=== PATIENT | male | born 1955 | race Caucasian/White ===

== ENCOUNTER 2017-06-20 15:14 | Emergency (ER) | payer MEDICAID ==
[~2017-06-20] VITALS: Ht 170.2 cm; Wt 75.0 kg
[~2017-06-20 15:14] MED LIST: CYAN100015 IM; CYCL-36 PO; ENAL20TA81 PO; HYDR12.56 PO; ISOS30TA17 PO; METO100T PO; NITR0.4S SL; OMEP20TA39 PO; PRED5TAB PO; SIMV20 PO; SULF500 PO
[2017-06-20 15:25] VITALS: BP 212/104; PULSE 77; RESP 16; TEMP 98; O2SAT 100
[2017-06-20 15:28] VITALS: BP 208/104; PULSE 75; RESP 16; O2SAT 99
--- NOTE | 2017-06-20 15:44 | PD ---
HPI . Right-sided flank pain Chief Complaint: Flank/Kidney Pain Time Seen by Provider: 15:44 Travel History International Travel<30 days: No Contact w/Intl Traveler<30days: No Traveled to known affect area: No History of Present Illness HPI 61-year-old male presents to the emergency department via EMS for evaluation of sudden onset right-sided flank pain that started around 9 AM this morning. Patient states pain like this has never happened before. Patient does not have any history of nephrolithiasis. Patient denies any traumas or injuries occurring before the pain started. Patient states he was sitting in a chair relaxing when the pain came out of nowhere. Patient states he does not feel nauseous now however he has vomited a couple times today due to the pain being so severe. Patient denies any dysuria or hematuria. Patient denies any chest pain, shortness breath, fevers, chills, malaise, abdominal pain, diarrhea, lightheadedness or weakness. PFSH Past Medical History Hx Anticoagulant Therapy: Yes (650 MG ASPIRIN DAILY) Anemia: Yes Cancer: Yes Cardiac Catheterization: Yes Cardiovascular Problems: Yes (STENTS) High Cholesterol: Yes Chemotherapy: No Chest Pain: Yes Congestive Heart Failure: No Cerebrovascular Accident: No Coronary Artery Disease: Yes Diabetes: No Diminished Hearing: No Endocrine: No Gastrointestinal Disorders: Yes (CROHN'S DISEASE) GERD: Yes Genitourinary: No Hypertension: Yes Immune Disorder: No Musculoskeletal: No Neurologic: No Psychiatric: No Reproductive: No Respiratory: No Immunizations Current: No Myocardial Infarction: Yes (IN X5) Triglycerides - High: Yes Tetanus Vaccination: < 5 Years Influenza Vaccination: No Past Surgical History Body Medical Devices: cardiac stents Cardiac Surgery: Yes (3 CARDIAC STENTS, CARDIAC CATH) Coronary Stent: Yes Neurologic Surgery: No Oral Surgery: Yes (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) Other Surgery: Yes (NOSE, FACE, NECK, JAW CANCER REMOVAL) Social History Alcohol Use: No Tobacco Use: No Substance Use: No Allergies-Medications (Allergen,Severity, Reaction): Coded Allergies: adhesive (Verified Allergy, Severe, TAPE = RASH & WELTS, 06/20/17) penicillin G (Verified Allergy, Severe, Rash, 06/20/17) Reported Meds & Prescriptions Reported Meds & Active Scripts Active Ketorolac (Ketorolac Tromethamine) 10 Mg Tab 10 Mg PO TID Percocet (Oxycodone-Acetaminophen) 10-325 mg Tab 1 Tab PO Q4H PRN Zofran Odt (Ondansetron Odt) 4 Mg Tab 4 Mg SL Q6HR PRN Review of Systems Except as stated in HPI: all other systems reviewed are Neg Physical Exam Narrative GENERAL: Well-nourished, well-developed 61-year-old male patient that is writhing in pain on the stretcher SKIN: Focused skin assessment flushed/warm/dry. HEAD: Normocephalic. Atraumatic EYES: No scleral icterus. No injection or drainage. NECK: Supple, trachea midline. No JVD or lymphadenopathy. CARDIOVASCULAR: Regular rate and rhythm without murmurs, gallops, or rubs. RESPIRATORY: Breath sounds equal bilaterally. No accessory muscle use. GASTROINTESTINAL: Abdomen soft, non-tender, nondistended. MUSCULOSKELETAL: No cyanosis, or edema. BACK: Nontender without obvious deformity. Right sided CVA tenderness. Data Data Last Documented VS Vital Signs Date Time Temp Pulse Resp B/P (MAP) Pulse Ox O2 Delivery O2 Flow Rate FiO2 06/20/17 16:09 75 16 180/96 (124) 99 Room Air 06/20/17 15:25 98.0 Orders Orders Hydromorphone Pf Inj (Dilaudid Pf Inj) (06/20/17 15:45) Basic Metabolic Panel (Bmp) (06/20/17 15:38) Complete Blood Count With Diff (06/20/17 15:38) Urinalysis - C+S If Indicated (06/20/17 15:38) Iv Access Insert/Monitor (06/20/17 15:38) Ondansetron Inj (Zofran Inj) (06/20/17 15:45) Sodium Chlor 0.9% 1000 Ml Inj (Ns 1000 M (06/20/17 15:45) Lipase (06/20/17 15:38) Ct Abd/Pel W/O Iv Contrast (06/20/17 ) Ketorolac Inj (Toradol Inj) (06/20/17 17:00) Labs Laboratory Tests Test 06/20/17 15:45 White Blood Count 19.6 TH/MM3 Red Blood Count 4.20 MIL/MM3 Hemoglobin 13.4 GM/DL Hematocrit 37.2 % Mean Corpuscular Volume 88.4 FL Mean Corpuscular Hemoglobin 31.8 PG Mean Corpuscular Hemoglobin Concent 35.9 % Red Cell Distribution Width 13.5 % Platelet Count 308 TH/MM3 Mean Platelet Volume 7.8 FL Neutrophils (%) (Auto) 89.7 % Lymphocytes (%) (Auto) 3.3 % Monocytes (%) (Auto) 7.0 % Eosinophils (%) (Auto) 0.0 % Basophils (%) (Auto) 0.0 % Neutrophils # (Auto) 17.6 TH/MM3 Lymphocytes # (Auto) 0.6 TH/MM3 Monocytes # (Auto) 1.4 TH/MM3 Eosinophils # (Auto) 0.0 TH/MM3 Basophils # (Auto) 0.0 TH/MM3 CBC Comment DIFF FINAL Differential Comment Urine Color YELLOW Urine Turbidity CLEAR Urine pH 5.5 Urine Specific [place] 1.025 Urine Protein NEG mg/dL Urine Glucose (UA) NEG mg/dL Urine Ketones 40 mg/dL Urine Occult Blood TRACE Urine Nitrite NEG Urine Bilirubin NEG Urine Urobilinogen LESS THAN 2.0 MG/DL Urine Leukocyte Esterase NEG Urine RBC 1 /hpf Urine WBC 1 /hpf Urine Mucus FEW /lpf Microscopic Urinalysis Comment CULT NOT INDICATED Blood Urea Nitrogen 14 MG/DL Creatinine 1.30 MG/DL Random Glucose 151 MG/DL Calcium Level 8.2 MG/DL Sodium Level 140 MEQ/L Potassium Level 2.8 MEQ/L Chloride Level 105 MEQ/L Carbon Dioxide Level 22.7 MEQ/L Anion Gap 12 MEQ/L Estimat Glomerular Filtration Rate 56 ML/MIN Lipase 147 U/L MDM Medical Decision Making Medical Screen Exam Complete: Yes Emergency Medical Condition: Yes Medical Record Reviewed: Yes Interpretation(s) Hypertensive, afebrile Differential Diagnosis Differential diagnoses include but not limited to nephrolithiasis, UTI, pyelonephritis, AAA, aortic dissection, Narrative Course Patient was placed on monitor, IV obtained and blood work sent to the lab. UA obtained and sent to the lab. Patient given 1 mg IV Dilaudid and 4 mg IV Zofran to treat his pain and nausea at this time. Patient given 1 L normal saline bolus. CT of abdomen without contrast ordered and pending. CBC, CMP and UA ordered and pending. Abdomen CT reveals Partial obstruction of the right kidney secondary to 3 mm right UVJ calcification. Moderate hydronephrosis and marked stranding around the right kidney. Areas of distortion within the mesentery related to previous surgery. The mesentery looks like it would be symptomatic but the patient clearly affected by the right UVJ calculus. Patient will be given 30 mg IV Toradol. Based on patient's symptoms, clinical presentation, lab results, radiological results, vital sign review and physical exam it is not necessary to admit the patient to the hospital or keep the patient in the emergency department for further evaluation. Patient will be discharged home with prescription for Percocet, Toradol, Flomax and Zofran. Patient will be given a urinary strainer to collect the stone and given instructions to follow-up with the urologist. Laboratory Tests Test 06/20/17 15:45 White Blood Count 19.6 TH/MM3 Red Blood Count 4.20 MIL/MM3 Hemoglobin 13.4 GM/DL Hematocrit 37.2 % Mean Corpuscular Volume 88.4 FL Mean Corpuscular Hemoglobin 31.8 PG Mean Corpuscular Hemoglobin Concent 35.9 % Red Cell Distribution Width 13.5 % Platelet Count 308 TH/MM3 Mean Platelet Volume 7.8 FL Neutrophils (%) (Auto) 89.7 % Lymphocytes (%) (Auto) 3.3 % Monocytes (%) (Auto) 7.0 % Eosinophils (%) (Auto) 0.0 % Basophils (%) (Auto) 0.0 % Neutrophils # (Auto) 17.6 TH/MM3 Lymphocytes # (Auto) 0.6 TH/MM3 Monocytes # (Auto) 1.4 TH/MM3 Eosinophils # (Auto) 0.0 TH/MM3 Basophils # (Auto) 0.0 TH/MM3 CBC Comment DIFF FINAL Differential Comment Urine Color YELLOW Urine Turbidity CLEAR Urine pH 5.5 Urine Specific [place] 1.025 Urine Protein NEG mg/dL Urine Glucose (UA) NEG mg/dL Urine Ketones 40 mg/dL Urine Occult Blood TRACE Urine Nitrite NEG Urine Bilirubin NEG Urine Urobilinogen LESS THAN 2.0 MG/DL Urine Leukocyte Esterase NEG Urine RBC 1 /hpf Urine WBC 1 /hpf Urine Mucus FEW /lpf Microscopic Urinalysis Comment CULT NOT INDICATED Blood Urea Nitrogen 14 MG/DL Creatinine 1.30 MG/DL Random Glucose 151 MG/DL Calcium Level 8.2 MG/DL Sodium Level 140 MEQ/L Potassium Level 2.8 MEQ/L Chloride Level 105 MEQ/L Carbon Dioxide Level 22.7 MEQ/L Anion Gap 12 MEQ/L Estimat Glomerular Filtration Rate 56 ML/MIN Lipase 147 U/L Diagnosis Primary Impression: Right nephrolithiasis Referrals: Primary Care Physician Urologist Patient Instructions: General Instructions, Kidney Stones (GEN) Additional Instructions: Please return to emergency department if your symptoms return or worsen. Follow up with your primary care provider. Take medications as prescribed. Takes Zofran as directed as needed for nausea. Take Percocet as distracted as needed for pain. Use caution as this medication might make you drowsy. Take Toradol as directed as needed for pain. Med/Other Pt SpecificInfo: Prescription(s) given Scripts Tamsulosin (Flomax) 0.4 Mg Cap 0.4 MG PO HS for Manage Prostate Problems, #5 CAP 0 Refills Prov: Lottie Fierro 06/20/17 Ketorolac (Ketorolac) 10 Mg Tab 10 MG PO TID for Pain Management, #20 TAB 0 Refills Prov: Gilbert Morales MD 06/20/17 Oxycodone-Acetaminophen (Percocet) 10-325 mg Tab 1 TAB PO Q4H Y for PAIN, #12 TAB 0 Refills Prov: Gilbert Morales MD 06/20/17 Ondansetron Odt (Zofran Odt) 4 Mg Tab 4 MG SL Q6HR Y for Nausea/Vomiting, #10 TAB 0 Refills Prov: Lottie Fierro 06/20/17 Disposition: 01 DISCHARGE HOME Condition: Stable Lottie Fierro Jun 20, 2017 15:44
[2017-06-20] MEDS ORDERED: HYDROmorphone HCL PF 1 MG/ML VIAL IV PUSH ONE (15:45)
[2017-06-20] MEDS ORDERED: SODIUM CHLOR 0.9% 1000 ML INJ 1,000 ML IV ONE (15:45)
[2017-06-20] MEDS ORDERED: ONDANSETRON HCL 4 MG/2 ML VIAL IVP ONE (15:45)
[2017-06-20 16:09] VITALS: BP 180/96; PULSE 75; RESP 16; O2SAT 99
[2017-06-20 16:29] LABS: AUTOMATED NEUTROPHIL # 17.6 TH/MM3 (1.8-7.7); HEMATOCRIT 37.2 % (39.0-51.0); HEMO FLAGS DIFF FINAL; LYMPH % 3.3 % (9.0-44.0); LYMPHOCYTE # 0.6 TH/MM3 (1.0-4.8); MEAN CELL VOLUME 88.4 FL (80.0-100.0); MEAN CORPUSCULAR HEMOGLOBIN 31.8 PG (27.0-34.0); MEAN CORPUSCULAR HGB CONC 35.9 % (32.0-36.0); NEUT % 89.7 % (16.0-70.0); PLATELET COUNT 308 TH/MM3 (150-450); RED CELL DISTRIBUTION WIDTH 13.5 % (11.6-17.2); WHITE BLOOD COUNT 19.6 TH/MM3 (4.0-11.0)
[2017-06-20 16:41] LABS: BLOOD, URINE TRACE (NEG); GLUCOSE,URINE NEG (NEG); KETONE, URINE 40 mg/dL (NEG); MUCUS URINE FEW /lpf (OCC); NITRITE,URINE NEG (NEG); PH, URINE 5.5 (5.0-8.5); URINE COLOR YELLOW (YELLW/STRAW)
[2017-06-20 16:44] LABS: COMMENT (UR) CULT NOT INDICATED; CULTURE IF INDICATED CULT NOT INDICATED
[2017-06-20 16:51] LABS: BICARBONATE 22.7 MEQ/L (21.0-32.0)
[2017-06-20 16:53] LABS: POTASSIUM 2.8 MEQ/L (3.5-5.1)
[2017-06-20] MEDS ORDERED: ZOFR4TAB3 SL (16:57)
[2017-06-20] MEDS ORDERED: PERC10TA27 PO (16:58)
[2017-06-20] MEDS ORDERED: KETO10 PO (16:58)
[2017-06-20] MEDS ORDERED: KETOROLAC TROMETHAMINE 30 MG/ML (IVP) VIAL IV PUSH ONE (17:00)
--- NOTE | 2017-06-20 17:01 | RADRPT ---
EXAM DATE/TIME: 06/20/2017 16:22 [facility] COMPARISON: CT ABDOMEN & PELVIS W/O CONTRAST, September 15, 2015, 7:47. INDICATIONS : Right flank pain today. ORAL CONTRAST: No oral contrast ingested. RADIATION DOSE: 13.55 CTDIvol (mGy) MEDICAL HISTORY : Hypertension. Cardiovascular disease SURGICAL HISTORY : None. ENCOUNTER: Initial ACUITY: 1 day PAIN SCALE: 7/10 LOCATION: Right flank TECHNIQUE: Volumetric scanning of the abdomen and pelvis was performed. Using automated exposure control and ad justment of the mA and/or kV according to patient size, radiation dose was kept as low as reasonably achievable to obtain optimal diagnostic quality images. DICOM format image data is available electro nically for review and comparison. FINDINGS: LOWER LUNGS: The visualized lower lungs are clear. LIVER: Homogeneous density without lesion. There is no dilation of the biliary tree. No calcified gallston es. SPLEEN: Normal size without lesion. PANCREAS: Within normal limits. KIDNEYS: There is hydronephrosis on the right side. The right kidney is enlarged with marked perinephric stran ding. The ureter is dilated all the way to the right UVJ where there is a 3 mm calcification. 2 small stones remain in an otherwise unremarkable left kidney ADRENAL GLANDS: Within normal limits. VASCULAR: There is no aortic aneurysm. 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 The large calcification seen at 2014 is no longer identified. ABDOMINAL WALL: Within normal limits. RETROPERITONEUM: There is no lymphadenopathy. BLADDER: No wall thickening or mass. REPRODUCTIVE: Within normal limits. INGUINAL: Fat-containing left inguinal hernia. MUSCULOSKELETAL: Within normal limits for patient age. CONCLUSION: Partial obstruction of the right kidney secondary to 3 mm right UVJ calcification. Moderate hydronep hrosis and marked stranding around the right kidney. Areas of distortion within the mesentery relate d to previous surgery. The mesentery looks like it would be symptomatic but the patient clearly affec kt by the right UVJ calculus. Richie Charles MD on June 20, 2017 at 16:54 Board Certified Radiologist. This report was verified electronically.
[2017-06-20] MEDS ORDERED: TAMS5CAP PO (17:10)
[2017-06-20 17:37] VITALS: BP 152/92
== END 2017-06-20 17:44 | disposition home or self-care (01) ==
LOC: NEPE 15:14
DX: N20.0 Calculus of kidney (principal); D64.9 Anemia, unspecified; I10 Essential (primary) hypertension; Z79.01 Long term (current) use of anticoagulants
CPT/HCPCS: 74176; 80048; 81001; 83690; 85025; 96374; 96375; 99285; J1170; J1885; J2405; J7030

== ENCOUNTER 2018-08-28 16:55 | Inpatient (IN) ==
[2018-08-28] MEDS ORDERED: niCARdipine Inj 25 MG in Sodium Chlor 0.9% Inj 240 ML IV.CONT PRN (17:07)
--- NOTE | 2018-08-28 17:21 | CT ---
EXAM DATE: 08/28/2018 5:18 PM EST AGE/SEX: 62 years / Male INDICATIONS: Stroke alert, left sided weakness. CLINICAL DATA: This is the patient's initial encounter. Patient reports that signs and symptoms have been present for 1 day and indicates a pain score of Nonresponsive. MEDICAL/SURGICAL HISTORY: Non-responsive. Non-responsive. RADIATION DOSE: 66.34 CTDI (mGy) COMPARISON: No prior exams available for comparison. TECHNIQUE: CT of the head without contrast. Using automated exposure control and adjustment of the mA and/or kV according to patient size, radiation dose was kept as low as reasonably achievable to ob tain optimal diagnostic quality images. DICOM format image data is available electronically for revi ew and comparison. FINDINGS: Cerebrum: The ventricles are normal for age. No evidence of midline shift, mass lesion, hemorrhage or acute infarction. No extraaxial fluid collections are seen. Posterior Fossa: The cerebellum and brainstem are intact. The 4th ventricle is midline. The cerebe llopontine angle is unremarkable. Extracranial: The visualized portion of the orbits is intact. Skull: The calvaria is intact. No evidence of skull fracture. CONCLUSION: Negative noncontrast CT examination the head. Report was called by Dr. Llanos to Dr. Watts at 5:19 PM Electronically signed by: Peter Llanos MD 08/28/2018 5:20 PM EST
[2018-08-28 17:29] LABS: Baso # (Auto) 0.1 th/mm3 (0.0-0.2); Baso % (Auto) 0.6 % (0.0-2.0); Eos % (Auto) 0.1 % (0.0-4.0); Hematocrit 35.1 % (39.0-51.0); Hemoglobin 11.8 gm/dL (13.0-17.0); Lymph # (Auto) 2.9 th/mm3 (1.0-4.8); Lymph % (Auto) 21.5 % (9.0-44.0); Mean Corpuscular HGB Conc 33.5 % (32.0-36.0); Mean Corpuscular Hemoglobin 27.5 pg (27.0-34.0); Mean Corpuscular Volume 82.1 fL (80.0-100.0); Mean Platelet Volume 7.7 fL (7.0-11.0); Mono # (Auto) 1.3 th/mm3 (0.0-0.9); Mono % (Auto) 9.6 % (0.0-8.0); Neut # (Auto) 9.2 th/mm3 (1.8-7.7); Neut % (Auto) 68.2 % (16.0-70.0); Platelet Count 439 th/mm3 (150-450); Red Blood Count 4.27 mil/mm3 (4.50-5.90); Red Cell Distribution Width 16.7 % (11.6-17.2); White Blood Count 13.5 th/mm3 (4.0-11.0)
--- NOTE | 2018-08-28 17:32 | CT ---
EXAM DATE: 08/28/2018 5:23 PM EST AGE/SEX: 62 years / Male INDICATIONS: Stroke alert, left sided weakness. CLINICAL DATA: This is the patient's initial encounter. Patient reports that signs and symptoms have been present for 1 day and indicates a pain score of Nonresponsive. MEDICAL/SURGICAL HISTORY: Non-responsive. Non-responsive. RADIATION DOSE: 9.85 CTDI (mGy) ; Combined studies COMPARISON: C, CT HEAD W/O CONTRAST, 08/28/2018. [facility] [place], CTA NECK W CONTRAST W 3D, 08/28/2018. . TECHNIQUE: Volumetric scanning was performed using a multi-row detector CT scanner during bolus infu jaime of 75 ml Visipaque 320 (iodixanol) nonionic water-soluble contrast as a cumulative dose for mul tiple exams. The data was post processed with a variety of visualization algorithms including full volume maximum intensity projection, multi-planar sliding thin slab reformation, curved planar reform ation, and surface rendering techniques. Using automated exposure control and adjustment of the mA a nd/or kV according to patient size, radiation dose was kept as low as reasonably achievable to obtain optimal diagnostic quality images. DICOM format image data is available electronically for review a nd comparison. FINDINGS: Anterior circulation: There is a calcified atherosclerotic plaque in the intracranial aspect of the i nternal carotid arteries bilaterally causing mild luminal irregularity and only mild luminal narrowin g. No high-grade stenosis is present. A1 segments are patent and symmetric. More peripheral anterior cerebral arteries demonstrate flow without significant abnormality. The middle cerebral arteries bila terally demonstrate symmetric blood flow without vessel truncation or high-grade stenosis. No aneurys m is identified. Posterior circulation: Portions of the left vertebral artery demonstrate no blood flow but it is jerad nstituted at the C1 level. Basilar artery and posterior cerebral arteries demonstrate no significant stenosis. There is persistent circulation on the right. CONCLUSION: 1. No large vessel occlusion is identified. There is mild to moderate calcified atherosclerotic plaq ue in the intracranial aspect of the internal carotid arteries bilaterally without high-grade stenosi s. 2. 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 These findings were telephoned to Dr. Shaikh on 08/28/2018 5:30 PM. Electronically signed by: Peter Dobbs MD 08/28/2018 5:31 PM EST
[2018-08-28] MEDS ORDERED: Labetalol HCl Inj 100 MG/20 ML Vial IV.PUSH PRN (17:38)
--- NOTE | 2018-08-28 17:44 | ED ---
HPI General Chief Complaint: Stroke Alert Stated Complaint: Stroke Alert Time Seen by Provider: 08/28/18 17:05 Source: patient and EMS Mode of arrival: EMS Limitations: no limitations History of Present Illness HPI Narrative: 62 yo M one prior to onset developed LUE and LUE weakness evidently coupled with dysarthria. Onset sudden. Timing constant. Time of onset approx 400pm. No headache prior to onset. Onset occurred at rest. + Hx Crohn's disease. No GI bleed reported within last 12 months. No similar prior episode. Onset (ago): hour(s) (1) History of same: No Severity: moderate Quality: Reports weak Relieving factors: none Exacerbating factors: none Context: Reports sudden onset On Anticoagulants: No Treatments Prior to Arrival: Reports none Related Data Allergies Allergy/AdvReac Type Severity Reaction Status Date / Time adhesive Allergy Severe TAPE = Verified 06/20/17 15:33 RASH & WELTS penicillin G Allergy Severe Rash Verified 06/20/17 15:33 Review of Systems ROS: all other systems reviewed are negative [facility] Medical History Medical History Acute Crohn's disease (Acute) CAD (coronary artery disease) (Acute) CHF (congestive heart failure) (Acute) Skin cancer (melanoma) (Acute) Social History Social History Substance History: No History of Abuse Second Hand Smoke Exposure: No Smoking Status: Never smoker How Often Do You Have a Drink Containing Alcohol: Never Recent Travel in [facility] within the Last 8 Weeks: No Recent Out of Country Travel within the Last 8 Weeks: No Exam Narrative Exam Narrative: GENERAL: 62 yo M, WNWD, mild distress 2/2 anxiety and/or pain SKIN: Focused skin assessment warm/dry. HEAD: Atraumatic. Normocephalic. EYES: Pupils equal and round. No scleral icterus. No injection or drainage. ENT: No nasal bleeding or discharge. Mucous membranes pink and moist. NECK: Trachea midline. No JVD. CARDIOVASCULAR: Regular rate and rhythm. No murmur appreciated. RESPIRATORY: No accessory muscle use. Clear to auscultation. Breath sounds equal bilaterally. GASTROINTESTINAL: Abdomen soft, non-tender, nondistended. Hepatic and splenic margins not palpable. MUSCULOSKELETAL: No obvious deformities. No clubbing. No cyanosis. No edema. NEUROLOGICAL: LUE weakness present. LUE weakness present. Sensation is preserved throughout. RUE strength normal. RLE strength normal. CN are equal bilaterally. Speech is fluent. PSYCHIATRIC: Cooperative. No HI/SI. Procedures Hemaprompt Stool Procedural Steps Taken: specimen placed in appropriate test area, developer placed on specimen and control areas and controls appropriately positive and negative Hemaprompt Stool Result: positive Course Initial Documented Vital Signs Temperature 98.5 F 08/28/18 17:38 Pulse Rate 104 H 08/28/18 17:38 Respiratory Rate 18 08/28/18 17:38 Blood Pressure 176/99 H 08/28/18 17:38 Pulse Oximetry 91 L 08/28/18 17:38 Last Documented Vital Signs Temperature 98.3 F 08/28/18 17:45 Pulse Rate 96 H 08/28/18 17:45 Respiratory Rate 18 08/28/18 17:45 Blood Pressure 174/99 H 08/28/18 17:45 Pulse Oximetry 94 L 08/28/18 17:45 Critical Care Time Critical Care Time: Yes Total Critical Care Time: 31 Attestation: Aggregate critical care time was 31 minutes. Time to perform other separately billable procedures was not included in the critical care time. My time did not include minutes spent treating any other patients simultaneously or on activities that did not directly contribute to the patient's treatment. The services I provided to this patient were to treat and/or prevent clinically significant deterioration that could result in: permanent disability, inappropriate TPA administration I provided critical care services requiring my management, as noted below: Chart data review, documentation time, medication orders and management, vital sign assessments/reviewing monitor data, ordering and reviewing lab tests, ordering and interpreting/reviewing x-rays and diagnostic studies, care of the patient and discussion of the patient with the admitting physicians. NIH Stroke Scale NIH Stroke Scale Level of Consciousness: 0-Alert Orientation Questions: 0-Answers both correct Responds to Commands: 0-Both tasks correct Gaze Eye Movement: 0-Horizontal movement WNL Visual Arechiga: 0-No visual field defect Facial Movement: 0-Normal Motor Functions Arm LEFT: 3-No effort against gravity Motor Functions Arm RIGHT: 0-No drift Motor Functions Leg LEFT: 4-No movement Motor Functions Leg RIGHT: 0-No drift Limb Ataxia: 0-No ataxia Sensory Loss: 0-No sensory loss Best Language: 0-Normal Articulation: 0-Normal Extinction or Inattention Sensory: 0-Absent Total: 7 Quality Measure Queries Stroke Thrombolytic Contraindications: Active Internal Bleeding (Grossly positive stool guaiac study) Medical Decision Making MDM Narrative Medical decision making narrative: Pt arrives as a stroke alert 2/2 L sided weakness. Normal head CT. Stool guaiac grossly positive. TPA withheld due to concern for GI bleed. BP has trended between 180s-210s in ED. d/w Dr Shaikh for neurology, no TPA in setting of positive stool guaiac, ok for permissive HTN up to 210. call to admitted service at 535pm Purposeful intermittent LUE motor activity observed in the ED. d/w Dr Mason for [facility] Medical Screen Exam Complete: Yes Emergency Medical Condition: Yes Lab Data Lab results reviewed: Yes I reviewed the patient's lab results. Result diagrams: 08/28/18 17:00 08/28/18 17:00 Lab Results 08/28/18 08/28/18 08/28/18 Range/Units 17:00 17:00 17:00 WBC 13.5 H (4.0-11.0) th/mm3 RBC 4.27 L (4.50-5.90) mil/mm3 Hgb 11.8 L (13.0-17.0) gm/dL POC Hgb (Calc) 11.9 L (13.0-17.0) g/dL Hct 35.1 L (39.0-51.0) % POC Hct 35.0 L (39-51.0) % MCV 82.1 (80.0-100.0) fL MCH 27.5 (27.0-34.0) pg MCHC 33.5 (32.0-36.0) % RDW 16.7 (11.6-17.2) % Plt Count 439 (150-450) th/mm3 MPV 7.7 (7.0-11.0) fL Neut % (Auto) 68.2 (16.0-70.0) % Lymph % (Auto) 21.5 (9.0-44.0) % [place] % (Auto) 9.6 H (0.0-8.0) % Eos % (Auto) 0.1 (0.0-4.0) % Baso % (Auto) 0.6 (0.0-2.0) % Neut # (Auto) 9.2 H (1.8-7.7) th/mm3 Lymph # (Auto) 2.9 (1.0-4.8) th/mm3 [place] # (Auto) 1.3 H (0.0-0.9) th/mm3 Eos # (Auto) 0.0 (0.0-0.4) th/mm3 Baso # (Auto) 0.1 (0.0-0.2) th/mm3 WBC Differential . Differential Comment Auto diff final PT 10.0 (9.8-11.6) sec INR 1.0 Ratio APTT 17.8 L (23.4-31.7) sec POC Sodium 139 (137-144) mmol/L Sodium 141 (136-145) meq/L POC Potassium 3.1 L (3.6-5.0) mmol/L Potassium 3.2 L (3.5-5.1) meq/L POC Chloride 101 L (102-111) mmol/L Chloride 104 (98-107) meq/L Carbon Dioxide 22.5 (21.0-32.0) meq/L Anion Gap 15 (5-15) meq/L POC BUN 14 (5-21) mg/dL BUN 15 (7-18) mg/dL Creatinine 1.12 (0.60-1.30) mg/dL POC Creatinine 1.0 (0.6-1.3) mg/dL Estimated GFR 66 L (>89) mL/min POC Glucose 161 H (68-110) mg/dL Random Glucose 155 H (74-106) mg/dL Calcium 8.5 (8.5-10.1) mg/dL Imaging Data Radiologist's impression: Head CT 08/28/18 17:00 CONCLUSION: Negative noncontrast CT examination the head. Report was called by Dr. Llanos to Dr. Watts at 5:19 PM Head CTA 08/28/18 17:00 CONCLUSION: 1. No large vessel occlusion is identified. There is mild to moderate calcified atherosclerotic plaque in the intracranial aspect of the internal carotid arteries bilaterally without high-grade stenosis. 2. 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 These findings were telephoned to Dr. Shaikh on 08/28/2018 5:30 PM. Discharge Plan Discharge Disposition Patient Disposition: ED Admit(ED Internal Use Only) Discharge Order Discharge Orders: ED Use Only Admit Order (Routine); Ordered 08/28/18 Ordered By: Son Watts Physicians Team ED Provider: Son Watts Primary Care Provider: Geoff Byrd Status ED Status: With Doctor
[2018-08-28 17:48] LABS: Activated Partial Thrombo Time 17.8 sec (23.4-31.7)
[2018-08-28 17:50] LABS: Anion Gap 15 meq/L (5-15); Blood Urea Nitrogen 15 mg/dL (7-18); Calcium 8.5 mg/dL (8.5-10.1); Carbon Dioxide 22.5 meq/L (21.0-32.0); Chloride 104 meq/L (98-107); Glomerular Filtration Rate 66 mL/min (>89); Glucose,Random 155 mg/dL (74-106); Potassium 3.2 meq/L (3.5-5.1); Sodium 141 meq/L (136-145)
[2018-08-28 17:53] LABS: Creatine Kinase 40 U/L (39-308)
--- NOTE | 2018-08-28 17:55 | CT ---
XAM DATE: 08/28/2018 5:38 PM EST AGE/SEX: 62 years / Male INDICATIONS: Stroke alert, left sided weakness. CLINICAL DATA: This is the patient's initial encounter. Patient reports that signs and symptoms have been present for 1 day and indicates a pain score of Nonresponsive. MEDICAL/SURGICAL HISTORY: Non-responsive. Non-responsive. RADIATION DOSE: 9.85 CTDI (mGy) ; Combined studies COMPARISON: . TECHNIQUE: Volumetric scanning was performed using a multirow detector CT scanner during bolus infus ion of 75 ml Visipaque 320 (iodixanol) nonionic water-soluble contrast as a cumulative dose for mult iple exams. The data was postprocessed with a variety of visualization algorithms including full-vo lume maximum intensity projection, multiplanar sliding thin-slab reformation, curved-planar reformati on, and surface-rendering techniques. Using automated exposure control and adjustment of the mA and/ or kV according to patient size, radiation dose was kept as low as reasonably achievable to obtain op timal diagnostic quality images. DICOM format image data is available electronically for review and comparison. FINDINGS: There does appear to be some motion blurring at the level the carotid bulb regions. This m ay be secondary to swallowing during the examination. Aortic Arch: There is a three-vessel origin of the great vessels from the aorta. There is mild soft plaque at the origin of the left subclavian artery without significant stenosis. Right Carotid: The common carotid artery is intact. There is dense calcified plaque at the carotid bulb region. This limits evaluation of the lumen in this region. On the curved reformatted images, th ere appears to be decreased contrast concerning for significant stenosis. The motion blurring this re gion also limits the interpretation of the carotid bulb region. The internal carotid artery lumen i s smooth without stenosis. The external carotid artery is intact. Left Carotid: The common carotid artery is intact. There is mild calcified plaque at the carotid bu lb region but a significant stenosis is not seen. The internal carotid artery lumen is smooth withou t stenosis. The external carotid artery is intact. Vertebrals: The vertebral arteries are asymmetric with the right due to large being larger. It is pa tent throughout the neck. Contrast is not seen within the upper left vertebral artery. It appears to reconstitute with contrast at the C1 level. Percent stenosis is calculated using the diameter of the stenotic region over the diameter of the nor mal distal internal carotid artery. CONCLUSION: 1. Dense calcified plaque at the right carotid bulb region with a possible significant stenosis with decreased contrast in this region. The evaluation this area is limited secondary to the dense calcif ication and suspected motion blurring in this region likely from swallowing. One could consider furth er evaluating this region with a repeat CTA at some point versus an MRA. 2. Possible occlusion versus very diminished flow in the mid to upper aspect of the left vertebral a rtery. There is contrast seen within the proximal left vertebral artery and in the left vertebral art marlena at the C1 level. Electronically signed by: Peter Llanos MD 08/28/2018 5:53 PM EST
--- NOTE | 2018-08-28 17:57 | XR ---
EXAM DATE: 08/28/2018 5:53 PM EST AGE/SEX: 62 years / Male INDICATIONS: Stroke Alert, cough. CLINICAL DATA: This is the patient's initial encounter. Patient reports that signs and symptoms have been present for 1 day and indicates a pain score of 0/10. MEDICAL/SURGICAL HISTORY: Non-responsive. Non-responsive. COMPARISON: [facility], CHEST SINGLE AP, 07/09/2012. . FINDINGS: The heart size is within normal limits. The lungs are free of focal consolidation. There are possible small calcified granulomas seen. The costophrenic angles are clear. CONCLUSION: No acute abnormality is seen. Electronically signed by: Peter Llanos MD 08/28/2018 5:55 PM EST
--- NOTE | 2018-08-28 17:57 | P.HPFP ---
History of Present Illness Primary Care Physician: Geoff Byrd DO <Rodrick Cain - 08/29/18 15:36> Geoff Byrd DO <Aaron Mason - 08/28/18 17:57> History of Present Illness: Patient is a 62-year-old male past history of hypertension, diabetes, Crohn's disease who presents today for left-sided weakness. He reports approximate 5 hours prior to admission he was driving his car home, felt sudden face neck and left shoulder pain as well as could not see out of his right eye. He pulled over his car to the side of the road and waited for it to resolve, which it did not. He was close to his house so he continued to drive home, reached his home and had someone call an ambulance for him. He took 3 nitroglycerin tablets at home to help relieve shoulder pain. They did not. Patient reports he is been having some left side pain and swelling with accompanying dizziness. He denies chest pain, shortness of breath , left jaw pain, changes in hearing, nausea, vomiting, fever, chills, abdominal pain, change in bowel movement, black or bloody stools, urinary incontinence, dysuria, urinary frequency, numbness or tingling in hands or feet. He states he has never had these symptoms before. Patient continues to endorse left- sided weakness and right-sided vision loss at this time. Denies scotoma, blurry vision, double vision. Medical history: HTN DM Crohns disease Surgical history: 3 previous cardiac stents Jaw cancer removal Family history: Mother: [place] at 56 Father: [place], passed at 62 Social history: no tobacco, none, no drugs <Aaron Mason - 08/28/18 21:53> - Diagnosis (1) CVA (cerebral vascular accident) (2) GI bleed (3) Diabetes (4) HTN (hypertension) (5) Hypokalemia <Aaron Mason - 08/28/18 22:08> (1) Right hemisphere, cerebral infarction (2) Symptomatic stenosis of right carotid artery (3) GI bleed (4) Crohns disease (5) Diabetes (6) HTN (hypertension) (7) Hypokalemia <Rodrick Cain - 08/29/18 15:36> Inpatient Certification: I certify that the inpatient services were ordered in accordance with Medicare regulations governing the order. This includes certification that hospital inpatient services are reasonable and necessary and in the case of services not specified as inpatient-only under 42 CFR 419.22(n), that they are appropriately provided as inpatient services in accordance to with the 2-midnight benchmark under 43 CFR 412.3(e) <AntRodrick - 08/29/18 15:36> Review of Systems All other systems reviewed negative except as stated in HPI <Aaron Mason - 08/28/18 17:57> PMFSH - History History Provided By: Patient <BrendonAaron randle - 08/28/18 17:57> - Medical History Medical History: Medical History (Last Updated 08/28/18 @ 17:42 by Peter Camacho) Acute Crohn's disease CAD (coronary artery disease) CHF (congestive heart failure) Skin cancer (melanoma) <CainRodrick - 08/29/18 15:36> Medical History (Last Updated 08/28/18 @ 17:42 by Peter Camacho) Acute Crohn's disease CAD (coronary artery disease) CHF (congestive heart failure) Skin cancer (melanoma) <Aaron Mason - 08/28/18 17:57> - Tobacco History Second Hand Smoke Exposure: No <Aaron Mason - 08/28/18 17:57> Tobacco Use In Past 30 Days: No <Aaron Mason - 08/28/18 17:57> Smoking Status: Never smoker <Aaron Mason - 08/28/18 17:57> - Alcohol History How Often Do You Have a Drink Containing Alcohol: Never <Aaron Mason - 17:57> - Substance Use History Substance History: No History of Abuse <Aaron Mason - 08/28/18 17:57> - Travel History Recent Travel in the [place] Within the Last 8 Weeks: No <Aaron Mason - 08/28 17:57> Recent Travel Out of the Country Within the Last 8 Weeks: No <Aaron Mason - 08/28/18 17:57> - Immunization History Tetanus Immunization: Unsure <Aaron Mason - 08/28/18 17:57> Medications and Allergies Allergies Allergy/AdvReac Type Severity Reaction Status Date / Time adhesive Allergy Severe TAPE = Verified 06/20/17 15:33 RASH & WELTS penicillin G Allergy Severe Rash Verified 06/20/17 15:33 <Rodrick Cain - 08/29/18 15:36> Home Medications Medication Instructions Recorded Confirmed Type aspirin 325 mg PO DAILY 08/28/18 08/28/18 History enalapril maleate 20 mg PO DAILY 08/28/18 08/28/18 History hydrochlorothiazide 25 mg PO DAILY 08/28/18 08/28/18 History isosorbide mononitrate 30 mg PO DAILY 08/28/18 08/28/18 History metoprolol tartrate 100 mg PO BID 08/28/18 08/28/18 History nitroglycerin 0.4 mg SUBLINGUAL Q5-15M PRN 08/28/18 08/28/18 History prednisone 10 mg PO DAILY 08/28/18 08/28/18 History prednisone 10 mg PO DAILY 08/28/18 08/28/18 History ranitidine HCl 300 mg PO DAILY 08/28/18 08/28/18 History simvastatin 20 mg PO QPM 08/28/18 08/28/18 History sulfasalazine 0.5 g PO Q6H 08/28/18 08/28/18 History <Rodrick Cain - 08/29/18 15:36> Active Medications: Active Medications Albuterol (Duoneb Neb (Prn)) 1 ampul NEB Q2HR NEB PRN PRN Reason: DYSPNEA Albuterol (Duoneb Neb (Galo)) 1 ampul NEB Q6HR NEB [facility] Last Admin: 08/29/18 15:31 Dose: 1 ampul Aspirin (Ecotrin) 325 mg PO DAILY G[facility]O Last Admin: 08/29/18 09:22 Dose: Not Given Dextrose (D50w Vial) 50 ml IV.PUSH UNSCH PRN PRN Reason: PER HYPOGLYCEMIA PROTOCOL Dextrose (D50w Vial) 50 ml IV.PUSH UNSCH PRN PRN Reason: PER HYPOGLYCEMIA PROTOCOL Glucagon (Glucagon Inj) 1 mg OTHER UNSCH PRN PRN Reason: for Hypoglycemia Protocol Glucagon (Glucagon Inj) 1 mg OTHER PRN PRN PRN Reason: for Hypoglycemia Protocol Nicardipine HCl 25 mg/ Sodium (Chloride) 250 mls @ 50 mls/hr IV.CONT TITRATE PRN; Protocol PRN Reason: Per Protocol Nitroglycerin/Dextrose (Nitroglycerin Drip Premix) 50 mg in 250 mls @ 12 mls/ hr IV.CONT TITRATE PRN; Protocol PRN Reason: Per Protocol Magnesium Sulfate 4 gm/ Sodium (Chloride) 100 mls @ 50 mls/hr IV.SIG UNSCH PRN PRN Reason: For Magnesium 0.9 - 1.1 mg/dL Potassium Chloride (Kcl 40 Meq Premix Inj) 40 meq in 100 mls @ 50 mls/hr IV.SIG Q2H PRN PRN Reason: For Potassium 2.8 - 3.2 mEq/L Potassium Chloride (Kcl 20 Meq Premix Inj) 20 meq in 100 mls @ 50 mls/hr IV.SIG Q2H PRN PRN Reason: For Potassium 3.3 - 3.5 mEq/L Potassium Chloride (Kcl 40 Meq Premix Inj) 40 meq in 100 mls @ 25 mls/hr IV.SIG UNSCH PRN PRN Reason: For Potassium 3.3 - 3.5 mEq/L Potassium Chloride (Kcl 20 Meq Premix Inj) 20 meq in 100 mls @ 50 mls/hr IV.SIG Q2H PRN PRN Reason: For Potassium 2.8 - 3.2 mEq/L Sodium Phosphate 30 mmol/ (Sodium Chloride) 260 mls @ 42 mls/hr IV.SIG UNSCH PRN PRN Reason: For Phosphorus < 2.5 mg/dL Magnesium Sulfate 2 gm/ Sodium (Chloride) 100 mls @ 50 mls/hr IV.SIG UNSCH PRN PRN Reason: For Magnesium 1.2 - 1.6 mg/dL Potassium Phosphate 30 mmol/ (Sodium Chloride) 260 mls @ 42 mls/hr IV.SIG UNSCH PRN PRN Reason: SEE LABEL COMMENTS Insulin Aspart (Novolog Insulin Correctional Sugar Inj) 0 unit SQ Q6HR GALO; Protocol Labetalol HCl (Trandate Inj) 5 mg IV.PUSH Q4H PRN PRN Reason: BP 210/110 Magnesium Oxide (Mag-Ox) 800 mg PO UNSCH PRN PRN Reason: For Magnesium 1.2 - 1.6 mg/dL Morphine Sulfate (Morphine Inj) 1 mg IV.PUSH Q4H PRN PRN Reason: DYSPNEA Potassium Bicarb/Potassium Chloride (K-Lyte Cl Eff) 50 meq PO UNSCH PRN PRN Reason: For Potassium 3.3 - 3.5 mEq/L Potassium Phosphate (K-Phos Original) 2,000 mg PO Q4H PRN PRN Reason: Phosphorus Less Than 2.5 mg/dL Potassium Phosphate (K-Phos Original) 2,000 mg PO UNSCH PRN PRN Reason: SEE LABEL COMMENTS Pravastatin Sodium (Pravachol) 40 mg PO DAILY [facility] Last Admin: 08/29/18 09:23 Dose: 40 mg Sulfasalazine (Azulfidine) 500 mg PO Q6HR [facility] Last Admin: 08/29/18 06:11 Dose: 500 mg <Rodrick Cain - 08/29/18 15:36> Active Medications Aspirin (Ecotrin) 325 mg PO DAILY [facility] Nicardipine HCl 25 mg/ Sodium (Chloride) 250 mls @ 50 mls/hr IV.CONT TITRATE PRN; Protocol PRN Reason: Per Protocol Labetalol HCl (Trandate Inj) 5 mg IV.PUSH Q4H PRN PRN Reason: BP 210/110 <Aaron Mason - 08/28/18 17:57> Exam Vital signs: Vital Signs 08/28/18 17:38 08/28/18 17:45 08/28/18 17:53 Temperature 98.5 F 98.3 F Pulse Rate 104 H 96 H Respiratory Rate 18 18 Blood Pressure 176/99 H 174/99 H Pulse Oximetry 91 L 94 L 93 L 08/28/18 18:46 08/28/18 19:45 08/28/18 21:00 Temperature 97.9 F Pulse Rate 73 87 78 Respiratory Rate 18 18 22 Blood Pressure 186/98 H 188/100 H 188/99 H Pulse Oximetry 94 L 97 08/29/18 00:00 08/29/18 04:00 08/29/18 08:00 Temperature 98.3 F 98.4 F 97.9 F Pulse Rate 72 72 72 Respiratory Rate 20 22 16 Blood Pressure 171/92 H 163/91 H 172/94 H Pulse Oximetry 98 100 100 08/29/18 09:38 08/29/18 13:25 08/29/18 13:56 Temperature 98.1 F Pulse Rate 87 87 Respiratory Rate 12 Blood Pressure 177/93 H Pulse Oximetry 98 99 08/29/18 15:32 Temperature Pulse Rate 50 L Respiratory Rate 18 Blood Pressure Pulse Oximetry 99 Intake & Output 08/28/18 08/29/18 08/29/18 18:59 06:59 18:59 Intake Total 100 / 100 1801 / 1801 Output Total 550 / 550 150 / 150 Balance -450 / -450 1651 / 1651 Weight 74.5 kg 74 kg Intake: IV 501 / 501 Heparin/NS PF Inj 500 ML @ 0 500 / 500 mls/hr .ROUTE .[facility]Err[facility]-ROBL[facility] ONE Rx#: [id number] Nitroglycerin Drip Premix 50 mg 1 / 1 In 250 ml @ 0 mls/hr .ROUTE . STK-MED ONE Rx#:[id number] Oral 100 / 100 Anesthesia Amount 1300 / 1300 Output: Urine 550 / 550 Estimated Blood Loss 50 / 50 Urine Amount (Catheter) 100 / 100 Indwelling Urethral Catheter 100 / 100 Other: Date of Last Bowel Movement 08/28/18 08/28/18 Weight On Admission 74 kg <Rodrick Cain - 08/29/18 15:36> Vital Signs 08/28/18 17:38 08/28/18 17:45 Temperature 98.5 F 98.3 F Pulse Rate 104 H 96 H Respiratory Rate 18 18 Blood Pressure 176/99 H 174/99 H Pulse Oximetry 91 L 94 L Intake & Output 08/27/18 08/28/18 08/28/18 18:59 06:59 18:59 Weight 74.5 kg <Aaron Mason - 08/28/18 17:57> Narrative: GENERAL: Laying in bed, no acute distress SKIN: Warm and dry. Circular scar on chest. HEAD: Atraumatic. Normocephalic. EYES: Pupils equal and round. No scleral icterus. No injection or drainage. ENT: No nasal bleeding or discharge. Mucous membranes pink and moist. NECK: Trachea midline. No JVD. CARDIOVASCULAR: Regular rate and rhythm. RESPIRATORY: No accessory muscle use. Clear to auscultation. Breath sounds equal bilaterally. GASTROINTESTINAL: Abdomen soft, non-tender, nondistended. Hepatic and splenic margins not palpable. MUSCULOSKELETAL: Extremities without clubbing, cyanosis, or edema. No obvious deformities. NEUROLOGICAL: Awake and alert. Decreased left-sided facial sensation, decreased left shoulder shrug, decreased leftward head rotation, otherwise CN II through XII intact. 2/5 in left arm and leg. 5/5 in right arm and leg. PSYCHIATRIC: Appropriate mood and affect; insight and judgment normal. <Aaron Mason - 08/28/18 21:53> Results - Labs Result diagrams: 08/29/18 14:24 08/29/18 14:24 <Rodrick Cain - 08/29/18 15:36> Abnormal lab results 08/28/18 08/28/18 08/28/18 Range/Units 17:00 17:00 17:00 WBC 13.5 H (4.0-11.0) th/mm3 RBC 4.27 L (4.50-5.90) mil/mm3 Hgb 11.8 L (13.0-17.0) gm/dL POC Hgb (Calc) 11.9 L (13.0-17.0) g/dL Hct 35.1 L (39.0-51.0) % POC Hct 35.0 L (39-51.0) % MPV (7.0-11.0) fL Neut % (Auto) (16.0-70.0) % Lymph % (Auto) (9.0-44.0) % [place] % (Auto) 9.6 H (0.0-8.0) % Neut # (Auto) 9.2 H (1.8-7.7) th/mm3 Lymph # (Auto) (1.0-4.8) th/mm3 [place] # (Auto) 1.3 H (0.0-0.9) th/mm3 APTT 17.8 L (23.4-31.7) sec POC Potassium 3.1 L (3.6-5.0) mmol/L Potassium 3.2 L (3.5-5.1) meq/L POC Chloride 101 L (102-111) mmol/L Estimated GFR 66 L (>89) mL/min POC Glucose 161 H (68-110) mg/dL Random Glucose 155 H (74-106) mg/dL Calcium (8.5-10.1) mg/dL AST (15-37) U/L Troponin I Less than 0.02 L (0.02-0.05) ng/mL Total Protein (6.4-8.2) g/dL Albumin (3.4-5.0) g/dL Triglycerides (42-150) mg/dL Cholesterol (120-200) mg/dL LDL Cholesterol, Calc (0-99) mg/dL HDL Cholesterol (40.0-60.0) mg/dL Ur Specific [place] (1.002-1.035) Urine Mucus (Occasional) /lpf 08/28/18 08/28/18 08/28/18 Range/Units 17:00 17:59 20:25 WBC (4.0-11.0) th/mm3 RBC (4.50-5.90) mil/mm3 Hgb (13.0-17.0) gm/dL POC Hgb (Calc) (13.0-17.0) g/dL Hct (39.0-51.0) % POC Hct (39-51.0) % MPV (7.0-11.0) fL Neut % (Auto) (16.0-70.0) % Lymph % (Auto) (9.0-44.0) % [place] % (Auto) (0.0-8.0) % Neut # (Auto) (1.8-7.7) th/mm3 Lymph # (Auto) (1.0-4.8) th/mm3 [place] # (Auto) (0.0-0.9) th/mm3 APTT (23.4-31.7) sec POC Potassium (3.6-5.0) mmol/L Potassium (3.5-5.1) meq/L POC Chloride (102-111) mmol/L Estimated GFR (>89) mL/min POC Glucose 142 H (68-110) mg/dL Random Glucose (74-106) mg/dL Calcium (8.5-10.1) mg/dL AST (15-37) U/L Troponin I (0.02-0.05) ng/mL Total Protein (6.4-8.2) g/dL Albumin (3.4-5.0) g/dL Triglycerides 172 H (42-150) mg/dL Cholesterol 205 H (120-200) mg/dL LDL Cholesterol, Calc 109 H (0-99) mg/dL HDL Cholesterol 61.5 H (40.0-60.0) mg/dL Ur Specific [place] Greater than 1.060 H (1.002-1.035) Urine Mucus Few H (Occasional) /lpf 08/28/18 08/29/18 08/29/18 Range/Units 22:38 03:46 03:46 WBC (4.0-11.0) th/mm3 RBC 3.65 L (4.50-5.90) mil/mm3 Hgb 10.4 L 10.0 L (13.0-17.0) gm/dL POC Hgb (Calc) (13.0-17.0) g/dL Hct 31.6 L 30.6 L (39.0-51.0) % POC Hct (39-51.0) % MPV 6.9 L (7.0-11.0) fL Neut % (Auto) 71.7 H (16.0-70.0) % Lymph % (Auto) (9.0-44.0) % [place] % (Auto) 12.5 H (0.0-8.0) % Neut # (Auto) (1.8-7.7) th/mm3 Lymph # (Auto) (1.0-4.8) th/mm3 [place] # (Auto) (0.0-0.9) th/mm3 APTT (23.4-31.7) sec POC Potassium (3.6-5.0) mmol/L Potassium 2.7 L* (3.5-5.1) meq/L POC Chloride (102-111) mmol/L Estimated GFR 81 L (>89) mL/min POC Glucose (68-110) mg/dL Random Glucose 112 H (74-106) mg/dL Calcium 7.9 L (8.5-10.1) mg/dL AST 9 L (15-37) U/L Troponin I (0.02-0.05) ng/mL Total Protein 5.2 L (6.4-8.2) g/dL Albumin 2.7 L (3.4-5.0) g/dL Triglycerides (42-150) mg/dL Cholesterol (120-200) mg/dL LDL Cholesterol, Calc (0-99) mg/dL HDL Cholesterol (40.0-60.0) mg/dL Ur Specific [place] (1.002-1.035) Urine Mucus (Occasional) /lpf 08/29/18 08/29/18 08/29/18 Range/Units 08:17 14:24 14:24 WBC 12.1 H D (4.0-11.0) th/mm3 RBC 3.49 L (4.50-5.90) mil/mm3 Hgb 9.5 L (13.0-17.0) gm/dL POC Hgb (Calc) (13.0-17.0) g/dL Hct 29.7 L (39.0-51.0) % POC Hct (39-51.0) % MPV 6.6 L (7.0-11.0) fL Neut % (Auto) 96.4 H (16.0-70.0) % Lymph % (Auto) 2.2 L (9.0-44.0) % [place] % (Auto) (0.0-8.0) % Neut # (Auto) 11.6 H (1.8-7.7) th/mm3 Lymph # (Auto) 0.3 L (1.0-4.8) th/mm3 [place] # (Auto) (0.0-0.9) th/mm3 APTT (23.4-31.7) sec POC Potassium (3.6-5.0) mmol/L Potassium (3.5-5.1) meq/L POC Chloride (102-111) mmol/L Estimated GFR (>89) mL/min POC Glucose 141 H (68-110) mg/dL Random Glucose 196 H (74-106) mg/dL Calcium 7.3 L* (8.5-10.1) mg/dL AST (15-37) U/L Troponin I (0.02-0.05) ng/mL Total Protein (6.4-8.2) g/dL Albumin (3.4-5.0) g/dL Triglycerides (42-150) mg/dL Cholesterol (120-200) mg/dL LDL Cholesterol, Calc (0-99) mg/dL HDL Cholesterol (40.0-60.0) mg/dL Ur Specific [place] (1.002-1.035) Urine Mucus (Occasional) /lpf Short CBC 08/28/18 08/28/18 08/29/18 Range/Units 17:00 22:38 03:46 WBC 13.5 H 7.4 (4.0-11.0) th/mm3 Hgb 11.8 L 10.4 L 10.0 L (13.0-17.0) gm/dL Hct 35.1 L 31.6 L 30.6 L (39.0-51.0) % Plt Count 439 374 (150-450) th/mm3 08/29/18 Range/Units 14:24 WBC 12.1 H D (4.0-11.0) th/mm3 Hgb 9.5 L (13.0-17.0) gm/dL Hct 29.7 L (39.0-51.0) % Plt Count 351 (150-450) th/mm3 BMP 08/28/18 08/29/18 08/29/18 17:00 03:46 14:24 Sodium 141 141 141 Potassium 3.2 L 2.7 L* 4.1 D Chloride 104 105 107 Carbon Dioxide 22.5 28.1 25.6 BUN 15 14 13 Creatinine 1.12 0.94 0.68 Calcium 8.5 7.9 L 7.3 L* Cardiac Enzymes 08/28/18 Range/Units 17:00 Total Creatine Kinase 40 (39-308) U/L Troponin I Less than 0.02 L (0.02-0.05) ng/mL Liver Function 08/29/18 Range/Units 03:46 Total Bilirubin 0.3 (0.2-1.0) mg/dL AST 9 L (15-37) U/L ALT 17 (12-78) U/L Alkaline Phosphatase 64 (45-117) U/L Albumin 2.7 L (3.4-5.0) g/dL Urine 08/28/18 Range/Units 17:59 Urine Color Yellow (Yellw/Straw) Urine Clarity Clear (Clear) Urine pH 6.0 (5.0-8.5) Ur Specific [place] Greater than 1.060 H (1.002-1.035) Urine Protein Negative (Neg-Trace) mg/dL Urine Glucose (UA) Negative (Negative) mg/dL <Rodrick Cain - 08/29/18 15:36> Abnormal lab results 08/28/18 08/28/18 08/28/18 Range/Units 17:00 17:00 17:00 WBC 13.5 H (4.0-11.0) th/mm3 RBC 4.27 L (4.50-5.90) mil/mm3 Hgb 11.8 L (13.0-17.0) gm/dL POC Hgb (Calc) 11.9 L (13.0-17.0) g/dL Hct 35.1 L (39.0-51.0) % POC Hct 35.0 L (39-51.0) % [place] % (Auto) 9.6 H (0.0-8.0) % Neut # (Auto) 9.2 H (1.8-7.7) th/mm3 [place] # (Auto) 1.3 H (0.0-0.9) th/mm3 APTT 17.8 L (23.4-31.7) sec POC Potassium 3.1 L (3.6-5.0) mmol/L Potassium 3.2 L (3.5-5.1) meq/L POC Chloride 101 L (102-111) mmol/L Estimated GFR 66 L (>89) mL/min POC Glucose 161 H (68-110) mg/dL Random Glucose 155 H (74-106) mg/dL Troponin I Less than 0.02 L (0.02-0.05) ng/mL Short CBC 08/28/18 Range/Units 17:00 WBC 13.5 H (4.0-11.0) th/mm3 Hgb 11.8 L (13.0-17.0) gm/dL Hct 35.1 L (39.0-51.0) % Plt Count 439 (150-450) th/mm3 BMP 08/28/18 17:00 Sodium 141 Potassium 3.2 L Chloride 104 Carbon Dioxide 22.5 BUN 15 Creatinine 1.12 Calcium 8.5 Cardiac Enzymes 08/28/18 Range/Units 17:00 Total Creatine Kinase 40 (39-308) U/L Troponin I Less than 0.02 L (0.02-0.05) ng/mL <Aaorn Mason - 08/28/18 17:57> - Imaging Impressions Head MRI 08/28/18 00:00 CONCLUSION: 1. No acute intracranial abnormality is identified. There are no findings to indicate recent ischemia. 2. Chronic changes include mild generalized atrophy and mild periventricular and subcortical white matter signal change characteristic of chronic microvascular ischemia. Chest X-Ray 08/28/18 17:00 CONCLUSION: No acute abnormality is seen. Head CT 08/28/18 17:00 CONCLUSION: Negative noncontrast CT examination the head. Report was called by Dr. Llanos to Dr. Watts at 5:19 PM Head CTA 08/28/18 17:00 CONCLUSION: 1. No large vessel occlusion is identified. There is mild to moderate calcified atherosclerotic plaque in the intracranial aspect of the internal carotid arteries bilaterally without high-grade stenosis. 2. 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 These findings were telephoned to Dr. Shaikh on 08/28/2018 5:30 PM. Neck CTA 08/28/18 17:00 CONCLUSION: 1. Dense calcified plaque at the right carotid bulb region with a possible significant stenosis with decreased contrast in this region. The evaluation this area is limited secondary to the dense calcification and suspected motion blurring in this region likely from swallowing. One could consider further evaluating this region with a repeat CTA at some point versus an MRA. 2. Possible occlusion versus very diminished flow in the mid to upper aspect of the left vertebral artery. There is contrast seen within the proximal left vertebral artery and in the left vertebral artery at the C1 level. <Rodrick Cain - 08/29/18 15:36> Impressions Head CT 08/28/18 17:00 CONCLUSION: Negative noncontrast CT examination the head. Report was called by Dr. Llanos to Dr. Watts at 5:19 PM Head CTA 08/28/18 17:00 CONCLUSION: 1. No large vessel occlusion is identified. There is mild to moderate calcified atherosclerotic plaque in the intracranial aspect of the internal carotid arteries bilaterally without high-grade stenosis. 2. 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 These findings were telephoned to Dr. Shaikh on 08/28/2018 5:30 PM. <Aaron Mason - 08/28/18 17:57> Caprini VTE Risk Assessment Caprini VTE Risk Assessment: Moderate/High Risk (score >= 2) <Aaron Mason - 08/28/18 21:53> Caprini Risk Assessment Model: Point Value = 1 Point Value = 2 Point Value = 3 Point Value = 5 Age 41-60 Minor surgery BMI > 25 kg/m2 Swollen legs Varicose veins or History of unexplained or recurrent spontaneous Oral contraceptives or hormone replacement Sepsis (< 1 month) Serious lung disease, including pneumonia (< 1 month) Abnormal pulmonary function Acute myocardial infarction Congestive heart failure (< 1 month) History of inflammatory bowel disease Medical patient at bed rest Age 61-74 Arthroscopic surgery Major open surgery (> 45 min) Laparoscopic surgery (> 45 min) Malignancy Confined to bed (> 72 hours) Immobilizing plaster cast Central venous access Age >= 75 History of VTE Family history of VTE Factor V Leiden Prothrombin [id number] Lupus anticoagulant Anticardiolipin antibodies Elevated serum homocysteine Heparin-induced thrombocytopenia Other congenital or acquired thrombophilia Stroke (< 1 month) Elective arthroplasty Hip, pelvis, or leg fracture Acute spinal cord injury (< 1 month) <Rodrick Cain - 08/29/18 15:36> Point Value = 1 Point Value = 2 Point Value = 3 Point Value = 5 Age 41-60 Minor surgery BMI > 25 kg/m2 Swollen legs Varicose veins or History of unexplained or recurrent spontaneous Oral contraceptives or hormone replacement Sepsis (< 1 month) Serious lung disease, including pneumonia (< 1 month) Abnormal pulmonary function Acute myocardial infarction Congestive heart failure (< 1 month) History of inflammatory bowel disease Medical patient at bed rest Age 61-74 Arthroscopic surgery Major open surgery (> 45 min) Laparoscopic surgery (> 45 min) Malignancy Confined to bed (> 72 hours) Immobilizing plaster cast Central venous access Age >= 75 History of VTE Family history of VTE Factor V Leiden Prothrombin [id number] Lupus anticoagulant Anticardiolipin antibodies Elevated serum homocysteine Heparin-induced thrombocytopenia Other congenital or acquired thrombophilia Stroke (< 1 month) Elective arthroplasty Hip, pelvis, or leg fracture Acute spinal cord injury (< 1 month) <Aaron Mason - 08/28/18 21:53> Prophylaxis Regimen: Total Risk Factor Score Risk Level Prophylaxis Regimen 0-1 Low Early ambulation 2 Moderate Order ONE of the following: *Sequential Compression Device (SCD) *Heparin 5000 units SQ BID 3-4 Higher Order ONE of the following medications: *Heparin 5000 units SQ TID *Enoxaparin/Lovenox 40 mg SQ daily (WT < 150 kg, CrCl > 30 mL/min) *Enoxaparin/Lovenox 30 mg SQ daily (WT < 150 kg, CrCl > 10-29 mL/min) *Enoxaparin/Lovenox 30 mg SQ BID (WT < 150 kg, CrCl > 30 mL/min) AND/OR *Sequential Compression Device (SCD) 5 or more Highest Order ONE of the following medications: *Heparin 5000 units SQ TID (Preferred with Epidurals) *Enoxaparin/Lovenox 40 mg SQ daily (WT < 150 kg, CrCl > 30 mL/min) *Enoxaparin/Lovenox 30 mg SQ daily (WT < 150 kg, CrCl > 10-29 mL/min) *Enoxaparin/Lovenox 30 mg SQ BID (WT < 150 kg, CrCl > 30 mL/min) AND *Sequential Compression Device (SCD) <Rodrick Cain - 08/29/18 15:36> Total Risk Factor Score Risk Level Prophylaxis Regimen 0-1 Low Early ambulation 2 Moderate Order ONE of the following: *Sequential Compression Device (SCD) *Heparin 5000 units SQ BID 3-4 Higher Order ONE of the following medications: *Heparin 5000 units SQ TID *Enoxaparin/Lovenox 40 mg SQ daily (WT < 150 kg, CrCl > 30 mL/min) *Enoxaparin/Lovenox 30 mg SQ daily (WT < 150 kg, CrCl > 10-29 mL/min) *Enoxaparin/Lovenox 30 mg SQ BID (WT < 150 kg, CrCl > 30 mL/min) AND/OR *Sequential Compression Device (SCD) 5 or more Highest Order ONE of the following medications: *Heparin 5000 units SQ TID (Preferred with Epidurals) *Enoxaparin/Lovenox 40 mg SQ daily (WT < 150 kg, CrCl > 30 mL/min) *Enoxaparin/Lovenox 30 mg SQ daily (WT < 150 kg, CrCl > 10-29 mL/min) *Enoxaparin/Lovenox 30 mg SQ BID (WT < 150 kg, CrCl > 30 mL/min) AND *Sequential Compression Device (SCD) <Aaron Mason - 08/28/18 17:57> Assessment and Plan - Assessment (1) CVA (cerebral vascular accident) Code(s): I63.9 - Cerebral infarction, unspecified Status: Acute Plan: Patient with a likely right hemisphere stroke. No TPA at this time due to GI bleed. History of Crohn's. Dense calcified plaque at right carotid bulb region with significant stenosis. -Aspirin 325 mg daily -Permissive hypertension up to 210/110 -Follow-up echocardiogram, lipid panel, A1c -Follow-up vascular surgery recommendations -Speech eval for speech and swallow -Pt eval and treat (2) GI bleed Code(s): K92.2 - Gastrointestinal hemorrhage, unspecified Status: Acute Plan: History of Crohn's disease. On sulfasalazine. Hemoccult positive. -Hemoglobin 11.8 on admission -Follow-up H&H -Consult GI, appreciate recommendations (3) Diabetes Code(s): E11.9 - Type 2 diabetes mellitus without complications Status: Acute Plan: History of diabetes. Recently started metformin. -Low-dose sliding scale (4) HTN (hypertension) Code(s): I10 - Essential (primary) hypertension Status: Acute Plan: History of hypertension. -Hold home medications, permissive HTN for now (5) Hypokalemia Code(s): E87.6 - Hypokalemia Status: Acute Plan: potassium 3.2 on admission -Monitor and replete as needed <Aaron Mason - 08/28/18 22:08> (1) Right hemisphere, cerebral infarction Code(s): I63.9 - Cerebral infarction, unspecified Status: Acute (2) Symptomatic stenosis of right carotid artery Code(s): I65.21 - Occlusion and stenosis of right carotid artery Status: Acute (3) GI bleed Code(s): K92.2 - Gastrointestinal hemorrhage, unspecified Status: Acute (4) Crohns disease Code(s): K50.90 - Crohn's disease, unspecified, without complications Status: Acute (5) Diabetes Code(s): E11.9 - Type 2 diabetes mellitus without complications Status: Acute (6) HTN (hypertension) Code(s): I10 - Essential (primary) hypertension Status: Acute (7) Hypokalemia Code(s): E87.6 - Hypokalemia Status: Acute <Rodrick Cain - 08/29/18 15:36> - Attending Attestation See the residents documentation for details. I saw and evaluated the patient regarding the lilly portions of this evaluation and agree with the residents findings and plans as written. Parts of this note were created using [employer] voice recognition software program. While efforts were made to correct any mistakes made by this software, some mistakes, errors, and omissions may remain in the final note that were not caught when the note was originally created. Plan of care was discussed and agreed upon with the patient as specifically documented in the above note. An opportunity to ask questions with explanation was provided. Patient voiced understanding on all information reviewed and discussed. <Rodrick Cain - 08/29/18 15:36>
[2018-08-28] MEDS ORDERED: Dextrose 50% in Water 50 ML Vial IV.PUSH PRN (18:39)
[2018-08-28 18:41] LABS: Bilirubin,Urine Negative (Negative); Clarity,Urine Clear (Clear); Color,Urine Yellow (Yellw/Straw); Glucose,Urine (UA) Negative (Negative); Leukocyte Esterase,Urine Negative (Negative); Mucus,Urine Few /lpf (Occasional); Nitrite,Urine Negative (Negative)
[2018-08-28 18:43] LABS: Amphetamine Screen,Urine Neg (Neg); Barbiturate Screen,Urine Neg (Neg); Cannabinoid Screen,Urine Neg (Neg); Cocaine Screen,Urine Neg (Neg)
--- NOTE | 2018-08-28 18:45 | MB ---
cc: Mamadou Shaikh MD, PhD DATE: 08/28/2018 REASON FOR CONSULTATION: Stroke alert. HISTORY OF PRESENT ILLNESS: Mr. Winston is a 62-year-old man who reports sudden onset of weakness involving the left arm and left leg about 4 p.m. today. He presented to the hospital as a stroke alert, has persistent weakness. Denies any speech difficulties or headaches. PAST MEDICAL HISTORY: 1. Remarkable for Crohn's disease. 2. He had a history of GI bleed 6 months ago. 3. He has history of anemia, receives iron infusions periodically. 4. Hypertension. 5. Hyperlipidemia. NEUROLOGIC EXAMINATION: VITAL SIGNS: Blood pressure was hypertensive when he came in. He is now on Cardene with blood pressure of 180/85. HIGHER CORTICAL FUNCTIONS: Are normal. Cranial nerves intact. MOTOR EXAM: He is weak in the left arm, rated at about 3/5. Left leg is 3/5 as well. He has normal strength on the right. Reflexes are symmetric. IMAGING STUDIES: CT of the brain is normal. CTA brain, no evidence of any large vessel occlusion. CT of the neck reveals a significant stenosis in the right carotid artery. LABORATORY DATA: Stool guaiac is grossly positive. White count 13,500, hemoglobin 9.8, hematocrit 35%, platelets 439,000. Sodium is 139, potassium 3.1, chloride 101, BUN is 14, creatinine is 1, glucose 161. IMPRESSION: Right hemisphere stroke. The patient is not a candidate for IV tPA because of the grossly guaiac positive stools, history of Crohn's disease and gastrointestinal hemorrhage 6 months ago. The concern would be increased risk of hemorrhage complication from tPA. He does not have a large vessel occlusion for intervention. RECOMMENDATION: Would continue aspirin 325 mg daily. We will allow permissive hypertension, up to 210/110. We will check echocardiogram, lipid panel. Also vascular surgery consult regarding the right carotid stenosis. Mamadou Shaikh MD, PhD DEILCIA/ilda , 05:37 PM , 05:43 PM
[2018-08-28 18:46] LABS: Opiate Screen,Urine Neg (Neg)
[2018-08-28] MEDS ORDERED: Gadobutrol PF 7.5 MMOL/7.5 ML Vial (for RAD) IV.SIG ONE (19:05)
[2018-08-28 19:13] LABS: Chol/HDL Ratio 3.33 Ratio; HDL Cholesterol 61.5 mg/dL (40.0-60.0)
--- NOTE | 2018-08-28 19:15 | MR ---
EXAM DATE: 08/28/2018 7:09 PM EST AGE/SEX: 62 years / Male INDICATIONS: Left sided weakness. CLINICAL DATA: This is the patient's initial encounter. Patient reports that signs and symptoms have been present for 1 day and indicates a pain score of 0/10. MEDICAL/SURGICAL HISTORY: Diabetes mellitus type II. Hypertension. Skin CA. Coronary artery s tent. Skin CA removal. COMPARISON: No prior exams available for comparison. TECHNIQUE: Multiplanar, multisequence examination of the brain was performed without and with 7 ml Ga davist (gadobutrol) contrast as a single exam dose. FINDINGS: Cerebrum: There is mild generalized atrophy with ventricular size within normal limits given the degr ee of atrophy. No midline shift, mass lesion, hemorrhage or acute infarction. No extraaxial fluid c ollections are seen. The pituitary gland and suprasellar cistern are normal in configuration. White Matter: There is mild periventricular and subcortical white matter signal change. Posterior Fossa: The cerebellum and brainstem demonstrate no acute abnormality. The 4th ventricle is midline. The cerebellopontine angle is within normal limits. The cerebellar tonsils are normal in p osition. Diffusion Imaging: No areas of restricted diffusion are seen. Extracranial: There is mucoperiosteal thickening within the right sphenoid sinus. Post contrast: No abnormal areas of contrast enhancement are identified. CONCLUSION: 1. No acute intracranial abnormality is identified. There are no findings to indicate recent ischemi a. 2. Chronic changes include mild generalized atrophy and mild periventricular and subcortical white m atter signal change characteristic of chronic microvascular ischemia. Electronically signed by: Peter Dobbs MD 08/28/2018 7:14 PM EST
[2018-08-28] MEDS: Insulin NovoLOG Aspart Correctional Sugar Inj SQ SCH (20:27)
[2018-08-28 23:08] LABS: Hematocrit 31.6 % (39.0-51.0); Hemoglobin 10.4 gm/dL (13.0-17.0)
[2018-08-28] MEDS: sulfaSALAzine 500 MG Tablet PO SCH (23:56)
[2018-08-29 04:52] LABS: Baso % (Auto) 0.6 % (0.0-2.0); Eos # (Auto) 0.1 th/mm3 (0.0-0.4); Eos % (Auto) 0.8 % (0.0-4.0); Hematocrit 30.6 % (39.0-51.0); Lymph # (Auto) 1.1 th/mm3 (1.0-4.8); Lymph % (Auto) 14.4 % (9.0-44.0); Mean Corpuscular HGB Conc 32.5 % (32.0-36.0); Mean Corpuscular Hemoglobin 27.3 pg (27.0-34.0); Mean Corpuscular Volume 83.9 fL (80.0-100.0); Mean Platelet Volume 6.9 fL (7.0-11.0); Mono # (Auto) 0.9 th/mm3 (0.0-0.9); Mono % (Auto) 12.5 % (0.0-8.0); Neut # (Auto) 5.3 th/mm3 (1.8-7.7); Neut % (Auto) 71.7 % (16.0-70.0); Platelet Count 374 th/mm3 (150-450); Red Blood Count 3.65 mil/mm3 (4.50-5.90); Red Cell Distribution Width 16.7 % (11.6-17.2); White Blood Count 7.4 th/mm3 (4.0-11.0)
[2018-08-29 05:14] LABS: Alanine Aminotransferase 17 U/L (12-78); Albumin 2.7 g/dL (3.4-5.0); Alkaline Phosphatase 64 U/L (45-117); Anion Gap 8 meq/L (5-15); Aspartate Aminotransferase 9 U/L (15-37); Blood Urea Nitrogen 14 mg/dL (7-18); Calcium 7.9 mg/dL (8.5-10.1); Carbon Dioxide 28.1 meq/L (21.0-32.0); Chloride 105 meq/L (98-107); Glomerular Filtration Rate 81 mL/min (>89); Glucose,Random 112 mg/dL (74-106); Magnesium 1.7 mg/dL (1.5-2.5); Sodium 141 meq/L (136-145); Total Protein 5.2 g/dL (6.4-8.2)
[2018-08-29 05:17] LABS: Potassium 2.7 meq/L (3.5-5.1)
[2018-08-29] MEDS ORDERED: Acetaminophen 325 MG Tablet PO ONE (05:41)
[2018-08-29] MEDS: sulfaSALAzine 500 MG Tablet PO SCH ×4 (06:11→23:35)
--- NOTE | 2018-08-29 07:41 | P.CONVS ---
History of Present Illness Service: Vascular surgery Consult date: 08/29/18 Primary Care Provider: Geoff Byrd DO History of Present Illness: 62-year-old male with a past medical history of coronary artery disease status post stent x3 placed approximately 2 years ago. Patient presents with a right hemispheric stroke manifested as left side weakness. He denies any chest pain or shortness of breath. He saw a title investigator approximately 2 years ago and his echo and stress test were negative. Review of Systems All other systems reviewed negative except as stated in HPI [facility] - History History Provided By: Patient - Medical History Medical History: Medical History (Last Updated 08/28/18 @ 17:42 by Peter Camacho) Acute Crohn's disease CAD (coronary artery disease) CHF (congestive heart failure) Skin cancer (melanoma) - Tobacco History Second Hand Smoke Exposure: No Tobacco Use In Past 30 Days: No Smoking Status: Never smoker - Alcohol History How Often Do You Have a Drink Containing Alcohol: Never - Substance Use History Substance History: No History of Abuse - Travel History Recent Travel in the [place] Within the Last 8 Weeks: No Recent Travel Out of the Country Within the Last 8 Weeks: No - Immunization History Tetanus Immunization: <5 Years Hx Influenza Vaccine This Season: No Medications and Allergies Active Medications: Active Medications Aspirin (Ecotrin) 325 mg PO DAILY [facility] Last Admin: 08/28/18 18:34 Dose: 325 mg Dextrose (D50w Vial) 50 ml IV.PUSH UNSCH PRN PRN Reason: PER HYPOGLYCEMIA PROTOCOL Glucagon (Glucagon Inj) 1 mg OTHER UNSCH PRN PRN Reason: for Hypoglycemia Protocol Nicardipine HCl 25 mg/ Sodium (Chloride) 250 mls @ 50 mls/hr IV.CONT TITRATE PRN; Protocol PRN Reason: Per Protocol Insulin Aspart (Novolog Insulin Correctional Sugar Inj) 0 unit SQ ACHS JULIANNA; Protocol Last Admin: 08/28/18 20:27 Dose: Not Given Labetalol HCl (Trandate Inj) 5 mg IV.PUSH Q4H PRN PRN Reason: BP 210/110 Pravastatin Sodium (Pravachol) 40 mg PO DAILY [facility] Sulfasalazine (Azulfidine) 500 mg PO Q6HR [facility] Last Admin: 08/29/18 06:11 Dose: 500 mg Allergies Allergy/AdvReac Type Severity Reaction Status Date / Time adhesive Allergy Severe TAPE = Verified 06/20/17 15:33 RASH & WELTS penicillin G Allergy Severe Rash Verified 06/20/17 15:33 Home Medications Medication Instructions Recorded Confirmed Type aspirin 325 mg PO DAILY 08/28/18 08/28/18 History enalapril maleate 20 mg PO DAILY 08/28/18 08/28/18 History hydrochlorothiazide 25 mg PO DAILY 08/28/18 08/28/18 History isosorbide mononitrate 30 mg PO DAILY 08/28/18 08/28/18 History metoprolol tartrate 100 mg PO BID 08/28/18 08/28/18 History nitroglycerin 0.4 mg SUBLINGUAL Q5-15M PRN 08/28/18 08/28/18 History prednisone 10 mg PO DAILY 08/28/18 08/28/18 History prednisone 10 mg PO DAILY 08/28/18 08/28/18 History ranitidine HCl 300 mg PO DAILY 08/28/18 08/28/18 History simvastatin 20 mg PO QPM 08/28/18 08/28/18 History sulfasalazine 0.5 g PO Q6H 08/28/18 08/28/18 History Physical Exam Vital Signs / I&O: Vital Signs 08/28/18 17:38 08/28/18 17:45 08/28/18 17:53 Temperature 98.5 F 98.3 F Pulse Rate 104 H 96 H Respiratory Rate 18 18 Blood Pressure 176/99 H 174/99 H Pulse Oximetry 91 L 94 L 93 L 08/28/18 18:46 08/28/18 19:45 08/28/18 21:00 Temperature 97.9 F Pulse Rate 73 87 78 Respiratory Rate 18 18 22 Blood Pressure 186/98 H 188/100 H 188/99 H Pulse Oximetry 94 L 97 08/29/18 00:00 08/29/18 04:00 Temperature 98.3 F 98.4 F Pulse Rate 72 72 Respiratory Rate 20 22 Blood Pressure 171/92 H 163/91 H Pulse Oximetry 98 100 Intake & Output 08/28/18 08/29/18 08/29/18 18:59 06:59 18:59 Intake Total 100 / 100 Output Total 550 / 550 Balance -450 / -450 Weight 74.5 kg 74 kg Intake: Oral 100 / 100 Output: Urine 550 / 550 Other: Date of Last Bowel Movement 08/28/18 Weight On Admission 74 kg Neuro: Left upper extremity, left lower extremity weakness with 3 out of 5 motor function HEENT: Normocephalic Neck: Supple Heart: S1-S2 Lungs: Clear to auscultation Abdomen: Soft nontender Vascular: Palpable femoral pulses Laboratory Results - last 24 hr 08/28/18 08/28/18 08/28/18 17:00 17:00 17:00 WBC 13.5 H RBC 4.27 L Hgb 11.8 L POC Hgb (Calc) 11.9 L Hct 35.1 L POC Hct 35.0 L MCV 82.1 MCH 27.5 MCHC 33.5 RDW 16.7 Plt Count 439 MPV 7.7 Neut % (Auto) 68.2 Lymph % (Auto) 21.5 [place] % (Auto) 9.6 H Eos % (Auto) 0.1 Baso % (Auto) 0.6 Neut # (Auto) 9.2 H Lymph # (Auto) 2.9 [place] # (Auto) 1.3 H Eos # (Auto) 0.0 Baso # (Auto) 0.1 WBC Differential . Differential Comment Auto diff final PT 10.0 INR 1.0 APTT 17.8 L POC Sodium 139 Sodium 141 POC Potassium 3.1 L Potassium 3.2 L POC Chloride 101 L Chloride 104 Carbon Dioxide 22.5 Anion Gap 15 POC BUN 14 BUN 15 Creatinine 1.12 POC Creatinine 1.0 Estimated GFR 66 L POC Glucose 161 H Random Glucose 155 H Calcium 8.5 Magnesium Total Bilirubin AST ALT Alkaline Phosphatase Total Creatine Kinase 40 Troponin I Less than 0.02 L B-Natriuretic Peptide Total Protein Albumin Triglycerides Cholesterol LDL Cholesterol, Calc HDL Cholesterol Cholesterol/HDL Ratio Urine Color Urine Clarity Urine pH Ur Specific [place] Urine Protein Urine Glucose (UA) Urine Ketones Urine Occult Blood Urine Nitrate Urine Bilirubin Urine Urobilinogen Ur Leukocyte Esterase Urine RBC Urine WBC Urine Mucus Micro UA Comment Ur Microscopic Review Urine Culture Comments Urine Opiates Screen Ur Barbiturates Screen Ur Amphetamines Screen U Benzodiazepines Scrn Urine Cocaine Screen U Cannabinoids Screen Blood Type Antibody Screen 08/28/18 08/28/18 08/28/18 17:00 17:00 17:59 WBC RBC Hgb POC Hgb (Calc) Hct POC Hct MCV MCH MCHC RDW Plt Count MPV Neut % (Auto) Lymph % (Auto) [place] % (Auto) Eos % (Auto) Baso % (Auto) Neut # (Auto) Lymph # (Auto) [place] # (Auto) Eos # (Auto) Baso # (Auto) WBC Differential Differential Comment PT INR APTT POC Sodium Sodium POC Potassium Potassium POC Chloride Chloride Carbon Dioxide Anion Gap POC BUN BUN Creatinine POC Creatinine Estimated GFR POC Glucose Random Glucose Calcium Magnesium Total Bilirubin AST ALT Alkaline Phosphatase Total Creatine Kinase Troponin I B-Natriuretic Peptide 41 Total Protein Albumin Triglycerides 172 H Cholesterol 205 H LDL Cholesterol, Calc 109 H HDL Cholesterol 61.5 H Cholesterol/HDL Ratio 3.33 Urine Color Urine Clarity Urine pH Ur Specific [place] Urine Protein Urine Glucose (UA) Urine Ketones Urine Occult Blood Urine Nitrate Urine Bilirubin Urine Urobilinogen Ur Leukocyte Esterase Urine RBC Urine WBC Urine Mucus Micro UA Comment Ur Microscopic Review Urine Culture Comments Urine Opiates Screen Neg Ur Barbiturates Screen Neg Ur Amphetamines Screen Neg U Benzodiazepines Scrn Neg Urine Cocaine Screen Neg U Cannabinoids Screen Neg Blood Type Antibody Screen 08/28/18 08/28/18 08/28/18 17:59 19:31 20:25 WBC RBC Hgb POC Hgb (Calc) Hct POC Hct MCV MCH MCHC RDW Plt Count MPV Neut % (Auto) Lymph % (Auto) [place] % (Auto) Eos % (Auto) Baso % (Auto) Neut # (Auto) Lymph # (Auto) [place] # (Auto) Eos # (Auto) Baso # (Auto) WBC Differential Differential Comment PT INR APTT POC Sodium Sodium POC Potassium Potassium POC Chloride Chloride Carbon Dioxide Anion Gap POC BUN BUN Creatinine POC Creatinine Estimated GFR POC Glucose 142 H Random Glucose Calcium Magnesium Total Bilirubin AST ALT Alkaline Phosphatase Total Creatine Kinase Troponin I B-Natriuretic Peptide Total Protein Albumin Triglycerides Cholesterol LDL Cholesterol, Calc HDL Cholesterol Cholesterol/HDL Ratio Urine Color Yellow Urine Clarity Clear Urine pH 6.0 Ur Specific [place] Greater than 1.060 H Urine Protein Negative Urine Glucose (UA) Negative Urine Ketones 20 Urine Occult Blood Negative Urine Nitrate Negative Urine Bilirubin Negative Urine Urobilinogen Less than 2 Ur Leukocyte Esterase Negative Urine RBC Less than 1 Urine WBC Less than 1 Urine Mucus Few H Micro UA Comment Cath-culture not ind Ur Microscopic Review Not Reportable Urine Culture Comments Cath-cult not ind Urine Opiates Screen Ur Barbiturates Screen Ur Amphetamines Screen U Benzodiazepines Scrn Urine Cocaine Screen U Cannabinoids Screen Blood Type B Positive Antibody Screen Negative 08/28/18 08/29/18 08/29/18 22:38 03:46 03:46 WBC 7.4 RBC 3.65 L Hgb 10.4 L 10.0 L POC Hgb (Calc) Hct 31.6 L 30.6 L POC Hct MCV 83.9 MCH 27.3 MCHC 32.5 RDW 16.7 Plt Count 374 MPV 6.9 L Neut % (Auto) 71.7 H Lymph % (Auto) 14.4 [place] % (Auto) 12.5 H Eos % (Auto) 0.8 Baso % (Auto) 0.6 Neut # (Auto) 5.3 Lymph # (Auto) 1.1 [place] # (Auto) 0.9 Eos # (Auto) 0.1 Baso # (Auto) 0.0 WBC Differential . Differential Comment Auto diff final PT INR APTT POC Sodium Sodium 141 POC Potassium Potassium 2.7 L* POC Chloride Chloride 105 Carbon Dioxide 28.1 Anion Gap 8 POC BUN BUN 14 Creatinine 0.94 POC Creatinine Estimated GFR 81 L POC Glucose Random Glucose 112 H Calcium 7.9 L Magnesium 1.7 Total Bilirubin 0.3 AST 9 L ALT 17 Alkaline Phosphatase 64 Total Creatine Kinase Troponin I B-Natriuretic Peptide Total Protein 5.2 L Albumin 2.7 L Triglycerides Cholesterol LDL Cholesterol, Calc HDL Cholesterol Cholesterol/HDL Ratio Urine Color Urine Clarity Urine pH Ur Specific [place] Urine Protein Urine Glucose (UA) Urine Ketones Urine Occult Blood Urine Nitrate Urine Bilirubin Urine Urobilinogen Ur Leukocyte Esterase Urine RBC Urine WBC Urine Mucus Micro UA Comment Ur Microscopic Review Urine Culture Comments Urine Opiates Screen Ur Barbiturates Screen Ur Amphetamines Screen U Benzodiazepines Scrn Urine Cocaine Screen U Cannabinoids Screen Blood Type Antibody Screen Impressions Head MRI 08/28/18 00:00 CONCLUSION: 1. No acute intracranial abnormality is identified. There are no findings to indicate recent ischemia. 2. Chronic changes include mild generalized atrophy and mild periventricular and subcortical white matter signal change characteristic of chronic microvascular ischemia. Chest X-Ray 08/28/18 17:00 CONCLUSION: No acute abnormality is seen. Head CT 08/28/18 17:00 CONCLUSION: Negative noncontrast CT examination the head. Report was called by Dr. Llanos to Dr. Watts at 5:19 PM Head CTA 08/28/18 17:00 CONCLUSION: 1. No large vessel occlusion is identified. There is mild to moderate calcified atherosclerotic plaque in the intracranial aspect of the internal carotid arteries bilaterally without high-grade stenosis. 2. 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 These findings were telephoned to Dr. Shaikh on 08/28/2018 5:30 PM. Neck CTA 08/28/18 17:00 CONCLUSION: 1. Dense calcified plaque at the right carotid bulb region with a possible significant stenosis with decreased contrast in this region. The evaluation this area is limited secondary to the dense calcification and suspected motion blurring in this region likely from swallowing. One could consider further evaluating this region with a repeat CTA at some point versus an MRA. 2. Possible occlusion versus very diminished flow in the mid to upper aspect of the left vertebral artery. There is contrast seen within the proximal left vertebral artery and in the left vertebral artery at the C1 level. Assessment and Plan - Assessment (1) Symptomatic stenosis of right carotid artery Code(s): I65.21 - Occlusion and stenosis of right carotid artery Status: Acute (2) CVA (cerebral vascular accident) Code(s): I63.9 - Cerebral infarction, unspecified Status: Acute - Plan CT of the neck, MRI of the head were reviewed. Severe right carotid stenosis, no identifiable acute stroke. Patient is currently on past medical management with statin therapy and antiplatelet therapy. right carotid artery endarterectomy today. Benefits risks and alternatives were explained to the patient including perioperative stroke, bleeding, infection, cranial nerve injury, preoperative myocardial infarction and he agrees to the procedure. Thank you for allowing us to dissipate in this patient care. If you have any questions please do not hesitate to call my cell phone. Aaron Zarate MD [facility] [phone]
[2018-08-29] MEDS: Insulin NovoLOG Aspart Correctional Sugar Inj SQ SCH ×3 (09:22→23:37)
[2018-08-29] MEDS ORDERED: Heparin 10,000 UNITS/10 ML Vial (for IV use) ONE (09:36)
[2018-08-29] MEDS ORDERED: Protamine Sulfate Inj 50 MG/5 ML Vial ONE (09:36)
[2018-08-29] MEDS ORDERED: Heparin/NS PF Inj 500 ML ONE (09:37)
[2018-08-29] MEDS ORDERED: Thrombin Topical 20,000 UNIT Spray Kit TOPICAL ONE (09:37)
[2018-08-29] MEDS ORDERED: Gelatin Size 100 Topical Foam ONE (09:41)
[2018-08-29] MEDS ORDERED: Nitroglycerin Drip Premix 50 MG/250 ML BOTTLE ONE (09:48)
--- NOTE | 2018-08-29 11:00 | P.CONGI ---
History of Present Illness Consult date: 08/29/18 Consult reason: History of Crohn's Guaiac positive stools Chief complaint: Acute ischemic CVA History of Present Illness: 62-year-old patient with past medical history significant for hypertension, diabetes, Crohn's disease and GERD. Surgical history significant for 3 previous cardiac stents and removal of jaw cancer. Patient presented to [facility] emergency room last evening with complaint of left-sided weakness and right-sided vision loss. CT of the head showed mild to moderate bilateral stenosis of the internal carotid arteries. Patient is awake and alert , scheduled for right carotid endarterectomy today. Patient continues to experience mild left-sided weakness but states improving. Upon arrival to [facility], patient stools were found to be guaiac positive. Our service has been consulted to evaluate patient for guaiac positive stools , history of Crohn's disease. Upon consultation, patient denies any noted bleeding of bright red blood or dark stools. He does endorse taking aspirin 325 mg p.o. twice daily for the last 8-10 years. Patient states history of VT x3 with stent placement. Patient also endorses history of GERD for which he takes Zantac 150 mg p.o. twice daily. Patient denies any symptoms of acid reflux, heartburn or difficulty swallowing. Patient denies any painful swallowing or unintentional weight loss. States last EGD done in 2017, to his recollection did not reveal ulceration or inflammation. Patient states last colonoscopy done in 2017 revealed "unchanged" Crohn's disease. Patient denies any recollection of polyps. States he has a normal BM brown in color daily without any noted bleeding. Denies any constipation or diarrhea. Denies change in bowel habits. Patient states family history significant for his father having ulcerative colitis. Patient denies any use of EtOH or tobacco products. Review of Systems All other systems reviewed negative except as stated in HPI PMFSH - History History Provided By: Patient - Medical History Medical History: Medical History (Last Reviewed 08/29/18 @ 08:35 by Nicolette Alvarez) Acute Crohn's disease CAD (coronary artery disease) CHF (congestive heart failure) Skin cancer (melanoma) - Tobacco History Second Hand Smoke Exposure: No Tobacco Use In Past 30 Days: No Smoking Status: Never smoker - Alcohol History How Often Do You Have a Drink Containing Alcohol: Never - Substance Use History Substance History: No History of Abuse - Travel History Recent Travel in the [place] Within the Last 8 Weeks: No Recent Travel Out of the Country Within the Last 8 Weeks: No - Immunization History Tetanus Immunization: <5 Years Hx Influenza Vaccine This Season: No Medications and Allergies Active Medications: Active Medications Aspirin (Ecotrin) 325 mg PO DAILY [facility] Last Admin: 08/29/18 09:22 Dose: Not Given Dextrose (D50w Vial) 50 ml IV.PUSH UNSCH PRN PRN Reason: PER HYPOGLYCEMIA PROTOCOL Glucagon (Glucagon Inj) 1 mg OTHER UNSCH PRN PRN Reason: for Hypoglycemia Protocol Nicardipine HCl 25 mg/ Sodium (Chloride) 250 mls @ 50 mls/hr IV.CONT TITRATE PRN; Protocol PRN Reason: Per Protocol Insulin Aspart (Novolog Insulin Correctional Sugar Inj) 0 unit SQ ACHS [facility]; Protocol Last Admin: 08/29/18 09:22 Dose: Not Given Labetalol HCl (Trandate Inj) 5 mg IV.PUSH Q4H PRN PRN Reason: BP 210/110 Pravastatin Sodium (Pravachol) 40 mg PO DAILY [facility] Last Admin: 08/29/18 09:23 Dose: 40 mg Sulfasalazine (Azulfidine) 500 mg PO Q6HR [facility] Last Admin: 08/29/18 06:11 Dose: 500 mg Allergies Allergy/AdvReac Type Severity Reaction Status Date / Time adhesive Allergy Severe TAPE = Verified 06/20/17 15:33 RASH & WELTS penicillin G Allergy Severe Rash Verified 06/20/17 15:33 Home Medications Medication Instructions Recorded Confirmed Type aspirin 325 mg PO DAILY 08/28/18 08/28/18 History enalapril maleate 20 mg PO DAILY 08/28/18 08/28/18 History hydrochlorothiazide 25 mg PO DAILY 08/28/18 08/28/18 History isosorbide mononitrate 30 mg PO DAILY 08/28/18 08/28/18 History metoprolol tartrate 100 mg PO BID 08/28/18 08/28/18 History nitroglycerin 0.4 mg SUBLINGUAL Q5-15M PRN 08/28/18 08/28/18 History prednisone 10 mg PO DAILY 08/28/18 08/28/18 History prednisone 10 mg PO DAILY 08/28/18 08/28/18 History ranitidine HCl 300 mg PO DAILY 08/28/18 08/28/18 History simvastatin 20 mg PO QPM 08/28/18 08/28/18 History sulfasalazine 0.5 g PO Q6H 08/28/18 08/28/18 History Exam Vital signs: Vital Signs 08/28/18 17:38 08/28/18 17:45 08/28/18 17:53 Temperature 98.5 F 98.3 F Pulse Rate 104 H 96 H Respiratory Rate 18 18 Blood Pressure 176/99 H 174/99 H Pulse Oximetry 91 L 94 L 93 L 08/28/18 18:46 08/28/18 19:45 08/28/18 21:00 Temperature 97.9 F Pulse Rate 73 87 78 Respiratory Rate 18 18 22 Blood Pressure 186/98 H 188/100 H 188/99 H Pulse Oximetry 94 L 97 08/29/18 00:00 08/29/18 04:00 08/29/18 08:00 Temperature 98.3 F 98.4 F 97.9 F Pulse Rate 72 72 72 Respiratory Rate 20 22 16 Blood Pressure 171/92 H 163/91 H 172/94 H Pulse Oximetry 98 100 100 08/29/18 09:38 Temperature Pulse Rate Respiratory Rate Blood Pressure Pulse Oximetry 98 Intake & Output 08/28/18 08/29/18 08/29/18 18:59 06:59 18:59 Intake Total 100 / 100 Output Total 550 / 550 Balance -450 / -450 Weight 74.5 kg 74 kg Intake: Oral 100 / 100 Output: Urine 550 / 550 Other: Date of Last Bowel Movement 08/28/18 08/28/18 Weight On Admission 74 kg - Constitutional no acute distress - Routine HEENT Exam Head: Present: normocephalic - Routine Respiratory Exam Present: CTA bilaterally. Absent: accessory muscle use - Routine Cardiovascular Exam Present: RRR, S1, S2 - Routine Abdominal Exam Present: soft, normoactive bowel sounds. Absent: tenderness, distended, guarding, firm - Routine Extremities Exam Present: pulses intact. Absent: edema - Routine Skin Exam Present: dry, warm. Absent: pallor - Routine Neurological Exam Present: alert, oriented X3, moving all extremities Left upper and lower extremity weakness as per patient. Improving movement - Routine Psychiatric Exam Present: normal affect, cooperative Results - Labs CBC & Chem 7: 08/29/18 03:46 08/29/18 03:46 Labs: Laboratory Results - last 24 hr 08/28/18 08/28/18 08/28/18 17:00 17:00 17:00 WBC 13.5 H RBC 4.27 L Hgb 11.8 L POC Hgb (Calc) 11.9 L Hct 35.1 L POC Hct 35.0 L MCV 82.1 MCH 27.5 MCHC 33.5 RDW 16.7 Plt Count 439 MPV 7.7 Neut % (Auto) 68.2 Lymph % (Auto) 21.5 [place] % (Auto) 9.6 H Eos % (Auto) 0.1 Baso % (Auto) 0.6 Neut # (Auto) 9.2 H Lymph # (Auto) 2.9 [place] # (Auto) 1.3 H Eos # (Auto) 0.0 Baso # (Auto) 0.1 WBC Differential . Differential Comment Auto diff final PT 10.0 INR 1.0 APTT 17.8 L POC Sodium 139 Sodium 141 POC Potassium 3.1 L Potassium 3.2 L POC Chloride 101 L Chloride 104 Carbon Dioxide 22.5 Anion Gap 15 POC BUN 14 BUN 15 Creatinine 1.12 POC Creatinine 1.0 Estimated GFR 66 L POC Glucose 161 H Random Glucose 155 H Calcium 8.5 Magnesium Total Bilirubin AST ALT Alkaline Phosphatase Total Creatine Kinase 40 Troponin I Less than 0.02 L B-Natriuretic Peptide Total Protein Albumin Triglycerides Cholesterol LDL Cholesterol, Calc HDL Cholesterol Cholesterol/HDL Ratio Urine Color Urine Clarity Urine pH Ur Specific [place] Urine Protein Urine Glucose (UA) Urine Ketones Urine Occult Blood Urine Nitrate Urine Bilirubin Urine Urobilinogen Ur Leukocyte Esterase Urine RBC Urine WBC Urine Mucus Micro UA Comment Ur Microscopic Review Urine Culture Comments Urine Opiates Screen Ur Barbiturates Screen Ur Amphetamines Screen U Benzodiazepines Scrn Urine Cocaine Screen U Cannabinoids Screen Blood Type Antibody Screen 08/28/18 08/28/18 08/28/18 17:00 17:00 17:59 WBC RBC Hgb POC Hgb (Calc) Hct POC Hct MCV MCH MCHC RDW Plt Count MPV Neut % (Auto) Lymph % (Auto) [place] % (Auto) Eos % (Auto) Baso % (Auto) Neut # (Auto) Lymph # (Auto) [place] # (Auto) Eos # (Auto) Baso # (Auto) WBC Differential Differential Comment PT INR APTT POC Sodium Sodium POC Potassium Potassium POC Chloride Chloride Carbon Dioxide Anion Gap POC BUN BUN Creatinine POC Creatinine Estimated GFR POC Glucose Random Glucose Calcium Magnesium Total Bilirubin AST ALT Alkaline Phosphatase Total Creatine Kinase Troponin I B-Natriuretic Peptide 41 Total Protein Albumin Triglycerides 172 H Cholesterol 205 H LDL Cholesterol, Calc 109 H HDL Cholesterol 61.5 H Cholesterol/HDL Ratio 3.33 Urine Color Urine Clarity Urine pH Ur Specific [place] Urine Protein Urine Glucose (UA) Urine Ketones Urine Occult Blood Urine Nitrate Urine Bilirubin Urine Urobilinogen Ur Leukocyte Esterase Urine RBC Urine WBC Urine Mucus Micro UA Comment Ur Microscopic Review Urine Culture Comments Urine Opiates Screen Neg Ur Barbiturates Screen Neg Ur Amphetamines Screen Neg U Benzodiazepines Scrn Neg Urine Cocaine Screen Neg U Cannabinoids Screen Neg Blood Type Antibody Screen 08/28/18 08/28/18 08/28/18 17:59 19:31 20:25 WBC RBC Hgb POC Hgb (Calc) Hct POC Hct MCV MCH MCHC RDW Plt Count MPV Neut % (Auto) Lymph % (Auto) [place] % (Auto) Eos % (Auto) Baso % (Auto) Neut # (Auto) Lymph # (Auto) [place] # (Auto) Eos # (Auto) Baso # (Auto) WBC Differential Differential Comment PT INR APTT POC Sodium Sodium POC Potassium Potassium POC Chloride Chloride Carbon Dioxide Anion Gap POC BUN BUN Creatinine POC Creatinine Estimated GFR POC Glucose 142 H Random Glucose Calcium Magnesium Total Bilirubin AST ALT Alkaline Phosphatase Total Creatine Kinase Troponin I B-Natriuretic Peptide Total Protein Albumin Triglycerides Cholesterol LDL Cholesterol, Calc HDL Cholesterol Cholesterol/HDL Ratio Urine Color Yellow Urine Clarity Clear Urine pH 6.0 Ur Specific [place] Greater than 1.060 H Urine Protein Negative Urine Glucose (UA) Negative Urine Ketones 20 Urine Occult Blood Negative Urine Nitrate Negative Urine Bilirubin Negative Urine Urobilinogen Less than 2 Ur Leukocyte Esterase Negative Urine RBC Less than 1 Urine WBC Less than 1 Urine Mucus Few H Micro UA Comment Cath-culture not ind Ur Microscopic Review Not Reportable Urine Culture Comments Cath-cult not ind Urine Opiates Screen Ur Barbiturates Screen Ur Amphetamines Screen U Benzodiazepines Scrn Urine Cocaine Screen U Cannabinoids Screen Blood Type B Positive Antibody Screen Negative 08/28/18 08/29/18 08/29/18 22:38 03:46 03:46 WBC 7.4 RBC 3.65 L Hgb 10.4 L 10.0 L POC Hgb (Calc) Hct 31.6 L 30.6 L POC Hct MCV 83.9 MCH 27.3 MCHC 32.5 RDW 16.7 Plt Count 374 MPV 6.9 L Neut % (Auto) 71.7 H Lymph % (Auto) 14.4 [place] % (Auto) 12.5 H Eos % (Auto) 0.8 Baso % (Auto) 0.6 Neut # (Auto) 5.3 Lymph # (Auto) 1.1 [place] # (Auto) 0.9 Eos # (Auto) 0.1 Baso # (Auto) 0.0 WBC Differential . Differential Comment Auto diff final PT INR APTT POC Sodium Sodium 141 POC Potassium Potassium 2.7 L* POC Chloride Chloride 105 Carbon Dioxide 28.1 Anion Gap 8 POC BUN BUN 14 Creatinine 0.94 POC Creatinine Estimated GFR 81 L POC Glucose Random Glucose 112 H Calcium 7.9 L Magnesium 1.7 Total Bilirubin 0.3 AST 9 L ALT 17 Alkaline Phosphatase 64 Total Creatine Kinase Troponin I B-Natriuretic Peptide Total Protein 5.2 L Albumin 2.7 L Triglycerides Cholesterol LDL Cholesterol, Calc HDL Cholesterol Cholesterol/HDL Ratio Urine Color Urine Clarity Urine pH Ur Specific [place] Urine Protein Urine Glucose (UA) Urine Ketones Urine Occult Blood Urine Nitrate Urine Bilirubin Urine Urobilinogen Ur Leukocyte Esterase Urine RBC Urine WBC Urine Mucus Micro UA Comment Ur Microscopic Review Urine Culture Comments Urine Opiates Screen Ur Barbiturates Screen Ur Amphetamines Screen U Benzodiazepines Scrn Urine Cocaine Screen U Cannabinoids Screen Blood Type Antibody Screen 08/29/18 08:17 WBC RBC Hgb POC Hgb (Calc) Hct POC Hct MCV MCH MCHC RDW Plt Count MPV Neut % (Auto) Lymph % (Auto) [place] % (Auto) Eos % (Auto) Baso % (Auto) Neut # (Auto) Lymph # (Auto) [place] # (Auto) Eos # (Auto) Baso # (Auto) WBC Differential Differential Comment PT INR APTT POC Sodium Sodium POC Potassium Potassium POC Chloride Chloride Carbon Dioxide Anion Gap POC BUN BUN Creatinine POC Creatinine Estimated GFR POC Glucose 141 H Random Glucose Calcium Magnesium Total Bilirubin AST ALT Alkaline Phosphatase Total Creatine Kinase Troponin I B-Natriuretic Peptide Total Protein Albumin Triglycerides Cholesterol LDL Cholesterol, Calc HDL Cholesterol Cholesterol/HDL Ratio Urine Color Urine Clarity Urine pH Ur Specific [place] Urine Protein Urine Glucose (UA) Urine Ketones Urine Occult Blood Urine Nitrate Urine Bilirubin Urine Urobilinogen Ur Leukocyte Esterase Urine RBC Urine WBC Urine Mucus Micro UA Comment Ur Microscopic Review Urine Culture Comments Urine Opiates Screen Ur Barbiturates Screen Ur Amphetamines Screen U Benzodiazepines Scrn Urine Cocaine Screen U Cannabinoids Screen Blood Type Antibody Screen - Imaging Impressions Head MRI 08/28/18 00:00 CONCLUSION: 1. No acute intracranial abnormality is identified. There are no findings to indicate recent ischemia. 2. Chronic changes include mild generalized atrophy and mild periventricular and subcortical white matter signal change characteristic of chronic microvascular ischemia. Chest X-Ray 08/28/18 17:00 CONCLUSION: No acute abnormality is seen. Head CT 08/28/18 17:00 CONCLUSION: Negative noncontrast CT examination the head. Report was called by Dr. Llanos to Dr. Watts at 5:19 PM Head CTA 08/28/18 17:00 CONCLUSION: 1. No large vessel occlusion is identified. There is mild to moderate calcified atherosclerotic plaque in the intracranial aspect of the internal carotid arteries bilaterally without high-grade stenosis. 2. 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 These findings were telephoned to Dr. Shaikh on 08/28/2018 5:30 PM. Neck CTA 08/28/18 17:00 CONCLUSION: 1. Dense calcified plaque at the right carotid bulb region with a possible significant stenosis with decreased contrast in this region. The evaluation this area is limited secondary to the dense calcification and suspected motion blurring in this region likely from swallowing. One could consider further evaluating this region with a repeat CTA at some point versus an MRA. 2. Possible occlusion versus very diminished flow in the mid to upper aspect of the left vertebral artery. There is contrast seen within the proximal left vertebral artery and in the left vertebral artery at the C1 level. Assessment and Plan (1) Crohns disease Status: Acute Code(s): K50.90 - Crohn's disease, unspecified, without complications (2) Guaiac + stool Status: Acute Code(s): R19.5 - Other fecal abnormalities - Plan 62-year-old patient with past medical history significant for hypertension, diabetes, Crohn's disease and GERD. Surgical history significant for 3 previous cardiac stents and removal of jaw cancer. Patient presented to [facility] emergency room last evening with complaint of left-sided weakness and right-sided vision loss. CT of the head showed mild to moderate bilateral stenosis of the internal carotid arteries. Patient is awake and alert , scheduled for right carotid endarterectomy today. Patient continues to experience mild left-sided weakness but states improving. Upon arrival to [facility], patient stools were found to be guaiac positive. Our service has been consulted to evaluate patient for guaiac positive stools , history of Crohn's disease. Upon consultation, patient denies any noted bleeding of bright red blood or dark stools. He does endorse taking aspirin 325 mg p.o. twice daily for the last 8-10 years. Patient states history of VT x3 with stent placement. Patient also endorses history of GERD for which he takes Zantac 150 mg p.o. twice daily. Patient denies any symptoms of acid reflux, heartburn or difficulty swallowing. Patient denies any painful swallowing or unintentional weight loss. States last EGD done in 2017, to his recollection did not reveal ulceration or inflammation. Patient states last colonoscopy done in 2017 revealed "unchanged" Crohn's disease. Patient denies any recollection of polyps. States he has a normal BM brown in color daily without any noted bleeding. Denies any constipation or diarrhea. Denies change in bowel habits. Patient states family history significant for his father having ulcerative colitis. Patient denies any use of EtOH or tobacco products. Black positive stools History of Crohn's -Patient presented to [facility] last evening with report of left- sided weakness and vision loss. Patient awake and alert, planned right carotid endarterectomy today. History of Crohn's disease, presently taking sulfasalazine 0.5 g p.o. every 6 hours, prednisone 10 mg p.o. daily. Patient also endorsing that he takes aspirin 325 mg p.o. twice daily for the last 8-10 years. History of VT with stents. -08/29/2018 WBC 7.4 hemoglobin 10.0 hematocrit 30.6 platelet count 374 INR 1.0 Plan -Diet as per attending -Monitor for bleeding -Monitor hemoglobin hematocrit closely -Bowel regimen -sulfasalazine 500 mg p.o. every 6 hours -GI will monitor closely, history of Crohn's disease with colonoscopy in 2017. -Right carotid endarterectomy today-GI will follow along postoperatively -Neurology clearance for endoscopic procedures -Supportive care -Further recommendations to follow This patient has been seen by myself and Dr. Holman this note is written on his behalf - Attending Attestation [email or web address]
--- NOTE | 2018-08-29 11:43 | P.PNFP ---
Subjective Interval history: Patient states that he feels better this morning. He can see out of his right eye and he can actually move his left leg and left arm much better today. His speech is still slurry but it is better than before. No chest pain, dizziness, headache, shortness of breath, nausea, vomiting, fever/chills. <EkoLorene Marilynn - 08/29/18 14:19> Results - Labs Result diagrams: 08/29/18 14:24 08/29/18 14:24 <Rodrick Cain - 08/29/18 15:40> Abnormal lab results 08/28/18 08/28/18 08/28/18 Range/Units 17:00 17:00 17:00 WBC 13.5 H (4.0-11.0) th/mm3 RBC 4.27 L (4.50-5.90) mil/mm3 Hgb 11.8 L (13.0-17.0) gm/dL POC Hgb (Calc) 11.9 L (13.0-17.0) g/dL Hct 35.1 L (39.0-51.0) % POC Hct 35.0 L (39-51.0) % MPV (7.0-11.0) fL Neut % (Auto) (16.0-70.0) % Lymph % (Auto) (9.0-44.0) % [place] % (Auto) 9.6 H (0.0-8.0) % Neut # (Auto) 9.2 H (1.8-7.7) th/mm3 Lymph # (Auto) (1.0-4.8) th/mm3 [place] # (Auto) 1.3 H (0.0-0.9) th/mm3 APTT 17.8 L (23.4-31.7) sec POC Potassium 3.1 L (3.6-5.0) mmol/L Potassium 3.2 L (3.5-5.1) meq/L POC Chloride 101 L (102-111) mmol/L Estimated GFR 66 L (>89) mL/min POC Glucose 161 H (68-110) mg/dL Random Glucose 155 H (74-106) mg/dL Calcium (8.5-10.1) mg/dL AST (15-37) U/L Troponin I Less than 0.02 L (0.02-0.05) ng/mL Total Protein (6.4-8.2) g/dL Albumin (3.4-5.0) g/dL Triglycerides (42-150) mg/dL Cholesterol (120-200) mg/dL LDL Cholesterol, Calc (0-99) mg/dL HDL Cholesterol (40.0-60.0) mg/dL Ur Specific [place] (1.002-1.035) Urine Mucus (Occasional) /lpf 08/28/18 08/28/18 08/28/18 Range/Units 17:00 17:59 20:25 WBC (4.0-11.0) th/mm3 RBC (4.50-5.90) mil/mm3 Hgb (13.0-17.0) gm/dL POC Hgb (Calc) (13.0-17.0) g/dL Hct (39.0-51.0) % POC Hct (39-51.0) % MPV (7.0-11.0) fL Neut % (Auto) (16.0-70.0) % Lymph % (Auto) (9.0-44.0) % [place] % (Auto) (0.0-8.0) % Neut # (Auto) (1.8-7.7) th/mm3 Lymph # (Auto) (1.0-4.8) th/mm3 [place] # (Auto) (0.0-0.9) th/mm3 APTT (23.4-31.7) sec POC Potassium (3.6-5.0) mmol/L Potassium (3.5-5.1) meq/L POC Chloride (102-111) mmol/L Estimated GFR (>89) mL/min POC Glucose 142 H (68-110) mg/dL Random Glucose (74-106) mg/dL Calcium (8.5-10.1) mg/dL AST (15-37) U/L Troponin I (0.02-0.05) ng/mL Total Protein (6.4-8.2) g/dL Albumin (3.4-5.0) g/dL Triglycerides 172 H (42-150) mg/dL Cholesterol 205 H (120-200) mg/dL LDL Cholesterol, Calc 109 H (0-99) mg/dL HDL Cholesterol 61.5 H (40.0-60.0) mg/dL Ur Specific [place] Greater than 1.060 H (1.002-1.035) Urine Mucus Few H (Occasional) /lpf 08/28/18 08/29/18 08/29/18 Range/Units 22:38 03:46 03:46 WBC (4.0-11.0) th/mm3 RBC 3.65 L (4.50-5.90) mil/mm3 Hgb 10.4 L 10.0 L (13.0-17.0) gm/dL POC Hgb (Calc) (13.0-17.0) g/dL Hct 31.6 L 30.6 L (39.0-51.0) % POC Hct (39-51.0) % MPV 6.9 L (7.0-11.0) fL Neut % (Auto) 71.7 H (16.0-70.0) % Lymph % (Auto) (9.0-44.0) % [place] % (Auto) 12.5 H (0.0-8.0) % Neut # (Auto) (1.8-7.7) th/mm3 Lymph # (Auto) (1.0-4.8) th/mm3 [place] # (Auto) (0.0-0.9) th/mm3 APTT (23.4-31.7) sec POC Potassium (3.6-5.0) mmol/L Potassium 2.7 L* (3.5-5.1) meq/L POC Chloride (102-111) mmol/L Estimated GFR 81 L (>89) mL/min POC Glucose (68-110) mg/dL Random Glucose 112 H (74-106) mg/dL Calcium 7.9 L (8.5-10.1) mg/dL AST 9 L (15-37) U/L Troponin I (0.02-0.05) ng/mL Total Protein 5.2 L (6.4-8.2) g/dL Albumin 2.7 L (3.4-5.0) g/dL Triglycerides (42-150) mg/dL Cholesterol (120-200) mg/dL LDL Cholesterol, Calc (0-99) mg/dL HDL Cholesterol (40.0-60.0) mg/dL Ur Specific [place] (1.002-1.035) Urine Mucus (Occasional) /lpf 08/29/18 08/29/18 08/29/18 Range/Units 08:17 14:24 14:24 WBC 12.1 H D (4.0-11.0) th/mm3 RBC 3.49 L (4.50-5.90) mil/mm3 Hgb 9.5 L (13.0-17.0) gm/dL POC Hgb (Calc) (13.0-17.0) g/dL Hct 29.7 L (39.0-51.0) % POC Hct (39-51.0) % MPV 6.6 L (7.0-11.0) fL Neut % (Auto) 96.4 H (16.0-70.0) % Lymph % (Auto) 2.2 L (9.0-44.0) % [place] % (Auto) (0.0-8.0) % Neut # (Auto) 11.6 H (1.8-7.7) th/mm3 Lymph # (Auto) 0.3 L (1.0-4.8) th/mm3 [place] # (Auto) (0.0-0.9) th/mm3 APTT (23.4-31.7) sec POC Potassium (3.6-5.0) mmol/L Potassium (3.5-5.1) meq/L POC Chloride (102-111) mmol/L Estimated GFR (>89) mL/min POC Glucose 141 H (68-110) mg/dL Random Glucose 196 H (74-106) mg/dL Calcium 7.3 L* (8.5-10.1) mg/dL AST (15-37) U/L Troponin I (0.02-0.05) ng/mL Total Protein (6.4-8.2) g/dL Albumin (3.4-5.0) g/dL Triglycerides (42-150) mg/dL Cholesterol (120-200) mg/dL LDL Cholesterol, Calc (0-99) mg/dL HDL Cholesterol (40.0-60.0) mg/dL Ur Specific [place] (1.002-1.035) Urine Mucus (Occasional) /lpf Short CBC 08/28/18 08/28/18 08/29/18 Range/Units 17:00 22:38 03:46 WBC 13.5 H 7.4 (4.0-11.0) th/mm3 Hgb 11.8 L 10.4 L 10.0 L (13.0-17.0) gm/dL Hct 35.1 L 31.6 L 30.6 L (39.0-51.0) % Plt Count 439 374 (150-450) th/mm3 08/29/18 Range/Units 14:24 WBC 12.1 H D (4.0-11.0) th/mm3 Hgb 9.5 L (13.0-17.0) gm/dL Hct 29.7 L (39.0-51.0) % Plt Count 351 (150-450) th/mm3 BMP 08/28/18 08/29/18 08/29/18 17:00 03:46 14:24 Sodium 141 141 141 Potassium 3.2 L 2.7 L* 4.1 D Chloride 104 105 107 Carbon Dioxide 22.5 28.1 25.6 BUN 15 14 13 Creatinine 1.12 0.94 0.68 Calcium 8.5 7.9 L 7.3 L* Cardiac Enzymes 08/28/18 Range/Units 17:00 Total Creatine Kinase 40 (39-308) U/L Troponin I Less than 0.02 L (0.02-0.05) ng/mL Liver Function 08/29/18 Range/Units 03:46 Total Bilirubin 0.3 (0.2-1.0) mg/dL AST 9 L (15-37) U/L ALT 17 (12-78) U/L Alkaline Phosphatase 64 (45-117) U/L Albumin 2.7 L (3.4-5.0) g/dL Urine 08/28/18 Range/Units 17:59 Urine Color Yellow (Yellw/Straw) Urine Clarity Clear (Clear) Urine pH 6.0 (5.0-8.5) Ur Specific [place] Greater than 1.060 H (1.002-1.035) Urine Protein Negative (Neg-Trace) mg/dL Urine Glucose (UA) Negative (Negative) mg/dL <Rodrick Cain - 08/29/18 15:40> Abnormal lab results 08/28/18 08/28/18 08/28/18 Range/Units 17:00 17:00 17:00 WBC 13.5 H (4.0-11.0) th/mm3 RBC 4.27 L (4.50-5.90) mil/mm3 Hgb 11.8 L (13.0-17.0) gm/dL POC Hgb (Calc) 11.9 L (13.0-17.0) g/dL Hct 35.1 L (39.0-51.0) % POC Hct 35.0 L (39-51.0) % MPV (7.0-11.0) fL Neut % (Auto) (16.0-70.0) % [place] % (Auto) 9.6 H (0.0-8.0) % Neut # (Auto) 9.2 H (1.8-7.7) th/mm3 [place] # (Auto) 1.3 H (0.0-0.9) th/mm3 APTT 17.8 L (23.4-31.7) sec POC Potassium 3.1 L (3.6-5.0) mmol/L Potassium 3.2 L (3.5-5.1) meq/L POC Chloride 101 L (102-111) mmol/L Estimated GFR 66 L (>89) mL/min POC Glucose 161 H (68-110) mg/dL Random Glucose 155 H (74-106) mg/dL Calcium (8.5-10.1) mg/dL AST (15-37) U/L Troponin I Less than 0.02 L (0.02-0.05) ng/mL Total Protein (6.4-8.2) g/dL Albumin (3.4-5.0) g/dL Triglycerides (42-150) mg/dL Cholesterol (120-200) mg/dL LDL Cholesterol, Calc (0-99) mg/dL HDL Cholesterol (40.0-60.0) mg/dL Ur Specific [place] (1.002-1.035) Urine Mucus (Occasional) /lpf 08/28/18 08/28/18 08/28/18 Range/Units 17:00 17:59 20:25 WBC (4.0-11.0) th/mm3 RBC (4.50-5.90) mil/mm3 Hgb (13.0-17.0) gm/dL POC Hgb (Calc) (13.0-17.0) g/dL Hct (39.0-51.0) % POC Hct (39-51.0) % MPV (7.0-11.0) fL Neut % (Auto) (16.0-70.0) % [place] % (Auto) (0.0-8.0) % Neut # (Auto) (1.8-7.7) th/mm3 [place] # (Auto) (0.0-0.9) th/mm3 APTT (23.4-31.7) sec POC Potassium (3.6-5.0) mmol/L Potassium (3.5-5.1) meq/L POC Chloride (102-111) mmol/L Estimated GFR (>89) mL/min POC Glucose 142 H (68-110) mg/dL Random Glucose (74-106) mg/dL Calcium (8.5-10.1) mg/dL AST (15-37) U/L Troponin I (0.02-0.05) ng/mL Total Protein (6.4-8.2) g/dL Albumin (3.4-5.0) g/dL Triglycerides 172 H (42-150) mg/dL Cholesterol 205 H (120-200) mg/dL LDL Cholesterol, Calc 109 H (0-99) mg/dL HDL Cholesterol 61.5 H (40.0-60.0) mg/dL Ur Specific [place] Greater than 1.060 H (1.002-1.035) Urine Mucus Few H (Occasional) /lpf 08/28/18 08/29/18 08/29/18 Range/Units 22:38 03:46 03:46 WBC (4.0-11.0) th/mm3 RBC 3.65 L (4.50-5.90) mil/mm3 Hgb 10.4 L 10.0 L (13.0-17.0) gm/dL POC Hgb (Calc) (13.0-17.0) g/dL Hct 31.6 L 30.6 L (39.0-51.0) % POC Hct (39-51.0) % MPV 6.9 L (7.0-11.0) fL Neut % (Auto) 71.7 H (16.0-70.0) % [place] % (Auto) 12.5 H (0.0-8.0) % Neut # (Auto) (1.8-7.7) th/mm3 [place] # (Auto) (0.0-0.9) th/mm3 APTT (23.4-31.7) sec POC Potassium (3.6-5.0) mmol/L Potassium 2.7 L* (3.5-5.1) meq/L POC Chloride (102-111) mmol/L Estimated GFR 81 L (>89) mL/min POC Glucose (68-110) mg/dL Random Glucose 112 H (74-106) mg/dL Calcium 7.9 L (8.5-10.1) mg/dL AST 9 L (15-37) U/L Troponin I (0.02-0.05) ng/mL Total Protein 5.2 L (6.4-8.2) g/dL Albumin 2.7 L (3.4-5.0) g/dL Triglycerides (42-150) mg/dL Cholesterol (120-200) mg/dL LDL Cholesterol, Calc (0-99) mg/dL HDL Cholesterol (40.0-60.0) mg/dL Ur Specific [place] (1.002-1.035) Urine Mucus (Occasional) /lpf 08/29/18 Range/Units 08:17 WBC (4.0-11.0) th/mm3 RBC (4.50-5.90) mil/mm3 Hgb (13.0-17.0) gm/dL POC Hgb (Calc) (13.0-17.0) g/dL Hct (39.0-51.0) % POC Hct (39-51.0) % MPV (7.0-11.0) fL Neut % (Auto) (16.0-70.0) % [place] % (Auto) (0.0-8.0) % Neut # (Auto) (1.8-7.7) th/mm3 [place] # (Auto) (0.0-0.9) th/mm3 APTT (23.4-31.7) sec POC Potassium (3.6-5.0) mmol/L Potassium (3.5-5.1) meq/L POC Chloride (102-111) mmol/L Estimated GFR (>89) mL/min POC Glucose 141 H (68-110) mg/dL Random Glucose (74-106) mg/dL Calcium (8.5-10.1) mg/dL AST (15-37) U/L Troponin I (0.02-0.05) ng/mL Total Protein (6.4-8.2) g/dL Albumin (3.4-5.0) g/dL Triglycerides (42-150) mg/dL Cholesterol (120-200) mg/dL LDL Cholesterol, Calc (0-99) mg/dL HDL Cholesterol (40.0-60.0) mg/dL Ur Specific [place] (1.002-1.035) Urine Mucus (Occasional) /lpf Short CBC 08/28/18 08/28/18 08/29/18 Range/Units 17:00 22:38 03:46 WBC 13.5 H 7.4 (4.0-11.0) th/mm3 Hgb 11.8 L 10.4 L 10.0 L (13.0-17.0) gm/dL Hct 35.1 L 31.6 L 30.6 L (39.0-51.0) % Plt Count 439 374 (150-450) th/mm3 BMP 08/28/18 08/29/18 17:00 03:46 Sodium 141 141 Potassium 3.2 L 2.7 L* Chloride 104 105 Carbon Dioxide 22.5 28.1 BUN 15 14 Creatinine 1.12 0.94 Calcium 8.5 7.9 L Cardiac Enzymes 08/28/18 Range/Units 17:00 Total Creatine Kinase 40 (39-308) U/L Troponin I Less than 0.02 L (0.02-0.05) ng/mL Liver Function 08/29/18 Range/Units 03:46 Total Bilirubin 0.3 (0.2-1.0) mg/dL AST 9 L (15-37) U/L ALT 17 (12-78) U/L Alkaline Phosphatase 64 (45-117) U/L Albumin 2.7 L (3.4-5.0) g/dL Urine 08/28/18 Range/Units 17:59 Urine Color Yellow (Yellw/Straw) Urine Clarity Clear (Clear) Urine pH 6.0 (5.0-8.5) Ur Specific [place] Greater than 1.060 H (1.002-1.035) Urine Protein Negative (Neg-Trace) mg/dL Urine Glucose (UA) Negative (Negative) mg/dL <RafiLorene Marilynn - 08/29/18 11:43> - Imaging Impressions Head MRI 08/28/18 00:00 CONCLUSION: 1. No acute intracranial abnormality is identified. There are no findings to indicate recent ischemia. 2. Chronic changes include mild generalized atrophy and mild periventricular and subcortical white matter signal change characteristic of chronic microvascular ischemia. Chest X-Ray 08/28/18 17:00 CONCLUSION: No acute abnormality is seen. Head CT 08/28/18 17:00 CONCLUSION: Negative noncontrast CT examination the head. Report was called by Dr. Llanos to Dr. Watts at 5:19 PM Head CTA 08/28/18 17:00 CONCLUSION: 1. No large vessel occlusion is identified. There is mild to moderate calcified atherosclerotic plaque in the intracranial aspect of the internal carotid arteries bilaterally without high-grade stenosis. 2. 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 These findings were telephoned to Dr. Shaikh on 08/28/2018 5:30 PM. Neck CTA 08/28/18 17:00 CONCLUSION: 1. Dense calcified plaque at the right carotid bulb region with a possible significant stenosis with decreased contrast in this region. The evaluation this area is limited secondary to the dense calcification and suspected motion blurring in this region likely from swallowing. One could consider further evaluating this region with a repeat CTA at some point versus an MRA. 2. Possible occlusion versus very diminished flow in the mid to upper aspect of the left vertebral artery. There is contrast seen within the proximal left vertebral artery and in the left vertebral artery at the C1 level. <Rodrick Cain - 08/29/18 15:40> Impressions Head MRI 08/28/18 00:00 CONCLUSION: 1. No acute intracranial abnormality is identified. There are no findings to indicate recent ischemia. 2. Chronic changes include mild generalized atrophy and mild periventricular and subcortical white matter signal change characteristic of chronic microvascular ischemia. Chest X-Ray 08/28/18 17:00 CONCLUSION: No acute abnormality is seen. Head CT 08/28/18 17:00 CONCLUSION: Negative noncontrast CT examination the head. Report was called by Dr. Llanos to Dr. Watts at 5:19 PM Head CTA 08/28/18 17:00 CONCLUSION: 1. No large vessel occlusion is identified. There is mild to moderate calcified atherosclerotic plaque in the intracranial aspect of the internal carotid arteries bilaterally without high-grade stenosis. 2. 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 These findings were telephoned to Dr. Shaikh on 08/28/2018 5:30 PM. Neck CTA 08/28/18 17:00 CONCLUSION: 1. Dense calcified plaque at the right carotid bulb region with a possible significant stenosis with decreased contrast in this region. The evaluation this area is limited secondary to the dense calcification and suspected motion blurring in this region likely from swallowing. One could consider further evaluating this region with a repeat CTA at some point versus an MRA. 2. Possible occlusion versus very diminished flow in the mid to upper aspect of the left vertebral artery. There is contrast seen within the proximal left vertebral artery and in the left vertebral artery at the C1 level. <Eko,Lorene U - 08/29/18 11:43> Physical Exam Vital signs: Vital Signs 08/28/18 17:38 08/28/18 17:45 08/28/18 17:53 Temperature 98.5 F 98.3 F Pulse Rate 104 H 96 H Respiratory Rate 18 18 Blood Pressure 176/99 H 174/99 H Pulse Oximetry 91 L 94 L 93 L 08/28/18 18:46 08/28/18 19:45 08/28/18 21:00 Temperature 97.9 F Pulse Rate 73 87 78 Respiratory Rate 18 18 22 Blood Pressure 186/98 H 188/100 H 188/99 H Pulse Oximetry 94 L 97 08/29/18 00:00 08/29/18 04:00 08/29/18 08:00 Temperature 98.3 F 98.4 F 97.9 F Pulse Rate 72 72 72 Respiratory Rate 20 22 16 Blood Pressure 171/92 H 163/91 H 172/94 H Pulse Oximetry 98 100 100 08/29/18 09:38 08/29/18 13:25 08/29/18 13:56 Temperature 98.1 F Pulse Rate 87 87 Respiratory Rate 12 Blood Pressure 177/93 H Pulse Oximetry 98 99 08/29/18 15:32 Temperature Pulse Rate 50 L Respiratory Rate 18 Blood Pressure Pulse Oximetry 99 Intake & Output 08/28/18 08/29/18 08/29/18 18:59 06:59 18:59 Intake Total 100 / 100 1801 / 1801 Output Total 550 / 550 150 / 150 Balance -450 / -450 1651 / 1651 Weight 74.5 kg 74 kg Intake: IV 501 / 501 Heparin/NS PF Inj 500 ML @ 0 500 / 500 mls/hr .ROUTE .STK-MED ONE Rx#: [id number] Nitroglycerin Drip Premix 50 mg 1 / 1 In 250 ml @ 0 mls/hr .ROUTE . STK-MED ONE Rx#:[id number] Oral 100 / 100 Anesthesia Amount 1300 / 1300 Output: Urine 550 / 550 Estimated Blood Loss 50 / 50 Urine Amount (Catheter) 100 / 100 Indwelling Urethral Catheter 100 / 100 Other: Date of Last Bowel Movement 08/28/18 08/28/18 Weight On Admission 74 kg <Rodrick Cain - 08/29/18 15:40> Vital Signs 08/28/18 17:38 08/28/18 17:45 08/28/18 17:53 Temperature 98.5 F 98.3 F Pulse Rate 104 H 96 H Respiratory Rate 18 18 Blood Pressure 176/99 H 174/99 H Pulse Oximetry 91 L 94 L 93 L 08/28/18 18:46 08/28/18 19:45 08/28/18 21:00 Temperature 97.9 F Pulse Rate 73 87 78 Respiratory Rate 18 18 22 Blood Pressure 186/98 H 188/100 H 188/99 H Pulse Oximetry 94 L 97 08/29/18 00:00 08/29/18 04:00 08/29/18 08:00 Temperature 98.3 F 98.4 F 97.9 F Pulse Rate 72 72 72 Respiratory Rate 20 22 16 Blood Pressure 171/92 H 163/91 H 172/94 H Pulse Oximetry 98 100 100 08/29/18 09:38 Temperature Pulse Rate Respiratory Rate Blood Pressure Pulse Oximetry 98 Intake & Output 08/28/18 08/29/18 08/29/18 18:59 06:59 18:59 Intake Total 100 / 100 500 / 500 Output Total 550 / 550 Balance -450 / -450 500 / 500 Weight 74.5 kg 74 kg Intake: IV 500 / 500 Heparin/NS PF Inj 500 ML @ 0 500 / 500 mls/hr .ROUTE .STK-MED ONE Rx#: [id number] Oral 100 / 100 Output: Urine 550 / 550 Other: Date of Last Bowel Movement 08/28/18 08/28/18 Weight On Admission 74 kg <Lorene Mckee U - 08/29/18 11:43> Narrative: GENERAL: Laying in bed, no acute distress SKIN: Warm and dry. Circular scar on anterior chest from radiation of skin cancer. HEAD: Atraumatic. Normocephalic. EYES: Pupils equal and round. No scleral icterus. No injection or drainage. ENT: No nasal bleeding or discharge. Mucous membranes pink and moist. NECK: Trachea midline. No JVD. CARDIOVASCULAR: Regular rate and rhythm. RESPIRATORY: No accessory muscle use. Clear to auscultation. Breath sounds equal bilaterally. GASTROINTESTINAL: Abdomen soft, non-tender, nondistended. Hepatic and splenic margins not palpable. MUSCULOSKELETAL: Extremities without clubbing, cyanosis, or edema. No obvious deformities. NEUROLOGICAL: Awake and alert. Peripheral vision intact on the right, Pronator drift present on the left, 3-4/5 in left arm and leg improved from the previous day. No facial droop, speech slightly slurry, 5/5 in right arm and leg. PSYCHIATRIC: Appropriate mood and affect; insight and judgment normal. <Lorene Mckee U - 08/29/18 14:19> - Urinary Catheter Management Indwelling Urethral Catheter Cath placed during this visit: no <Rodrick Cain - 08/29/18 15:40> yes <Lorene Mckee U - 08/29/18 14:19> Reason for continuing: Hourly intake/output <Lorene Mckee U - 08/29/18 11:43> Insertion date: 08/29/18 <Lorene Mckee U - 08/29/18 11:43> Insertion time: 10:30 <Lorene Mckee U - 08/29/18 11:43> Assessment and Plan - Assessment (1) Right hemisphere, cerebral infarction Code(s): I63.9 - Cerebral infarction, unspecified Status: Acute (2) Symptomatic stenosis of right carotid artery Code(s): I65.21 - Occlusion and stenosis of right carotid artery Status: Acute (3) GI bleed Code(s): K92.2 - Gastrointestinal hemorrhage, unspecified Status: Acute (4) Crohns disease Code(s): K50.90 - Crohn's disease, unspecified, without complications Status: Acute (5) Diabetes Code(s): E11.9 - Type 2 diabetes mellitus without complications Status: Acute (6) HTN (hypertension) Code(s): I10 - Essential (primary) hypertension Status: Acute (7) Hypokalemia Code(s): E87.6 - Hypokalemia Status: Acute <Rodrick Cain - 08/29/18 15:40> (1) Right hemisphere, cerebral infarction Code(s): I63.9 - Cerebral infarction, unspecified Status: Acute Plan: Patient with right hemisphere stroke. No TPA was administered due to GI bleed. History of Crohn's. Dense calcified plaque at right carotid bulb region with significant stenosis. -Vascular surgery on board * Carotid artery endarterectomy with pericardial patch angioplasty performed today 08/29/2018 -Continue Aspirin 325 mg daily -Lipid panel notable for trig of 172, Total chol 205, LDL 109, HDL 61.5 * Currently on Pravastatin 40mg PO daily * Consider switching to Atorvastatin -Permissive hypertension up to 210/110 -Follow-up echocardiogram -Speech eval for speech pending -Occupational therapy consult pending -Pt eval and treat (2) Symptomatic stenosis of right carotid artery Code(s): I65.21 - Occlusion and stenosis of right carotid artery Status: Acute Plan: -Dense calcified plaque at right carotid bulb region with significant stenosis -Vascular surgery on board * POD0 Carotid artery endarterectomy with pericardial patch angioplasty See plan above for R hemispheric stroke (3) GI bleed Code(s): K92.2 - Gastrointestinal hemorrhage, unspecified Status: Acute Plan: History of Crohn's disease. On sulfasalazine. Hemoccult positive. He takes aspirin 325mg PO BID -Hemoglobin 11.8 on admission, down to 10 today -GI on board * Will follow along and monitor closely -Follow-up H&H (4) Crohns disease Code(s): K50.90 - Crohn's disease, unspecified, without complications Status: Acute Plan: -GI following -Continue sulfasalazine 500 mg p.o. every 6 hours (5) Diabetes Code(s): E11.9 - Type 2 diabetes mellitus without complications Status: Acute Plan: -Hold metformin -Accu-Cheks with low-dose sliding scale (6) HTN (hypertension) Code(s): I10 - Essential (primary) hypertension Status: Acute Plan: History of hypertension. -Hold home medications, permissive HTN for now (7) Hypokalemia Code(s): E87.6 - Hypokalemia Status: Acute Plan: Potassium 2.7 this morning -Monitor and replete as needed <AlejandrojenniferLorene - 08/29/18 13:36> - Assessment and Plan 62-year-old male admitted for left-sided weakness found to have a right hemispheric stroke and right symptomatic carotid stenosis on CTA. Neurology consulted. Vascular surgery was consulted and proceeded with right carotid artery endarterectomy performed on 08/29/2018. <AlejandrojenniferLorene - 08/29/18 14:19> Discussed Condition With: Seen and examined with Dr. Cain-attending, and Dr. Harris -PGY1 <AlejandrojenniferLorene - 08/29/18 14:19> Discharge Planning: Patient is clinically improving. Discharge pending vascular surgery and neurology recommendations as well as PT evaluation for disposition. <Lorene Mckee - 08/29/18 14:19> - Attending Attestation See the residents documentation for details. I saw and evaluated the patient regarding the lilly portions of this evaluation and agree with the residents findings and plans as written. Parts of this note were created using [employer] voice recognition software program. While efforts were made to correct any mistakes made by this software, some mistakes, errors, and omissions may remain in the final note that were not caught when the note was originally created. Plan of care was discussed and agreed upon with the patient as specifically documented in the above note. An opportunity to ask questions with explanation was provided. Patient voiced understanding on all information reviewed and discussed. <Rodrick Cain - 08/29/18 15:40>
--- NOTE | 2018-08-29 11:51 | OTSOAPIP ---
TIME SESSION COMPLETED: 1000 08/29/18 PATIENT OFF THE FLOOR FOR RIGHT CAROTID ENDARTERECTOMY. HE WILL RETURN TO [facility]ICU. Therapist: Sandy Aceves Signature on file
--- NOTE | 2018-08-29 13:15 | P.OP ---
Preoperative Diagnosis: Symptomatic severe right carotid artery stenosis Postoperative Diagnosis: Symptomatic severe right carotid artery stenosis Date of procedure: 08/29/18 Procedure: Right carotid artery endarterectomy with a pericardial patch angioplasty. Anesthesia: GETA Surgeon: Aaron Zarate MD Estimated blood loss (mL): 50 Operation and Findings: Findings 90% stenosis of the right carotid artery. There was treated for his carotid artery endarterectomy with pericardial patch angioplasty. I used an [place] shunt and my total clamp time was less than 1 minute. Operation details The patient was taken to the operating room placed supine on the OR table. After general trach anesthesia the patient was prepped and draped in the standard sterile fashion. Timeout was called with all members in the OR in agreement. An incision was made anterior to the right sternocleidal mastoid. Dissection was taken down through the subcutaneous tissues with electrocautery. The facial vein identified and ligated and divided. The carotid sheath was entered. The common carotid artery, external carotid artery, superior thyroid artery, internal carotid artery were dissected and encircled Silastic loop. Hypoglossal nerve, ansa cervicalis, and vagus nerves were identified and protected throughout the whole procedure. Patient was heparinized. Proximal distal control was obtained. Arteriotomy was created in the common carotid artery that extended into the internal carotid artery. A shunt was placed to establish from the common carotid artery to the internal carotid artery. Endarterectomy was performed. Fine-tuning was also performed to remove any small floaters. The artery was repaired using a pericardial patch that was cut to appropriate length and secured using a 6-0 Prolene suture in the running fashion. The shunt was removed. All vessels were flushed. The suture line was completed. I established flow from the common carotid artery to the external carotid artery then into the internal carotid artery. Hemostasis is achieved. #19 MAXIMILIANO drain was placed in the wound brought to the skin using a different stab wound and secured using nylon suture. The wound was closed in multiple layers of Vicryl suture followed by Monocryl suture. Sterile dressing was applied. The patient was awakened from anesthesia with no new neurological deficit. His tongue was midline. He tolerated the procedure well and was taken to recovery unit in stable condition.
[2018-08-29] MEDS ORDERED: Morphine Inj 4 MG/ML Vial ONE (13:35)
[2018-08-29] MEDS ORDERED: fentaNYL Citrate Inj 100 MCG/2 ML Ampul ONE (13:35)
[2018-08-29] MEDS ORDERED: Magnesium Sulfate Inj 4 GM in Sodium Chlor 0.9% Inj 92 ML IV.SIG PRN (14:11)
[2018-08-29] MEDS ORDERED: Potassium Chloride 25 MEQ Effervescent Tablet PO PRN (14:11)
[2018-08-29] MEDS ORDERED: Potassium Chlor 40 mEq Premix 40 MEQ/100 ML PIGGYBACK IV.SIG PRN ×2 (14:11)
[2018-08-29] MEDS ORDERED: Magnesium Oxide 400 MG Tablet PO PRN (14:11)
[2018-08-29] MEDS ORDERED: Magnesium Sulfate Inj 2 GM in Sodium Chlor 0.9% Inj 96 ML IV.SIG PRN (14:11)
[2018-08-29] MEDS ORDERED: Potassium Phosphate Inj 30 MMOL in Sodium Chlor 0.9% Inj 250 ML IV.SIG PRN (14:11)
[2018-08-29] MEDS ORDERED: Potassium Chlor 20 mEq Premix 20 MEQ/100 ML PIGGYBACK IV.SIG PRN ×2 (14:11)
[2018-08-29] MEDS ORDERED: Potassium Phosphate 500 MG Soluble Tablet PO PRN ×2 (14:11)
[2018-08-29] MEDS ORDERED: Sodium Phosphate Inj 30 MMOL in Sodium Chlor 0.9% Inj 250 ML IV.SIG PRN (14:11)
[2018-08-29] MEDS ORDERED: Morphine Sulfate Inj 2 MG/ML Vial IV.PUSH PRN (14:14)
[2018-08-29] MEDS ORDERED: Nitroglycerin Drip Premix 50 MG/250 ML BOTTLE IV.CONT PRN (14:30)
[2018-08-29] MEDS ORDERED: Dextrose 50% in Water 50 ML Vial IV.PUSH PRN (14:34)
[2018-08-29 14:40] LABS: Baso % (Auto) 0.2 % (0.0-2.0); Hematocrit 29.7 % (39.0-51.0); Hemoglobin 9.5 gm/dL (13.0-17.0); Lymph # (Auto) 0.3 th/mm3 (1.0-4.8); Lymph % (Auto) 2.2 % (9.0-44.0); Mean Corpuscular Hemoglobin 27.2 pg (27.0-34.0); Mean Platelet Volume 6.6 fL (7.0-11.0); Mono # (Auto) 0.1 th/mm3 (0.0-0.9); Mono % (Auto) 1.2 % (0.0-8.0); Neut # (Auto) 11.6 th/mm3 (1.8-7.7); Neut % (Auto) 96.4 % (16.0-70.0); Platelet Count 351 th/mm3 (150-450); Red Blood Count 3.49 mil/mm3 (4.50-5.90); Red Cell Distribution Width 16.8 % (11.6-17.2); White Blood Count 12.1 th/mm3 (4.0-11.0)
--- NOTE | 2018-08-29 14:56 | MB ---
cc: Rell Mcdonough MD DATE: 08/29/2018 HISTORY OF PRESENT ILLNESS: The patient is a 62-year-old male with a past medical history of hypertension, diabetes mellitus, coronary artery disease, Crohn disease, who was admitted on 08/28/2018 on the Family Medicine Service for left-sided weakness and right hemispheric stroke. The patient was not a candidate for TPA at that time due to a GI bleed. CT brain on arrival showed no acute intracranial findings. CT of the neck showed dense calcified plaque at the right carotid bulb with significant stenosis. The patient was seen by vascular surgery and underwent a right carotid endarterectomy today by Dr. Zarate. The patient had 1300 mL of crystalloids in the OR and urine output of 100 mL. Estimated blood loss: 50 mL. He was transferred to CV ICU postop and started on nitro drip, currently at 40 mcg. Chest x-ray yesterday showed no acute abnormalities. When seen, the patient is awake, alert, lying in bed, in no acute respiratory distress. He is on 4 liters oxygen with saturation of 99%. The patient is awake, alert, lying in bed, in no acute respiratory distress. He denies any chest pain or shortness of breath. PAST MEDICAL HISTORY: Significant for hypertension, diabetes mellitus, Crohn's disease, coronary artery disease, melanoma. PAST SURGICAL HISTORY: Previous coronary stent placement. FAMILY HISTORY: Coronary artery disease runs in the family. SOCIAL HISTORY: Nonsmoker, nondrinker. ALLERGIES: PENICILLIN AND ADHESIVE TAPE. CURRENT MEDICATIONS: Include: 1. Pravachol. 2. Aspirin. REVIEW OF SYSTEMS: As per HPI, rest is unremarkable. PHYSICAL EXAMINATION: GENERAL: A 62-year-old male lying in bed, in no acute respiratory distress. VITAL SIGNS: Temperature 98.1, pulse 87, respiratory rate of 16, blood pressure 153/74, saturation 96% to 99% on 4 liter oxygen. HEENT: Atraumatic, normocephalic. Pupils are equal, round, reactive to light and accommodation. Extraocular muscles intact. Conjunctivae pink. Nonicteric sclerae. Oral mucosa within normal. NECK: Supple. No JVD, adenopathy or thyromegaly. Trachea in the midline. A MAXIMILIANO in place on the right. CARDIOVASCULAR: Regular rate and rhythm. Normal S1, S2. No murmurs, rubs or gallops noted on exam. PULMONARY: Bilateral equal air entry. No rales or wheezes. ABDOMEN: Soft, nontender, nondistended, positive bowel sounds. EXTREMITIES: No cyanosis, clubbing or edema. NEUROLOGIC: No focal sensory deficit. LABORATORY DATA: Sodium 141, potassium 2.7, chloride 105, CO2 28, BUN 14, creatinine 0.94, glucose 141. WBC 7.4, hemoglobin 10, hematocrit 30, platelet count of 374. RADIOGRAPHIC STUDIES: 1. Chest x-ray shows no acute cardiopulmonary disease. 2. MRI of the brain showed no acute intracranial findings. IMPRESSION: 1. Status post right carotid endarterectomy. 2. Right-sided cerebrovascular accident. 3. Hypertension. 4. Coronary artery disease. 5. Questionable gastrointestinal bleed. 6. Diabetes mellitus. 7. Hypokalemia. RECOMMENDATIONS: 1. Monitor neuro status closely and avoid any sedatives. 2. Place on Morphine 1 mg every 4 hours p.r.n. for pain. 3. Wean down oxygen as tolerated and maintain sats above 92%. 4. Bronchodilators in the form of DuoNeb every 6 hours plus every 2 hours p.r.n. for shortness of breath. A chest x-ray yesterday showed no acute disease. 5. Wean off nitro drip and monitor heart rate and blood pressure closely and maintain MAP greater than 65 mmHg. 6. Monitor renal function, I's and O's. Electrolyte replacement per protocol. Will need potassium replacement today. 7. Patient started on a clear liquid diet per vascular surgery. 8. Place on Protonix 40 mg daily for gastrointestinal prophylaxis. 9. Monitor for signs of infection which include fever and WBC. Tsang culture if spikes a fever. 10. Sliding scale insulin for glycemic control. 11. Monitor CBC. 12. Gastrointestinal prophylaxis with Protonix 40 mg daily and deep venous thrombosis prophylaxis with sequential compression devices for now. Further recommendations will be based on hospital course. MD JHONATHAN Osborne/sofi , 02:25 PM , 02:37 PM
[2018-08-29 15:20] LABS: Anion Gap 8 meq/L (5-15); Blood Urea Nitrogen 13 mg/dL (7-18); Calcium 7.3 mg/dL (8.5-10.1); Carbon Dioxide 25.6 meq/L (21.0-32.0); Chloride 107 meq/L (98-107); Glomerular Filtration Rate Greater Than 89 mL/min (>89); Glucose,Random 196 mg/dL (74-106); Magnesium 1.6 mg/dL (1.5-2.5); Phosphorus 2.5 mg/dL (2.5-4.9); Potassium 4.1 meq/L (3.5-5.1); Sodium 141 meq/L (136-145)
--- NOTE | 2018-08-29 15:41 | P.PNNEU ---
Subjective Subjective Comments: Pt is s/p right carotid endarterectomy this am. He is improved neurologically with normal left strength Active Medications: Active Medications Albuterol (Duoneb Neb (Prn)) 1 ampul NEB Q2HR NEB PRN PRN Reason: DYSPNEA Albuterol (Duoneb Neb (Galo)) 1 ampul NEB Q6HR NEB [facility] Last Admin: 08/29/18 15:31 Dose: 1 ampul Aspirin (Ecotrin) 325 mg PO DAILY [facility] Last Admin: 08/29/18 09:22 Dose: Not Given Dextrose (D50w Vial) 50 ml IV.PUSH UNSCH PRN PRN Reason: PER HYPOGLYCEMIA PROTOCOL Dextrose (D50w Vial) 50 ml IV.PUSH UNSCH PRN PRN Reason: PER HYPOGLYCEMIA PROTOCOL Glucagon (Glucagon Inj) 1 mg OTHER UNSCH PRN PRN Reason: for Hypoglycemia Protocol Glucagon (Glucagon Inj) 1 mg OTHER PRN PRN PRN Reason: for Hypoglycemia Protocol Nicardipine HCl 25 mg/ Sodium (Chloride) 250 mls @ 50 mls/hr IV.CONT TITRATE PRN; Protocol PRN Reason: Per Protocol Nitroglycerin/Dextrose (Nitroglycerin Drip Premix) 50 mg in 250 mls @ 12 mls/ hr IV.CONT TITRATE PRN; Protocol PRN Reason: Per Protocol Magnesium Sulfate 4 gm/ Sodium (Chloride) 100 mls @ 50 mls/hr IV.SIG UNSCH PRN PRN Reason: For Magnesium 0.9 - 1.1 mg/dL Potassium Chloride (Kcl 40 Meq Premix Inj) 40 meq in 100 mls @ 50 mls/hr IV.SIG Q2H PRN PRN Reason: For Potassium 2.8 - 3.2 mEq/L Potassium Chloride (Kcl 20 Meq Premix Inj) 20 meq in 100 mls @ 50 mls/hr IV.SIG Q2H PRN PRN Reason: For Potassium 3.3 - 3.5 mEq/L Potassium Chloride (Kcl 40 Meq Premix Inj) 40 meq in 100 mls @ 25 mls/hr IV.SIG UNSCH PRN PRN Reason: For Potassium 3.3 - 3.5 mEq/L Potassium Chloride (Kcl 20 Meq Premix Inj) 20 meq in 100 mls @ 50 mls/hr IV.SIG Q2H PRN PRN Reason: For Potassium 2.8 - 3.2 mEq/L Sodium Phosphate 30 mmol/ (Sodium Chloride) 260 mls @ 42 mls/hr IV.SIG UNSCH PRN PRN Reason: For Phosphorus < 2.5 mg/dL Magnesium Sulfate 2 gm/ Sodium (Chloride) 100 mls @ 50 mls/hr IV.SIG UNSCH PRN PRN Reason: For Magnesium 1.2 - 1.6 mg/dL Potassium Phosphate 30 mmol/ (Sodium Chloride) 260 mls @ 42 mls/hr IV.SIG UNSCH PRN PRN Reason: SEE LABEL COMMENTS Insulin Aspart (Novolog Insulin Correctional Sugar Inj) 0 unit SQ Q6HR G[facility]O; Protocol Labetalol HCl (Trandate Inj) 5 mg IV.PUSH Q4H PRN PRN Reason: BP 210/110 Magnesium Oxide (Mag-Ox) 800 mg PO UNSCH PRN PRN Reason: For Magnesium 1.2 - 1.6 mg/dL Morphine Sulfate (Morphine Inj) 1 mg IV.PUSH Q4H PRN PRN Reason: DYSPNEA Potassium Bicarb/Potassium Chloride (K-Lyte Cl Eff) 50 meq PO UNSCH PRN PRN Reason: For Potassium 3.3 - 3.5 mEq/L Potassium Phosphate (K-Phos Original) 2,000 mg PO Q4H PRN PRN Reason: Phosphorus Less Than 2.5 mg/dL Potassium Phosphate (K-Phos Original) 2,000 mg PO UNSCH PRN PRN Reason: SEE LABEL COMMENTS Pravastatin Sodium (Pravachol) 40 mg PO DAILY [facility] Last Admin: 08/29/18 09:23 Dose: 40 mg Sulfasalazine (Azulfidine) 500 mg PO Q6HR [facility] Last Admin: 08/29/18 06:11 Dose: 500 mg Allergies/Adverse Reactions: Allergies Allergy/AdvReac Type Severity Reaction Status Date / Time adhesive Allergy Severe TAPE = Verified 06/20/17 15:33 RASH & WELTS penicillin G Allergy Severe Rash Verified 06/20/17 15:33 Physical Exam Vital signs: Vital Signs 08/28/18 17:38 08/28/18 17:45 08/28/18 17:53 Temperature 98.5 F 98.3 F Pulse Rate 104 H 96 H Respiratory Rate 18 18 Blood Pressure 176/99 H 174/99 H Pulse Oximetry 91 L 94 L 93 L 08/28/18 18:46 08/28/18 19:45 08/28/18 21:00 Temperature 97.9 F Pulse Rate 73 87 78 Respiratory Rate 18 18 22 Blood Pressure 186/98 H 188/100 H 188/99 H Pulse Oximetry 94 L 97 08/29/18 00:00 08/29/18 04:00 08/29/18 08:00 Temperature 98.3 F 98.4 F 97.9 F Pulse Rate 72 72 72 Respiratory Rate 20 22 16 Blood Pressure 171/92 H 163/91 H 172/94 H Pulse Oximetry 98 100 100 08/29/18 09:38 08/29/18 13:25 08/29/18 13:56 Temperature 98.1 F Pulse Rate 87 87 Respiratory Rate 12 Blood Pressure 177/93 H Pulse Oximetry 98 99 08/29/18 15:32 Temperature Pulse Rate 50 L Respiratory Rate 18 Blood Pressure Pulse Oximetry 99 Intake & Output 08/28/18 08/29/18 08/29/18 18:59 06:59 18:59 Intake Total 100 / 100 1801 / 1801 Output Total 550 / 550 150 / 150 Balance -450 / -450 1651 / 1651 Weight 74.5 kg 74 kg Intake: IV 501 / 501 Heparin/NS PF Inj 500 ML @ 0 500 / 500 mls/hr .ROUTE .[facility]K-[facility] ONE Rx#: [id number] Nitroglycerin Drip Premix 50 mg 1 / 1 In 250 ml @ 0 mls/hr .ROUTE . [facility] Rx#:[id number] Oral 100 / 100 Anesthesia Amount 1300 / 1300 Output: Urine 550 / 550 Estimated Blood Loss 50 / 50 Urine Amount (Catheter) 100 / 100 Indwelling Urethral Catheter 100 / 100 Other: Date of Last Bowel Movement 08/28/18 08/28/18 Weight On Admission 74 kg - Routine Neurological Exam alert, speech normal Cn intact MOTOR equal strength BUE and BLE - Urinary Catheter Management Indwelling Urethral Catheter Cath placed during this visit: yes Reason for continuing: Hourly intake/output Insertion date: 08/29/18 Insertion time: 10:30 Objective Radiology Results: MRI brain--no evidence for acute cva Laboratory Results - last 24 hr 08/28/18 08/28/18 08/28/18 17:00 17:00 17:00 WBC 13.5 H RBC 4.27 L Hgb 11.8 L POC Hgb (Calc) 11.9 L Hct 35.1 L POC Hct 35.0 L MCV 82.1 MCH 27.5 MCHC 33.5 RDW 16.7 Plt Count 439 MPV 7.7 Neut % (Auto) 68.2 Lymph % (Auto) 21.5 Young % (Auto) 9.6 H Eos % (Auto) 0.1 Baso % (Auto) 0.6 Neut # (Auto) 9.2 H Lymph # (Auto) 2.9 Young # (Auto) 1.3 H Eos # (Auto) 0.0 Baso # (Auto) 0.1 WBC Differential . Differential Comment Auto diff final PT 10.0 INR 1.0 APTT 17.8 L POC Sodium 139 Sodium 141 POC Potassium 3.1 L Potassium 3.2 L POC Chloride 101 L Chloride 104 Carbon Dioxide 22.5 Anion Gap 15 POC BUN 14 BUN 15 Creatinine 1.12 POC Creatinine 1.0 Estimated GFR 66 L POC Glucose 161 H Random Glucose 155 H Calcium 8.5 Phosphorus Magnesium Total Bilirubin AST ALT Alkaline Phosphatase Total Creatine Kinase 40 Troponin I Less than 0.02 L B-Natriuretic Peptide Total Protein Albumin Triglycerides Cholesterol LDL Cholesterol, Calc HDL Cholesterol Cholesterol/HDL Ratio Urine Color Urine Clarity Urine pH Ur Specific [place] Urine Protein Urine Glucose (UA) Urine Ketones Urine Occult Blood Urine Nitrate Urine Bilirubin Urine Urobilinogen Ur Leukocyte Esterase Urine RBC Urine WBC Urine Mucus Micro UA Comment Ur Microscopic Review Urine Culture Comments Urine Opiates Screen Ur Barbiturates Screen Ur Amphetamines Screen U Benzodiazepines Scrn Urine Cocaine Screen U Cannabinoids Screen Blood Type Antibody Screen 08/28/18 08/28/18 08/28/18 17:00 17:00 17:59 WBC RBC Hgb POC Hgb (Calc) Hct POC Hct MCV MCH MCHC RDW Plt Count MPV Neut % (Auto) Lymph % (Auto) Young % (Auto) Eos % (Auto) Baso % (Auto) Neut # (Auto) Lymph # (Auto) Young # (Auto) Eos # (Auto) Baso # (Auto) WBC Differential Differential Comment PT INR APTT POC Sodium Sodium POC Potassium Potassium POC Chloride Chloride Carbon Dioxide Anion Gap POC BUN BUN Creatinine POC Creatinine Estimated GFR POC Glucose Random Glucose Calcium Phosphorus Magnesium Total Bilirubin AST ALT Alkaline Phosphatase Total Creatine Kinase Troponin I B-Natriuretic Peptide 41 Total Protein Albumin Triglycerides 172 H Cholesterol 205 H LDL Cholesterol, Calc 109 H HDL Cholesterol 61.5 H Cholesterol/HDL Ratio 3.33 Urine Color Urine Clarity Urine pH Ur Specific [place] Urine Protein Urine Glucose (UA) Urine Ketones Urine Occult Blood Urine Nitrate Urine Bilirubin Urine Urobilinogen Ur Leukocyte Esterase Urine RBC Urine WBC Urine Mucus Micro UA Comment Ur Microscopic Review Urine Culture Comments Urine Opiates Screen Neg Ur Barbiturates Screen Neg Ur Amphetamines Screen Neg U Benzodiazepines Scrn Neg Urine Cocaine Screen Neg U Cannabinoids Screen Neg Blood Type Antibody Screen 08/28/18 08/28/18 08/28/18 17:59 19:31 20:25 WBC RBC Hgb POC Hgb (Calc) Hct POC Hct MCV MCH MCHC RDW Plt Count MPV Neut % (Auto) Lymph % (Auto) Young % (Auto) Eos % (Auto) Baso % (Auto) Neut # (Auto) Lymph # (Auto) Young # (Auto) Eos # (Auto) Baso # (Auto) WBC Differential Differential Comment PT INR APTT POC Sodium Sodium POC Potassium Potassium POC Chloride Chloride Carbon Dioxide Anion Gap POC BUN BUN Creatinine POC Creatinine Estimated GFR POC Glucose 142 H Random Glucose Calcium Phosphorus Magnesium Total Bilirubin AST ALT Alkaline Phosphatase Total Creatine Kinase Troponin I B-Natriuretic Peptide Total Protein Albumin Triglycerides Cholesterol LDL Cholesterol, Calc HDL Cholesterol Cholesterol/HDL Ratio Urine Color Yellow Urine Clarity Clear Urine pH 6.0 Ur Specific [place] Greater than 1.060 H Urine Protein Negative Urine Glucose (UA) Negative Urine Ketones 20 Urine Occult Blood Negative Urine Nitrate Negative Urine Bilirubin Negative Urine Urobilinogen Less than 2 Ur Leukocyte Esterase Negative Urine RBC Less than 1 Urine WBC Less than 1 Urine Mucus Few H Micro UA Comment Cath-culture not ind Ur Microscopic Review Not Reportable Urine Culture Comments Cath-cult not ind Urine Opiates Screen Ur Barbiturates Screen Ur Amphetamines Screen U Benzodiazepines Scrn Urine Cocaine Screen U Cannabinoids Screen Blood Type B Positive Antibody Screen Negative 08/28/18 08/29/18 08/29/18 22:38 03:46 03:46 WBC 7.4 RBC 3.65 L Hgb 10.4 L 10.0 L POC Hgb (Calc) Hct 31.6 L 30.6 L POC Hct MCV 83.9 MCH 27.3 MCHC 32.5 RDW 16.7 Plt Count 374 MPV 6.9 L Neut % (Auto) 71.7 H Lymph % (Auto) 14.4 Young % (Auto) 12.5 H Eos % (Auto) 0.8 Baso % (Auto) 0.6 Neut # (Auto) 5.3 Lymph # (Auto) 1.1 Young # (Auto) 0.9 Eos # (Auto) 0.1 Baso # (Auto) 0.0 WBC Differential . Differential Comment Auto diff final PT INR APTT POC Sodium Sodium 141 POC Potassium Potassium 2.7 L* POC Chloride Chloride 105 Carbon Dioxide 28.1 Anion Gap 8 POC BUN BUN 14 Creatinine 0.94 POC Creatinine Estimated GFR 81 L POC Glucose Random Glucose 112 H Calcium 7.9 L Phosphorus Magnesium 1.7 Total Bilirubin 0.3 AST 9 L ALT 17 Alkaline Phosphatase 64 Total Creatine Kinase Troponin I B-Natriuretic Peptide Total Protein 5.2 L Albumin 2.7 L Triglycerides Cholesterol LDL Cholesterol, Calc HDL Cholesterol Cholesterol/HDL Ratio Urine Color Urine Clarity Urine pH Ur Specific [place] Urine Protein Urine Glucose (UA) Urine Ketones Urine Occult Blood Urine Nitrate Urine Bilirubin Urine Urobilinogen Ur Leukocyte Esterase Urine RBC Urine WBC Urine Mucus Micro UA Comment Ur Microscopic Review Urine Culture Comments Urine Opiates Screen Ur Barbiturates Screen Ur Amphetamines Screen U Benzodiazepines Scrn Urine Cocaine Screen U Cannabinoids Screen Blood Type Antibody Screen 08/29/18 08/29/18 08/29/18 08:17 14:24 14:24 WBC 12.1 H D RBC 3.49 L Hgb 9.5 L POC Hgb (Calc) Hct 29.7 L POC Hct MCV 85.0 MCH 27.2 MCHC 32.0 RDW 16.8 Plt Count 351 MPV 6.6 L Neut % (Auto) 96.4 H Lymph % (Auto) 2.2 L Young % (Auto) 1.2 Eos % (Auto) 0.0 Baso % (Auto) 0.2 Neut # (Auto) 11.6 H Lymph # (Auto) 0.3 L Young # (Auto) 0.1 Eos # (Auto) 0.0 Baso # (Auto) 0.0 WBC Differential . Differential Comment Auto diff final PT INR APTT POC Sodium Sodium 141 POC Potassium Potassium 4.1 D POC Chloride Chloride 107 Carbon Dioxide 25.6 Anion Gap 8 POC BUN BUN 13 Creatinine 0.68 POC Creatinine Estimated GFR Greater than 89 POC Glucose 141 H Random Glucose 196 H Calcium 7.3 L* Phosphorus 2.5 Magnesium 1.6 Total Bilirubin AST ALT Alkaline Phosphatase Total Creatine Kinase Troponin I B-Natriuretic Peptide Total Protein Albumin Triglycerides Cholesterol LDL Cholesterol, Calc HDL Cholesterol Cholesterol/HDL Ratio Urine Color Urine Clarity Urine pH Ur Specific [place] Urine Protein Urine Glucose (UA) Urine Ketones Urine Occult Blood Urine Nitrate Urine Bilirubin Urine Urobilinogen Ur Leukocyte Esterase Urine RBC Urine WBC Urine Mucus Micro UA Comment Ur Microscopic Review Urine Culture Comments Urine Opiates Screen Ur Barbiturates Screen Ur Amphetamines Screen U Benzodiazepines Scrn Urine Cocaine Screen U Cannabinoids Screen Blood Type Antibody Screen Review/Management - Diagnosis (1) CVA (cerebral vascular accident) Code(s): I63.9 - Cerebral infarction, unspecified Status: Acute Current Visit: Yes - Review/Management Plan: right hemisphere TIA secondary to right carotid stenosis. He is stable s/p right carotid endarterectomy
[2018-08-29 15:56] LABS: Albumin 2.6 g/dL (3.4-5.0); Calcium-Albumin Corrected 8.4 mg/dL (8.5-10.1)
--- NOTE | 2018-08-29 18:52 | ECG ---
Date Performed: 08/28/2018 Time Performed: 17:22:00 PTAGE: 62 years EKG: SINUS TACHYCARDIA WITH OCCASIONAL SUPRAVENTRICULAR PREMATURE COMPLEXES NONSPECIFIC T-WAVE A BNORMALITY ABNORMAL RHYTHM ECG INTERPRETATION BASED ON A DEFAULT AGE OF 40 YEARS PREVIOUS TRACING : 09/15/2015 05.44 Since the previous tracing, no significant change not ed DOCTOR: Sj Pollack Interpretating Date/Time 08/29/2018 18:51:52
--- NOTE | 2018-08-29 21:33 | ECHRPT ---
Indication: CVA/TIA CONCLUSIONS Normal left ventricular size. Wall thickness is normal. The left ventricular systolic function is normal with an estimated ejection fraction in the range of 55-60%. No regional wall motion abnormalities are present. Trace mitral valve regurgitation. There is trace tricuspid valve regurgitation. The estimated pulmonary arterial pressure is 32 mmHg. BP: 133 / 59 HR: 52 Rhythm: MEASUREMENTS (Male / Female) Normal Values Technical Quality:Fair 2D ECHO LV Diastolic Diameter PLAX 4.8 cm 4.2 - 5.9 / 3.9 - 5.3 cm LV Systolic Diameter PLAX 3.1 cm IVS Diastolic Thickness 1.1 cm 0.6 - 1.0 / 0.6 - 0.9 cm LVPW Diastolic Thickness 1.1 cm 0.6 - 1.0 / 0.6 - 0.9 cm LV Relative Wall Thickness 0.5 RV Internal Dim ED PLAX 2.7 cm LVOT Diameter 2.2 cm Aortic Root Diameter 3.1 cm LA Systolic Diameter LX 3.3 cm 3.0 - 4.0 / 2.7 - 3.8 cm DOPPLER AV Peak Velocity 131.0 cm/s AV Peak Gradient 6.9 mmHg LVOT Peak Velocity 94.8 cm/s LVOT Peak Gradient 3.6 mmHg AV Area Cont Eq pk 2.8 cm Mitral E Point Velocity 68.6 cm/s Mitral A Point Velocity 54.3 cm/s Mitral E to A Ratio 1.3 LV E' Lateral Velocity 9.9 cm/s Mitral E to LV E' Lateral Ratio 6.9 LV E' Septal Velocity 9.2 cm/s Mitral E to LV E' Septal Ratio 7.5 TR Peak Velocity 235.5 cm/s TR Peak Gradient 22.2 mmHg Right Atrial Pressure 10.0 mmHg Pulmonary Artery Systolic Pressu 32.2 mmHg Right Ventricular Systolic Press 32.2 mmHg PV Peak Velocity 93.7 cm/s PV Peak Gradient 3.5 mmHg FINDINGS LEFT VENTRICLE Normal left ventricular size. Wall thickness is normal. The left ventricular systolic function is normal with an estimated ejection fraction in the range of 55-60%. No regional wall motion abnormalities are present. RIGHT VENTRICLE Normal right ventricular size and systolic function. LEFT ATRIUM The left atrial size is normal. RIGHT ATRIUM The right atrial size is normal. ATRIAL SEPTUM Normal atrial septal thickness without atrial level shunting by limited color doppler interrogation. AORTA The aortic root and proximal ascending aorta are normal in size on limited imaging. MITRAL VALVE Trace mitral valve regurgitation. AORTIC VALVE Trileaflet aortic valve. No aortic valve stenosis or regurgitation. TRICUSPID VALVE There is trace tricuspid valve regurgitation. The estimated pulmonary arterial pressure is 32 mmHg. PULMONARY VALVE No pulmonary valve regurgitation or stenosis. VESSELS The inferior vena cava is normal in size. PERICARDIUM No pericardial effusion. Edd Whyte MD (Electronically Signed) Final Date:29 August 2018 21:32
[2018-08-30] MEDS: sulfaSALAzine 500 MG Tablet PO SCH ×4 (00:15→18:04)
[2018-08-30 05:26] LABS: Baso % (Auto) 0.1 % (0.0-2.0); Eos % (Auto) 0.1 % (0.0-4.0); Hematocrit 27.2 % (39.0-51.0); Hemoglobin 8.9 gm/dL (13.0-17.0); Lymph # (Auto) 1.4 th/mm3 (1.0-4.8); Lymph % (Auto) 15.1 % (9.0-44.0); Mean Corpuscular HGB Conc 32.6 % (32.0-36.0); Mean Corpuscular Hemoglobin 27.6 pg (27.0-34.0); Mean Corpuscular Volume 84.7 fL (80.0-100.0); Mono # (Auto) 1.2 th/mm3 (0.0-0.9); Mono % (Auto) 13.5 % (0.0-8.0); Neut # (Auto) 6.5 th/mm3 (1.8-7.7); Neut % (Auto) 71.2 % (16.0-70.0); Platelet Count 310 th/mm3 (150-450); Red Blood Count 3.22 mil/mm3 (4.50-5.90); Red Cell Distribution Width 16.5 % (11.6-17.2); White Blood Count 9.1 th/mm3 (4.0-11.0)
[2018-08-30 05:53] LABS: Anion Gap 8 meq/L (5-15); Blood Urea Nitrogen 10 mg/dL (7-18); Calcium 7.8 mg/dL (8.5-10.1); Carbon Dioxide 25.6 meq/L (21.0-32.0); Chloride 108 meq/L (98-107); Glomerular Filtration Rate Greater Than 89 mL/min (>89); Glucose,Random 132 mg/dL (74-106); Potassium 3.5 meq/L (3.5-5.1); Sodium 142 meq/L (136-145)
[2018-08-30] MEDS: Insulin NovoLOG Aspart Correctional Sugar Inj SQ SCH ×3 (06:10→18:04)
--- NOTE | 2018-08-30 07:43 | P.PNVS ---
Subjective Post Op Day #: 1 Subjective/Hospital Course: Doing well, kobi CLD Pain controlled Objective Vital Signs / I&O: Vital Signs 08/29/18 08:00 08/29/18 09:38 08/29/18 13:25 Temperature 97.9 F Pulse Rate 72 87 Respiratory Rate 16 Blood Pressure 172/94 H Pulse Oximetry 100 98 08/29/18 13:56 08/29/18 15:32 08/29/18 16:05 Temperature 98.1 F 97.9 F Pulse Rate 87 50 L 53 L Respiratory Rate 12 18 14 Blood Pressure 177/93 H 110/58 L Pulse Oximetry 99 99 98 08/29/18 19:18 08/29/18 21:19 08/30/18 00:30 Temperature 98.3 F 98.4 F Pulse Rate 51 L 57 L 68 Respiratory Rate 16 14 16 Blood Pressure 96/50 L 102/49 L Pulse Oximetry 99 99 99 08/30/18 03:56 08/30/18 04:00 Temperature 98.2 F Pulse Rate 54 L 71 Respiratory Rate 12 16 Blood Pressure 109/59 L Pulse Oximetry 99 Intake & Output 08/29/18 08/30/18 08/30/18 18:59 06:59 18:59 Intake Total 2041 / 2041 480 / 480 Output Total 365 / 365 425 / 425 Balance 1676 / 1676 55 / 55 Weight 74 kg Intake: IV 501 / 501 Heparin/NS PF Inj 500 ML @ 0 500 / 500 mls/hr .ROUTE .STK-MED ONE Rx#: [id number] Nitroglycerin Drip Premix 50 mg 1 / 1 In 250 ml @ 0 mls/hr .ROUTE . STK-MED ONE Rx#:[id number] Oral 240 / 240 480 / 480 Anesthesia Amount 1300 / 1300 Output: Estimated Blood Loss 50 / 50 Urine Amount (Catheter) 250 / 250 410 / 410 Indwelling Urethral Catheter 250 / 250 410 / 410 Wound Drainage 65 / 15 / 15 Right Lower Neck MAXIMILIANO Drain Other: Date of Last Bowel Movement 08/28/18 Exam: right neck wound CDI MAXIMILIANO with minimal output left sided weakness resolved Laboratory Results - last 24 hr 08/29/18 08/29/18 08/29/18 03:46 08:17 14:24 WBC 12.1 H D RBC 3.49 L Hgb 9.5 L Hct 29.7 L MCV 85.0 MCH 27.2 MCHC 32.0 RDW 16.8 Plt Count 351 MPV 6.6 L Neut % (Auto) 96.4 H Lymph % (Auto) 2.2 L [place] % (Auto) 1.2 Eos % (Auto) 0.0 Baso % (Auto) 0.2 Neut # (Auto) 11.6 H Lymph # (Auto) 0.3 L [place] # (Auto) 0.1 Eos # (Auto) 0.0 Baso # (Auto) 0.0 WBC Differential . Differential Comment Auto diff final Sodium Potassium Chloride Carbon Dioxide Anion Gap BUN Creatinine Estimated GFR POC Glucose 141 H Random Glucose Hemoglobin A1c 6.0 Calcium Calcium Adj for Albumin Phosphorus Magnesium Albumin 08/29/18 08/29/18 08/29/18 14:24 17:37 23:35 WBC RBC Hgb Hct MCV MCH MCHC RDW Plt Count MPV Neut % (Auto) Lymph % (Auto) [place] % (Auto) Eos % (Auto) Baso % (Auto) Neut # (Auto) Lymph # (Auto) [place] # (Auto) Eos # (Auto) Baso # (Auto) WBC Differential Differential Comment Sodium 141 Potassium 4.1 D Chloride 107 Carbon Dioxide 25.6 Anion Gap 8 BUN 13 Creatinine 0.68 Estimated GFR Greater than 89 POC Glucose 192 H 232 H Random Glucose 196 H Hemoglobin A1c Calcium 7.3 L* Calcium Adj for Albumin 8.4 L Phosphorus 2.5 Magnesium 1.6 Albumin 2.6 L 08/30/18 08/30/18 04:54 04:54 WBC 9.1 RBC 3.22 L Hgb 8.9 L Hct 27.2 L MCV 84.7 MCH 27.6 MCHC 32.6 RDW 16.5 Plt Count 310 MPV 7.0 Neut % (Auto) 71.2 H Lymph % (Auto) 15.1 [place] % (Auto) 13.5 H Eos % (Auto) 0.1 Baso % (Auto) 0.1 Neut # (Auto) 6.5 Lymph # (Auto) 1.4 [place] # (Auto) 1.2 H Eos # (Auto) 0.0 Baso # (Auto) 0.0 WBC Differential . Differential Comment Auto diff final Sodium 142 Potassium 3.5 Chloride 108 H Carbon Dioxide 25.6 Anion Gap 8 BUN 10 Creatinine 0.74 Estimated GFR Greater than 89 POC Glucose Random Glucose 132 H Hemoglobin A1c Calcium 7.8 L Calcium Adj for Albumin Phosphorus Magnesium Albumin Assessment and Plan - Assessment (1) Symptomatic stenosis of right carotid artery Code(s): I65.21 - Occlusion and stenosis of right carotid artery Status: Acute (2) CVA (cerebral vascular accident) Code(s): I63.9 - Cerebral infarction, unspecified Status: Acute - Plan S/P CEA POD 1 1. DC Adeel VIERA Aline 2. Diet as kobi 3. Stable for DC from vascular surgery standpoint. Will schedule FU in 4 weeks [facility] [phone]
--- NOTE | 2018-08-30 10:05 | P.PNCC ---
Subjective Subjective Remarks/Hospital Course: The patient is a 62-year-old male with a past medical history of hypertension, diabetes mellitus, coronary artery disease, Crohn disease, who was admitted on 08/28/2018 on the Family Medicine Service for left-sided weakness and right hemispheric stroke. The patient was not a candidate for TPA at that time due to a GI bleed. CT brain on arrival showed no acute intracranial findings. CT of the neck showed dense calcified plaque at the right carotid bulb with significant stenosis. The patient was seen by vascular surgery and underwent a right carotid endarterectomy today by Dr. Zarate. The patient had 1300 mL of crystalloids in the OR and urine output of 100 mL. Estimated blood loss: 50 mL. He was transferred to CV ICU postop and started on nitro drip, currently at 40 mcg. Chest x-ray yesterday showed no acute abnormalities. When seen, the patient is awake, alert, lying in bed, in no acute respiratory distress. He is on 4 liters oxygen with saturation of 99%. The patient is awake, alert, lying in bed, in no acute respiratory distress. He denies any chest pain or shortness of breath. 08/30 Patient is off Nitro drip. Awake and alert. Afebrile. Objective Vital Signs / I&O: Vital Signs 08/29/18 13:25 08/29/18 13:56 08/29/18 15:32 Temperature 98.1 F Pulse Rate 87 87 50 L Respiratory Rate 12 18 Blood Pressure 177/93 H Pulse Oximetry 99 99 08/29/18 16:05 08/29/18 19:18 08/29/18 21:19 Temperature 97.9 F 98.3 F Pulse Rate 53 L 51 L 57 L Respiratory Rate 14 16 14 Blood Pressure 110/58 L 96/50 L Pulse Oximetry 98 99 99 08/30/18 00:30 08/30/18 03:56 08/30/18 04:00 Temperature 98.4 F 98.2 F Pulse Rate 68 54 L 71 Respiratory Rate 16 12 16 Blood Pressure 102/49 L 109/59 L Pulse Oximetry 99 99 08/30/18 07:00 08/30/18 07:48 08/30/18 08:00 Temperature 98.0 F Pulse Rate 63 62 Respiratory Rate 16 Blood Pressure 109/60 Pulse Oximetry 99 95 Intake & Output 08/29/18 08/30/1818 18:59 06:59 18:59 Intake Total 204 / 2041 480 / 480 Output Total 365 / 365 425 / 425 Balance 1676 / 1676 55 / 55 Weight 74 kg Intake: IV 501 / 501 Heparin/NS PF Inj 500 ML @ 0 500 / 500 mls/hr .ROUTE .STK-MED ONE Rx#: [id number] Nitroglycerin Drip Premix 50 mg 1 / 1 In 250 ml @ 0 mls/hr .ROUTE . STK-MED ONE Rx#:[id number] Oral 240 / 240 480 / 480 Anesthesia Amount 1300 / 1300 Output: Estimated Blood Loss 50 / 50 Urine Amount (Catheter) 250 / 250 410 / 410 Indwelling Urethral Catheter 250 / 250 410 / 410 Wound Drainage Right Lower Neck MAXIIMLIANO Drain Other: Date of Last Bowel Movement 08/28/18 Result Diagrams: 08/30/18 04:54 08/30/18 04:54 Other Results: Laboratory Results - last 12 hr 08/29/18 08/29/18 08/30/18 03:46 23:35 04:54 WBC 9.1 RBC 3.22 L Hgb 8.9 L Hct 27.2 L MCV 84.7 MCH 27.6 MCHC 32.6 RDW 16.5 Plt Count 310 MPV 7.0 Neut % (Auto) 71.2 H Lymph % (Auto) 15.1 [place] % (Auto) 13.5 H Eos % (Auto) 0.1 Baso % (Auto) 0.1 Neut # (Auto) 6.5 Lymph # (Auto) 1.4 [place] # (Auto) 1.2 H Eos # (Auto) 0.0 Baso # (Auto) 0.0 WBC Differential . Differential Comment Auto diff final Sodium Potassium Chloride Carbon Dioxide Anion Gap BUN Creatinine Estimated GFR POC Glucose 232 H Random Glucose Hemoglobin A1c 6.0 Calcium 08/30/18 04:54 WBC RBC Hgb Hct MCV MCH MCHC RDW Plt Count MPV Neut % (Auto) Lymph % (Auto) [place] % (Auto) Eos % (Auto) Baso % (Auto) Neut # (Auto) Lymph # (Auto) [place] # (Auto) Eos # (Auto) Baso # (Auto) WBC Differential Differential Comment Sodium 142 Potassium 3.5 Chloride 108 H Carbon Dioxide 25.6 Anion Gap 8 BUN 10 Creatinine 0.74 Estimated GFR Greater than 89 POC Glucose Random Glucose 132 H Hemoglobin A1c Calcium 7.8 L Imaging: Head MRI 08/28/18 00:00 CONCLUSION: 1. No acute intracranial abnormality is identified. There are no findings to indicate recent ischemia. 2. Chronic changes include mild generalized atrophy and mild periventricular and subcortical white matter signal change characteristic of chronic microvascular ischemia. Chest X-Ray 08/28/18 17:00 CONCLUSION: No acute abnormality is seen. Head CT 08/28/18 17:00 CONCLUSION: Negative noncontrast CT examination the head. Report was called by Dr. Llanos to Dr. Watts at 5:19 PM Head CTA 08/28/18 17:00 CONCLUSION: 1. No large vessel occlusion is identified. There is mild to moderate calcified atherosclerotic plaque in the intracranial aspect of the internal carotid arteries bilaterally without high-grade stenosis. 2. 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 These findings were telephoned to Dr. Shaikh on 08/28/2018 5:30 PM. Neck CTA 08/28/18 17:00 CONCLUSION: 1. Dense calcified plaque at the right carotid bulb region with a possible significant stenosis with decreased contrast in this region. The evaluation this area is limited secondary to the dense calcification and suspected motion blurring in this region likely from swallowing. One could consider further evaluating this region with a repeat CTA at some point versus an MRA. 2. Possible occlusion versus very diminished flow in the mid to upper aspect of the left vertebral artery. There is contrast seen within the proximal left vertebral artery and in the left vertebral artery at the C1 level. Objective Remarks: GENERAL: Patient is sitting in in bed in NAD. Afebrile. SKIN: Warm and dry. HEAD: Normocephalic. EYES: No scleral icterus. No injection or drainage. NECK: Supple, trachea midline. No JVD or lymphadenopathy. CARDIOVASCULAR: Regular rate and rhythm without murmurs, gallops, or rubs. RESPIRATORY: Breath sounds equal bilaterally. No accessory muscle use. GASTROINTESTINAL: Abdomen soft, non-tender, nondistended. MUSCULOSKELETAL: No cyanosis, or edema. Neuro: Awake and alert . Assessment and Plan - Assessment and Plan Plan: 1. S/p Rt CEA 2. Right-sided CVA 3. Hypertension. 4. Coronary artery disease. 5. Questionable gastrointestinal bleed. 6. Diabetes mellitus. Plan Neuro: Monitor neuro status and avoid any sedatives. Morphine 1 mg every 4 hours p.r.n. for pain. Pulm: Continue with oxygen and maintain sats >92%. Bronchodilators. CXR: no acute disease. CV: Off nitro drip, monitor HR and BP and maintain MAP>65 mmHg. : Monitor renal function, I's and O's. Electrolyte replacement per protocol. W GI: on PO diet Protonix 40 mg daily for GI prophylaxis. ID: Monitor for signs of infection(ever and WBC). Tsang culture if spikes a fever. Endo: Sliding scale insulin for glycemic control. Heme: Monitor CBC. GI prophylaxis with Protonix 40 mg daily DVT prophylaxis with SCD Will sign off Level 2
--- NOTE | 2018-08-30 10:50 | P.PNFP ---
Subjective Interval history: Patient seen and examined today with family at bedside. Patient reports significant improvement in left-sided weakness. Continues to endorse some mild right sided blurred vision. Denies nausea, vomiting, fever, chills, abdominal pain, chest pain, lightheadedness, dizziness. No acute events overnight. No other complaints today. <Aaron Mason - 08/30/18 10:50> Results - Labs Result diagrams: 08/31/18 08:23 08/31/18 08:23 <Rodrick Cain - 08/31/18 13:49> Abnormal lab results 08/30/18 08/30/18 08/31/18 Range/Units 17:26 23:10 07:28 RBC (4.50-5.90) mil/mm3 Hgb (13.0-17.0) gm/dL Hct (39.0-51.0) % Neut % (Auto) (16.0-70.0) % Lymph % (Auto) (9.0-44.0) % [place] % (Auto) (0.0-8.0) % Neut # (Auto) (1.8-7.7) th/mm3 Lymph # (Auto) (1.0-4.8) th/mm3 [place] # (Auto) (0.0-0.9) th/mm3 Potassium (3.5-5.1) meq/L POC Glucose 198 H 158 H 123 H (68-110) mg/dl Random Glucose (74-106) mg/dL Calcium (8.5-10.1) mg/dL 08/31/18 08/31/18 08/31/18 Range/Units 08:23 08:23 11:11 RBC 3.87 L (4.50-5.90) mil/mm3 Hgb 10.5 L (13.0-17.0) gm/dL Hct 33.0 L (39.0-51.0) % Neut % (Auto) 82.3 H (16.0-70.0) % Lymph % (Auto) 7.9 L (9.0-44.0) % Jack % (Auto) 9.2 H (0.0-8.0) % Neut # (Auto) 8.7 H (1.8-7.7) th/mm3 Lymph # (Auto) 0.8 L (1.0-4.8) th/mm3 [place] # (Auto) 1.0 H (0.0-0.9) th/mm3 Potassium 3.4 L (3.5-5.1) meq/L POC Glucose 138 H (68-110) mg/dl Random Glucose 158 H (74-106) mg/dL Calcium 8.3 L (8.5-10.1) mg/dL Short CBC 08/31/18 Range/Units 08:23 WBC 10.6 (4.0-11.0) th/mm3 Hgb 10.5 L (13.0-17.0) gm/dL Hct 33.0 L (39.0-51.0) % Plt Count 372 (150-450) th/mm3 BMP 08/31/18 08:23 Sodium 140 Potassium 3.4 L Chloride 105 Carbon Dioxide 26.4 BUN 8 Creatinine 0.79 Calcium 8.3 L <Rodrick Cain - 08/31/18 13:49> Abnormal lab results 08/29/18 08/29/18 08/29/18 Range/Units 14:24 14:24 17:37 WBC 12.1 H D (4.0-11.0) th/mm3 RBC 3.49 L (4.50-5.90) mil/mm3 Hgb 9.5 L (13.0-17.0) gm/dL Hct 29.7 L (39.0-51.0) % MPV 6.6 L (7.0-11.0) fL Neut % (Auto) 96.4 H (16.0-70.0) % Lymph % (Auto) 2.2 L (9.0-44.0) % [place] % (Auto) (0.0-8.0) % Neut # (Auto) 11.6 H (1.8-7.7) th/mm3 Lymph # (Auto) 0.3 L (1.0-4.8) th/mm3 [place] # (Auto) (0.0-0.9) th/mm3 Chloride (98-107) meq/L POC Glucose 192 H (68-110) mg/dl Random Glucose 196 H (74-106) mg/dL Calcium 7.3 L* (8.5-10.1) mg/dL Calcium Adj for Albumin 8.4 L (8.5-10.1) mg/dL Albumin 2.6 L (3.4-5.0) g/dL 08/29/18 08/30/18 08/30/18 Range/Units 23:35 04:54 04:54 WBC (4.0-11.0) th/mm3 RBC 3.22 L (4.50-5.90) mil/mm3 Hgb 8.9 L (13.0-17.0) gm/dL Hct 27.2 L (39.0-51.0) % MPV (7.0-11.0) fL Neut % (Auto) 71.2 H (16.0-70.0) % Lymph % (Auto) (9.0-44.0) % [place] % (Auto) 13.5 H (0.0-8.0) % Neut # (Auto) (1.8-7.7) th/mm3 Lymph # (Auto) (1.0-4.8) th/mm3 [place] # (Auto) 1.2 H (0.0-0.9) th/mm3 Chloride 108 H (98-107) meq/L POC Glucose 232 H (68-110) mg/dl Random Glucose 132 H (74-106) mg/dL Calcium 7.8 L (8.5-10.1) mg/dL Calcium Adj for Albumin (8.5-10.1) mg/dL Albumin (3.4-5.0) g/dL Short CBC 08/29/18 08/30/18 Range/Units 14:24 04:54 WBC 12.1 H D 9.1 (4.0-11.0) th/mm3 Hgb 9.5 L 8.9 L (13.0-17.0) gm/dL Hct 29.7 L 27.2 L (39.0-51.0) % Plt Count 351 310 (150-450) th/mm3 BMP 08/29/18 08/30/18 14:24 04:54 Sodium 141 142 Potassium 4.1 D 3.5 Chloride 107 108 H Carbon Dioxide 25.6 25.6 BUN 13 10 Creatinine 0.68 0.74 Calcium 7.3 L* 7.8 L Liver Function 08/29/18 Range/Units 14:24 Albumin 2.6 L (3.4-5.0) g/dL <Aaron Mason - 08/30/18 10:50> Physical Exam Vital signs: Vital Signs 08/30/18 15:00 08/30/18 19:00 08/30/18 20:00 Temperature 98.2 F 98.5 F Pulse Rate 70 80 Respiratory Rate 18 17 Blood Pressure 118/68 160/76 H Pulse Oximetry 96 97 97 08/30/18 23:00 08/31/18 03:00 08/31/18 08:25 Temperature Pulse Rate 78 71 Respiratory Rate 18 18 Blood Pressure 132/70 132/70 Pulse Oximetry 97 95 96 08/31/18 08:50 08/31/18 11:00 Temperature 98.8 F 98.6 F Pulse Rate 84 86 Respiratory Rate 16 16 Blood Pressure 165/93 H 163/85 H Pulse Oximetry 100 96 Intake & Output 08/30/18 08/31/18 08/31/18 18:59 06:59 18:59 Intake Total 1025 / 1025 240 / 240 Output Total 710 / 710 350 / 350 Balance 315 / 315 -110 / -110 Weight 74.5 kg Intake: Oral 1025 / 1025 240 / 240 Output: Urine 510 / 510 350 / 350 Urine Amount (Catheter) 200 / 200 Indwelling Urethral Catheter 200 / 200 Other: Date of Last Bowel Movement 08/30/18 # Bowel Movements 1 <Rodrick Cain - 08/31/18 13:49> Vital Signs 08/29/18 13:25 08/29/18 13:56 08/29/18 15:32 Temperature 98.1 F Pulse Rate 87 87 50 L Respiratory Rate 12 18 Blood Pressure 177/93 H Pulse Oximetry 99 99 08/29/18 16:05 08/29/18 19:18 08/29/18 21:19 Temperature 97.9 F 98.3 F Pulse Rate 53 L 51 L 57 L Respiratory Rate 14 16 14 Blood Pressure 110/58 L 96/50 L Pulse Oximetry 98 99 99 08/30/18 00:30 08/30/18 03:56 08/30/18 04:00 Temperature 98.4 F 98.2 F Pulse Rate 68 54 L 71 Respiratory Rate 16 12 16 Blood Pressure 102/49 L 109/59 L Pulse Oximetry 99 99 08/30/18 07:00 08/30/18 07:48 08/30/18 08:00 Temperature 98.0 F Pulse Rate 63 62 Respiratory Rate 16 Blood Pressure 109/60 Pulse Oximetry 99 95 Intake & Output 08/29/18 08/30/18 08/30/18 18:59 06:59 18:59 Intake Total 2041 / 2041 480 / 480 Output Total 365 / 365 425 / 425 Balance 1676 / 1676 55 / 55 Weight 74 kg Intake: IV 501 / 501 Heparin/NS PF Inj 500 ML @ 0 500 / 500 mls/hr .ROUTE .STK-MED ONE Rx#: [id number] Nitroglycerin Drip Premix 50 mg 1 / 1 In 250 ml @ 0 mls/hr .ROUTE . STK-MED ONE Rx#:[id number] Oral 240 / 240 480 / 480 Anesthesia Amount 1300 / 1300 Output: Estimated Blood Loss 50 / 50 Urine Amount (Catheter) 250 / 250 410 / 410 Indwelling Urethral Catheter 250 / 250 410 / 410 Wound Drainage 15 Right Lower Neck MAXIMILIANO Drain Other: Date of Last Bowel Movement 08/28/18 <Aaron Mason - 08/30/18 10:50> Narrative: GENERAL: Laying in bed, no acute distress SKIN: Warm and dry. Circular scar on anterior chest from radiation of skin cancer. HEAD: Atraumatic. Normocephalic. EYES: Pupils equal and round. No scleral icterus. No injection or drainage. ENT: No nasal bleeding or discharge. Mucous membranes pink and moist. NECK: Trachea midline. No JVD. CARDIOVASCULAR: Regular rate and rhythm. RESPIRATORY: No accessory muscle use. Clear to auscultation. Breath sounds equal bilaterally. GASTROINTESTINAL: Abdomen soft, non-tender, nondistended. Hepatic and splenic margins not palpable. MUSCULOSKELETAL: Extremities without clubbing, cyanosis, or edema. No obvious deformities. NEUROLOGICAL: Awake and alert. Peripheral vision intact on the right, reports blurred, 4/5 in left arm and leg improved from the previous day. No facial droop , speech slightly slurry, 5/5 in right arm and leg. Cranial nerves grossly intact. PSYCHIATRIC: Appropriate mood and affect; insight and judgment normal. <Aaron Mason - 08/30/18 10:50> - Urinary Catheter Management Indwelling Urethral Catheter Cath placed during this visit: no <Rodrick Cain - 08/31/18 13:49> yes, but has since been removed by the nurse <Aaron Mason - 08/30/18 10:50> Reason for continuing: Hourly intake/output <Aaron Mason - 08/30/18 10:50 > Insertion date: 08/29/18 <Aaron Mason - 08/30/18 10:50> Insertion time: 10:30 <Aaron Mason - 08/30/18 10:50> Removal date: 08/30/18 <Aaron Mason - 08/30/18 10:50> Removal time: 09:00 <Aaron Mason - 08/30/18 10:50> Assessment and Plan - Assessment (1) Right hemisphere, cerebral infarction Code(s): I63.9 - Cerebral infarction, unspecified Status: Acute (2) Symptomatic stenosis of right carotid artery Code(s): I65.21 - Occlusion and stenosis of right carotid artery Status: Acute (3) GI bleed Code(s): K92.2 - Gastrointestinal hemorrhage, unspecified Status: Acute (4) Crohns disease Code(s): K50.90 - Crohn's disease, unspecified, without complications Status: Acute (5) Diabetes Code(s): E11.9 - Type 2 diabetes mellitus without complications Status: Acute (6) HTN (hypertension) Code(s): I10 - Essential (primary) hypertension Status: Acute (7) Hypokalemia Code(s): E87.6 - Hypokalemia Status: Acute <Rodrick Cain - 08/31/18 13:49> (1) Right hemisphere, cerebral infarction Code(s): I63.9 - Cerebral infarction, unspecified Status: Acute Plan: Patient with right hemisphere stroke. No TPA was administered due to GI bleed. History of Crohn's. Dense calcified plaque at right carotid bulb region with significant stenosis. -Vascular surgery on board * Carotid artery endarterectomy with pericardial patch angioplasty performed 06/2018 -Continue Aspirin 325 mg daily -Lipid panel notable for trig of 172, Total chol 205, LDL 109, HDL 61.5 * Currently on Pravastatin 40mg PO daily * Consider switching to Atorvastatin -Permissive hypertension up to 210/110 -Follow-up echocardiogram -Pt eval and treat (2) Symptomatic stenosis of right carotid artery Code(s): I65.21 - Occlusion and stenosis of right carotid artery Status: Acute Plan: -Dense calcified plaque at right carotid bulb region with significant stenosis -Vascular surgery on board * POD1 Carotid artery endarterectomy with pericardial patch angioplasty See plan above for R hemispheric stroke (3) GI bleed Code(s): K92.2 - Gastrointestinal hemorrhage, unspecified Status: Acute Plan: History of Crohn's disease. On sulfasalazine. Hemoccult positive. He takes aspirin 325mg PO BID -Hemoglobin 11.8 on admission, 8.9 today -GI on board * Will follow along and monitor closely -Follow H&H (4) Crohns disease Code(s): K50.90 - Crohn's disease, unspecified, without complications Status: Acute Plan: -GI following -Continue sulfasalazine 500 mg p.o. every 6 hours (5) Diabetes Code(s): E11.9 - Type 2 diabetes mellitus without complications Status: Acute Plan: -Hold metformin -Accu-Cheks with low-dose sliding scale (6) HTN (hypertension) Code(s): I10 - Essential (primary) hypertension Status: Acute Plan: History of hypertension. -Hold home medications, completing permissive hypertension (7) Hypokalemia Code(s): E87.6 - Hypokalemia Status: Acute Plan: Hypokalemia on admission -Monitor and replete as needed <Aaron Mason - 08/30/18 10:39> - Assessment and Plan 62-year-old male admitted for left-sided weakness found to have a right hemispheric stroke and right symptomatic carotid stenosis on CTA. Neurology consulted. Vascular surgery was consulted and proceeded with right carotid artery endarterectomy performed on 08/29/2018. <Aaron Mason - 08/30/18 10:50> - Attending Attestation See the residents documentation for details. I saw and evaluated the patient regarding the lilly portions of this evaluation and agree with the residents findings and plans as written. Parts of this note were created using [employer] voice recognition software program. While efforts were made to correct any mistakes made by this software, some mistakes, errors, and omissions may remain in the final note that were not caught when the note was originally created. Plan of care was discussed and agreed upon with the patient as specifically documented in the above note. An opportunity to ask questions with explanation was provided. Patient voiced understanding on all information reviewed and discussed. <Rodrick Cain - 08/31/18 13:49>
[2018-08-30 13:44] LABS: Hematocrit 31.2 % (39.0-51.0); Hemoglobin 9.8 gm/dL (13.0-17.0)
--- NOTE | 2018-08-30 16:14 | P.PNGI ---
Subjective Interval history: Patient sitting up in chair at the bedside Status post carotid endarterectomy on the right Denies any noted bleeding. Physical Exam Vital signs: Vital Signs 08/29/18 19:18 08/29/18 21:19 08/30/18 00:30 Temperature 98.3 F 98.4 F Pulse Rate 51 L 57 L 68 Respiratory Rate 16 14 16 Blood Pressure 96/50 L 102/49 L Pulse Oximetry 99 99 99 08/30/18 03:56 08/30/18 04:00 08/30/18 07:00 Temperature 98.2 F Pulse Rate 54 L 71 63 Respiratory Rate 12 16 Blood Pressure 109/59 L Pulse Oximetry 99 08/30/18 07:48 08/30/18 08:00 08/30/18 11:00 Temperature 98.0 F Pulse Rate 62 64 Respiratory Rate 16 Blood Pressure 109/60 Pulse Oximetry 99 95 08/30/18 11:30 08/30/18 15:00 Temperature 98.4 F 98.2 F Pulse Rate 64 70 Respiratory Rate 18 18 Blood Pressure 121/64 118/68 Pulse Oximetry 96 96 Intake & Output 08/29/18 08/30/18 08/30/18 18:59 06:59 18:59 Intake Total 2041 / 2041 480 / 480 Output Total 365 / 365 425 / 425 Balance 1676 / 1676 55 / 55 Weight 74 kg Intake: IV 501 / 501 Heparin/NS PF Inj 500 ML @ 0 500 / 500 mls/hr .ROUTE .STK-MED ONE Rx#: [id number] Nitroglycerin Drip Premix 50 mg 1 / 1 In 250 ml @ 0 mls/hr .ROUTE . STK-MED ONE Rx#:[id number] Oral 240 / 240 480 / 480 Anesthesia Amount 1300 / 1300 Output: Estimated Blood Loss 50 / 50 Urine Amount (Catheter) 250 / 250 410 / 410 Indwelling Urethral Catheter 250 / 250 410 / 410 Wound Drainage Right Lower Neck MAXIMILIANO Drain Other: Date of Last Bowel Movement 08/28/18 - Constitutional no acute distress - Routine HEENT Exam Head: Present: normocephalic - Routine Respiratory Exam Present: CTA bilaterally - Routine Abdominal Exam Present: soft, normoactive bowel sounds. Absent: tenderness, distended, guarding, firm - Routine Extremities Exam Absent: edema - Routine Skin Exam Present: dry, warm. Absent: pallor - Routine Neurological Exam Present: alert - Urinary Catheter Management Indwelling Urethral Catheter Cath placed during this visit: yes, but has since been removed by the nurse Reason for continuing: Hourly intake/output Insertion date: 08/29/18 Insertion time: 10:30 Removal date: 08/30/18 Removal time: 09:00 Results - Labs CBC & Chem 7: 08/30/18 13:01 08/30/18 04:54 Laboratory Results - last 24 hr 08/29/18 08/29/18 08/29/18 03:46 14:24 17:37 WBC RBC Hgb Hct MCV MCH MCHC RDW Plt Count MPV Neut % (Auto) Lymph % (Auto) Robertson % (Auto) Eos % (Auto) Baso % (Auto) Neut # (Auto) Lymph # (Auto) Robertson # (Auto) Eos # (Auto) Baso # (Auto) WBC Differential Differential Comment Sodium Potassium Chloride Carbon Dioxide Anion Gap BUN Creatinine Estimated GFR POC Glucose 192 H Random Glucose Hemoglobin A1c 6.0 Calcium Calcium Adj for Albumin 8.4 L 08/29/18 08/30/18 08/30/18 23:35 04:54 04:54 WBC 9.1 RBC 3.22 L Hgb 8.9 L Hct 27.2 L MCV 84.7 MCH 27.6 MCHC 32.6 RDW 16.5 Plt Count 310 MPV 7.0 Neut % (Auto) 71.2 H Lymph % (Auto) 15.1 Robertson % (Auto) 13.5 H Eos % (Auto) 0.1 Baso % (Auto) 0.1 Neut # (Auto) 6.5 Lymph # (Auto) 1.4 Robertson # (Auto) 1.2 H Eos # (Auto) 0.0 Baso # (Auto) 0.0 WBC Differential . Differential Comment Auto diff final Sodium 142 Potassium 3.5 Chloride 108 H Carbon Dioxide 25.6 Anion Gap 8 BUN 10 Creatinine 0.74 Estimated GFR Greater than 89 POC Glucose 232 H Random Glucose 132 H Hemoglobin A1c Calcium 7.8 L Calcium Adj for Albumin 08/30/18 08/30/18 11:09 13:01 WBC RBC Hgb 9.8 L Hct 31.2 L MCV MCH MCHC RDW Plt Count MPV Neut % (Auto) Lymph % (Auto) Robertson % (Auto) Eos % (Auto) Baso % (Auto) Neut # (Auto) Lymph # (Auto) Robertson # (Auto) Eos # (Auto) Baso # (Auto) WBC Differential Differential Comment Sodium Potassium Chloride Carbon Dioxide Anion Gap BUN Creatinine Estimated GFR POC Glucose 150 H Random Glucose Hemoglobin A1c Calcium Calcium Adj for Albumin Assessment and Plan (1) Crohns disease Status: Acute Code(s): K50.90 - Crohn's disease, unspecified, without complications (2) Guaiac + stool Status: Acute Code(s): R19.5 - Other fecal abnormalities - Plan 62-year-old patient with past medical history significant for hypertension, diabetes, Crohn's disease and GERD. Surgical history significant for 3 previous cardiac stents and removal of jaw cancer. Patient presented to [facility] emergency room last evening with complaint of left-sided weakness and right-sided vision loss. CT of the head showed mild to moderate bilateral stenosis of the internal carotid arteries. Patient is awake and alert , scheduled for right carotid endarterectomy today. Patient continues to experience mild left-sided weakness but states improving. Upon arrival to [facility], patient stools were found to be guaiac positive. Our service has been consulted to evaluate patient for guaiac positive stools , history of Crohn's disease. Upon consultation, patient denies any noted bleeding of bright red blood or dark stools. He does endorse taking aspirin 325 mg p.o. twice daily for the last 8-10 years. Patient states history of KS x3 with stent placement. Patient also endorses history of GERD for which he takes Zantac 150 mg p.o. twice daily. Patient denies any symptoms of acid reflux, heartburn or difficulty swallowing. Patient denies any painful swallowing or unintentional weight loss. States last EGD done in 2017, to his recollection did not reveal ulceration or inflammation. Patient states last colonoscopy done in 2017 revealed "unchanged" Crohn's disease. Patient denies any recollection of polyps. States he has a normal BM brown in color daily without any noted bleeding. Denies any constipation or diarrhea. Denies change in bowel habits. Patient states family history significant for his father having ulcerative colitis. Patient denies any use of EtOH or tobacco products. Black positive stools History of Crohn's -Patient presented to [facility] last evening with report of left- sided weakness and vision loss. Patient awake and alert, planned right carotid endarterectomy today. History of Crohn's disease, presently taking sulfasalazine 0.5 g p.o. every 6 hours, prednisone 10 mg p.o. daily. Patient also endorsing that he takes aspirin 325 mg p.o. twice daily for the last 8-10 years. History of KS with stents. -08/29/2018 WBC 7.4 hemoglobin 10.0 hematocrit 30.6 platelet count 374 INR 1.0 08/30/2018 Patient post carotid endarterectomy. Sitting up in chair at bedside. Denies any noted bleeding. Hemoglobin 9.8 hematocrit 31.2 stable Plan -Cardiac and diabetic diet -Monitor for bleeding -Monitor labs-hemoglobin and hematocrit -Bowel regimen -Continue sulfasalazine 500 mg p.o. every 6 -Supportive care -Patient advised to follow-up with GI in office post discharge for further evaluation of Crohn's disease-patient agrees -GI will sign off at this time, please notify for any further needs This patient has been seen by myself and Dr. Holman and this note is written on his behalf - Attending Attestation Dr. Holman
[2018-08-30] MEDS: Ascorbic Acid 500 MG Tablet PO SCH (18:04)
[2018-08-30] MEDS: Ferrous Sulfate 325 MG Tablet PO SCH (18:04)
[2018-08-30] MEDS ORDERED: Naloxone Inj 0.4 MG/ML Vial IV.PUSH PRN (20:08)
[2018-08-30] MEDS ORDERED: Acetaminophen 325 MG Tablet PO PRN (20:08)
[2018-08-31] MEDS: Insulin NovoLOG Aspart Correctional Sugar Inj SQ SCH ×4 (03:08→17:00)
[2018-08-31] MEDS: sulfaSALAzine 500 MG Tablet PO SCH ×4 (08:10→17:00)
[2018-08-31 08:55] LABS: Baso % (Auto) 0.2 % (0.0-2.0); Eos % (Auto) 0.4 % (0.0-4.0); Hemoglobin 10.5 gm/dL (13.0-17.0); Lymph # (Auto) 0.8 th/mm3 (1.0-4.8); Lymph % (Auto) 7.9 % (9.0-44.0); Mean Corpuscular Hemoglobin 27.2 pg (27.0-34.0); Mean Corpuscular Volume 85.1 fL (80.0-100.0); Mono % (Auto) 9.2 % (0.0-8.0); Neut # (Auto) 8.7 th/mm3 (1.8-7.7); Neut % (Auto) 82.3 % (16.0-70.0); Platelet Count 372 th/mm3 (150-450); Red Blood Count 3.87 mil/mm3 (4.50-5.90); Red Cell Distribution Width 16.8 % (11.6-17.2); White Blood Count 10.6 th/mm3 (4.0-11.0)
[2018-08-31 09:18] LABS: Anion Gap 9 meq/L (5-15); Blood Urea Nitrogen 8 mg/dL (7-18); Calcium 8.3 mg/dL (8.5-10.1); Carbon Dioxide 26.4 meq/L (21.0-32.0); Chloride 105 meq/L (98-107); Glomerular Filtration Rate Greater Than 89 mL/min (>89); Glucose,Random 158 mg/dL (74-106); Potassium 3.4 meq/L (3.5-5.1); Sodium 140 meq/L (136-145)
--- NOTE | 2018-08-31 10:22 | P.PNFP ---
Subjective Interval history: Patient seen and examined today. No acute events overnight. He reports he is approximately 75% better. He notes that he has regained strength in his left arm and leg. He notes some continued blurriness in his right side of vision. Denies nausea, vomiting, fever, chills, abdominal pain, chest pain, shortness of breath, lightheadedness, dizziness. No other complaints today. <MarlonNeel - 08/31/18 10:22> Results - Labs Result diagrams: 08/31/18 08:23 08/31/18 08:23 <Rodrick Cain - 08/31/18 14:30> Abnormal lab results 08/30/18 08/30/18 08/31/18 Range/Units 17:26 23:10 07:28 RBC (4.50-5.90) mil/mm3 Hgb (13.0-17.0) gm/dL Hct (39.0-51.0) % Neut % (Auto) (16.0-70.0) % Lymph % (Auto) (9.0-44.0) % Blair % (Auto) (0.0-8.0) % Neut # (Auto) (1.8-7.7) th/mm3 Lymph # (Auto) (1.0-4.8) th/mm3 Blair # (Auto) (0.0-0.9) th/mm3 Potassium (3.5-5.1) meq/L POC Glucose 198 H 158 H 123 H (68-110) mg/dl Random Glucose (74-106) mg/dL Calcium (8.5-10.1) mg/dL 08/31/18 08/31/18 08/31/18 Range/Units 08:23 08:23 11:11 RBC 3.87 L (4.50-5.90) mil/mm3 Hgb 10.5 L (13.0-17.0) gm/dL Hct 33.0 L (39.0-51.0) % Neut % (Auto) 82.3 H (16.0-70.0) % Lymph % (Auto) 7.9 L (9.0-44.0) % Blair % (Auto) 9.2 H (0.0-8.0) % Neut # (Auto) 8.7 H (1.8-7.7) th/mm3 Lymph # (Auto) 0.8 L (1.0-4.8) th/mm3 Blair # (Auto) 1.0 H (0.0-0.9) th/mm3 Potassium 3.4 L (3.5-5.1) meq/L POC Glucose 138 H (68-110) mg/dl Random Glucose 158 H (74-106) mg/dL Calcium 8.3 L (8.5-10.1) mg/dL Short CBC 08/31/18 Range/Units 08:23 WBC 10.6 (4.0-11.0) th/mm3 Hgb 10.5 L (13.0-17.0) gm/dL Hct 33.0 L (39.0-51.0) % Plt Count 372 (150-450) th/mm3 BMP 08/31/18 08:23 Sodium 140 Potassium 3.4 L Chloride 105 Carbon Dioxide 26.4 BUN 8 Creatinine 0.79 Calcium 8.3 L <Rodrick Cain - 08/31/18 14:30> Abnormal lab results 08/30/18 08/30/18 08/30/18 Range/Units 11:09 13:01 17:26 RBC (4.50-5.90) mil/mm3 Hgb 9.8 L (13.0-17.0) gm/dL Hct 31.2 L (39.0-51.0) % Neut % (Auto) (16.0-70.0) % Lymph % (Auto) (9.0-44.0) % Blair % (Auto) (0.0-8.0) % Neut # (Auto) (1.8-7.7) th/mm3 Lymph # (Auto) (1.0-4.8) th/mm3 Blair # (Auto) (0.0-0.9) th/mm3 Potassium (3.5-5.1) meq/L POC Glucose 150 H 198 H (68-110) mg/dl Random Glucose (74-106) mg/dL Calcium (8.5-10.1) mg/dL 08/30/18 08/31/18 08/31/18 Range/Units 23:10 07:28 08:23 RBC 3.87 L (4.50-5.90) mil/mm3 Hgb 10.5 L (13.0-17.0) gm/dL Hct 33.0 L (39.0-51.0) % Neut % (Auto) 82.3 H (16.0-70.0) % Lymph % (Auto) 7.9 L (9.0-44.0) % Blair % (Auto) 9.2 H (0.0-8.0) % Neut # (Auto) 8.7 H (1.8-7.7) th/mm3 Lymph # (Auto) 0.8 L (1.0-4.8) th/mm3 Blair # (Auto) 1.0 H (0.0-0.9) th/mm3 Potassium (3.5-5.1) meq/L POC Glucose 158 H 123 H (68-110) mg/dl Random Glucose (74-106) mg/dL Calcium (8.5-10.1) mg/dL 08/31/18 Range/Units 08:23 RBC (4.50-5.90) mil/mm3 Hgb (13.0-17.0) gm/dL Hct (39.0-51.0) % Neut % (Auto) (16.0-70.0) % Lymph % (Auto) (9.0-44.0) % Blair % (Auto) (0.0-8.0) % Neut # (Auto) (1.8-7.7) th/mm3 Lymph # (Auto) (1.0-4.8) th/mm3 Blair # (Auto) (0.0-0.9) th/mm3 Potassium 3.4 L (3.5-5.1) meq/L POC Glucose (68-110) mg/dl Random Glucose 158 H (74-106) mg/dL Calcium 8.3 L (8.5-10.1) mg/dL Short CBC 18 08/31/18 Range/Units 13:01 08:23 WBC 10.6 (4.0-11.0) th/mm3 Hgb 9.8 L 10.5 L (13.0-17.0) gm/dL Hct 31.2 L 33.0 L (39.0-51.0) % Plt Count 372 (150-450) th/mm3 BMP 08/31/18 08:23 Sodium 140 Potassium 3.4 L Chloride 105 Carbon Dioxide 26.4 BUN 8 Creatinine 0.79 Calcium 8.3 L <Aaron Mason - 08/31/18 10:22> Physical Exam Vital signs: Vital Signs 08/30/18 15:00 08/30/18 19:00 08/30/18 20:00 Temperature 98.2 F 98.5 F Pulse Rate 70 80 Respiratory Rate 18 17 Blood Pressure 118/68 160/76 H Pulse Oximetry 96 97 97 08/30/18 23:00 08/31/18 03:00 08/31/18 08:25 Temperature Pulse Rate 78 71 Respiratory Rate 18 18 Blood Pressure 132/70 132/70 Pulse Oximetry 97 95 96 08/31/18 08:50 08/31/18 11:00 Temperature 98.8 F 98.6 F Pulse Rate 84 86 Respiratory Rate 16 16 Blood Pressure 165/93 H 163/85 H Pulse Oximetry 100 96 Intake & Output 08/30/18 08/31/18 08/31/18 18:59 06:59 18:59 Intake Total 1025 / 1025 240 / 240 Output Total 710 / 710 350 / 350 Balance 315 / 315 -110 / -110 Weight 74.5 kg Intake: Oral 1025 / 1025 240 / 240 Output: Urine 510 / 510 350 / 350 Urine Amount (Catheter) 200 / 200 Indwelling Urethral Catheter 200 / 200 Other: Date of Last Bowel Movement 08/30/18 # Bowel Movements 1 <Rodrick Cain - 08/31/18 14:30> Vital Signs 08/30/18 11:00 08/30/18 11:30 08/30/18 15:00 Temperature 98.4 F 98.2 F Pulse Rate 64 64 70 Respiratory Rate 18 18 Blood Pressure 121/64 118/68 Pulse Oximetry 96 96 08/30/18 19:00 08/30/18 20:00 08/30/18 23:00 Temperature 98.5 F Pulse Rate 80 78 Respiratory Rate 17 18 Blood Pressure 160/76 H 132/70 Pulse Oximetry 97 97 97 08/31/18 03:00 08/31/18 08:25 08/31/18 08:50 Temperature 98.8 F Pulse Rate 71 84 Respiratory Rate 18 16 Blood Pressure 132/70 165/93 H Pulse Oximetry 95 96 100 Intake & Output 08/30/18 08/31/1818 18:59 06:59 18:59 Intake Total 1025 / 1025 240 / 240 Output Total 710 / 710 350 / 350 Balance 315 / 315 -110 / -110 Weight 74.5 kg Intake: Oral 1025 / 1025 240 / 240 Output: Urine 510 / 510 350 / 350 Urine Amount (Catheter) 200 / 200 Indwelling Urethral Catheter 200 / 200 Other: Date of Last Bowel Movement 08/30/18 # Bowel Movements 1 <Aaron Mason - 08/31/18 10:22> Narrative: GENERAL: Laying in bed, no acute distress SKIN: Warm and dry. Circular scar on anterior chest from radiation of skin cancer. HEAD: Atraumatic. Normocephalic. EYES: Pupils equal and round. No scleral icterus. No injection or drainage. ENT: No nasal bleeding or discharge. Mucous membranes pink and moist. NECK: Trachea midline. No JVD. CARDIOVASCULAR: Regular rate and rhythm. RESPIRATORY: No accessory muscle use. Clear to auscultation. Breath sounds equal bilaterally. GASTROINTESTINAL: Abdomen soft, non-tender, nondistended. Hepatic and splenic margins not palpable. MUSCULOSKELETAL: Extremities without clubbing, cyanosis, or edema. No obvious deformities. NEUROLOGICAL: Awake and alert. Peripheral vision intact on the right, reports blurred, 5/5 in left arm and leg improved from the previous day. No facial droop , speech slightly slurred, 5/5 in right arm and leg. Cranial nerves grossly intact. PSYCHIATRIC: Appropriate mood and affect; insight and judgment normal. <Aaron Mason - 08/31/18 10:22> - Urinary Catheter Management Indwelling Urethral Catheter Cath placed during this visit: no <Rodrick Cain - 08/31/18 14:30> yes, but has since been removed by the nurse <Aaron Mason - 08/31/18 10:22> Reason for continuing: Hourly intake/output <Aaron Mason - 08/31/18 10:22 > Insertion date: 08/29/18 <Aaron Mason - 08/31/18 10:22> Insertion time: 10:30 <Aaron Mason - 08/31/18 10:22> Removal date: 08/30/18 <Aaron Mason - 08/31/18 10:22> Removal time: 09:00 <Aaron Mason - 08/31/18 10:22> Assessment and Plan - Assessment (1) Right hemisphere, cerebral infarction Code(s): I63.9 - Cerebral infarction, unspecified Status: Acute (2) Symptomatic stenosis of right carotid artery Code(s): I65.21 - Occlusion and stenosis of right carotid artery Status: Acute (3) GI bleed Code(s): K92.2 - Gastrointestinal hemorrhage, unspecified Status: Acute (4) Crohns disease Code(s): K50.90 - Crohn's disease, unspecified, without complications Status: Acute (5) Diabetes Code(s): E11.9 - Type 2 diabetes mellitus without complications Status: Acute (6) HTN (hypertension) Code(s): I10 - Essential (primary) hypertension Status: Acute (7) Hypokalemia Code(s): E87.6 - Hypokalemia Status: Acute <CainRodrick - 08/31/18 14:30> (1) Right hemisphere, cerebral infarction Code(s): I63.9 - Cerebral infarction, unspecified Status: Acute Plan: Patient with right hemisphere stroke. No TPA was administered due to GI bleed. History of Crohn's. Dense calcified plaque at right carotid bulb region with significant stenosis. -Vascular surgery on board * Carotid artery endarterectomy with pericardial patch angioplasty performed 06/2018 -Continue Aspirin 325 mg daily -Lipid panel notable for trig of 172, Total chol 205, LDL 109, HDL 61.5 * Currently on Pravastatin 40mg PO daily * Consider switching to Atorvastatin -Pt eval and treat (2) Symptomatic stenosis of right carotid artery Code(s): I65.21 - Occlusion and stenosis of right carotid artery Status: Acute Plan: -Dense calcified plaque at right carotid bulb region with significant stenosis -Vascular surgery on board * POD2 Carotid artery endarterectomy with pericardial patch angioplasty See plan above for R hemispheric stroke (3) GI bleed Code(s): K92.2 - Gastrointestinal hemorrhage, unspecified Status: Acute Plan: History of Crohn's disease. On sulfasalazine. Hemoccult positive. He takes aspirin 325mg PO BID -Hemoglobin uptrending -GI on board * Follow-up outpatient -Follow H&H (4) Crohns disease Code(s): K50.90 - Crohn's disease, unspecified, without complications Status: Acute Plan: -GI following -Continue sulfasalazine 500 mg p.o. every 6 hours (5) Diabetes Code(s): E11.9 - Type 2 diabetes mellitus without complications Status: Acute Plan: -Hold metformin -Accu-Cheks with low-dose sliding scale (6) HTN (hypertension) Code(s): I10 - Essential (primary) hypertension Status: Acute Plan: History of hypertension. -Will restart upon discharge (7) Hypokalemia Code(s): E87.6 - Hypokalemia Status: Acute Plan: Hypokalemia on admission -Monitor and replete as needed <Aaron Mason - 08/31/18 10:18> - Assessment and Plan 62-year-old male admitted for left-sided weakness found to have a right hemispheric stroke and right symptomatic carotid stenosis on CTA. Neurology consulted. Vascular surgery was consulted and proceeded with right carotid artery endarterectomy performed on 08/29/2018. <Aaron Mason - 08/31/18 10:22> - Attending Attestation See the residents documentation for details. I saw and evaluated the patient regarding the lilly portions of this evaluation and agree with the residents findings and plans as written. Parts of this note were created using [employer] voice recognition software program. While efforts were made to correct any mistakes made by this software, some mistakes, errors, and omissions may remain in the final note that were not caught when the note was originally created. Plan of care was discussed and agreed upon with the patient as specifically documented in the above note. An opportunity to ask questions with explanation was provided. Patient voiced understanding on all information reviewed and discussed. <Rodrick Cain - 08/31/18 14:30>
[2018-08-31] MEDS: Ferrous Sulfate 325 MG Tablet PO SCH ×2 (11:12→16:57)
[2018-08-31] MEDS: Ascorbic Acid 500 MG Tablet PO SCH ×2 (11:12→16:57)
--- NOTE | 2018-08-31 12:17 | P.DCO ---
- Physical Therapy Order: Evaluate and treat, Improve ambulation, Strength and gait training - Home Health Nursing Order: Nursing assessment with vital signs - Case Management Consult Case Management Consult-Home Health: Yes - Certification I have seen patient Huber Winston on 08/31/18. My clinical findings support the need for the requested home health care services because: Limited mobility due to disease progression I certify that my clinical findings support that this patient is homebound because: Unsteady gait/balance
--- NOTE | 2018-08-31 12:35 | P.DCO ---
- Home Health Nursing Order: Medical education, Signs/symptoms of disease process, Nursing assessment with vital signs - Case Management Consult Case Management Consult-Home Health: Yes - Certification I have seen patient Huber Winston on 08/31/18. My clinical findings support the need for the requested home health care services because: Need for psychosocial assistance I certify that my clinical findings support that this patient is homebound because: Impaired cognitive ability/safety
[2018-08-31] MEDS: Metoprolol Tartrate 100 MG Tablet PO SCH (21:26)
[2018-09-01] MEDS: sulfaSALAzine 500 MG Tablet PO SCH ×2 (01:20→06:23)
[2018-09-01] MEDS: Insulin NovoLOG Aspart Correctional Sugar Inj SQ SCH ×2 (01:20→06:23)
[2018-09-01 04:47] VITALS: O2SAT 97
[2018-09-01] MEDS: Metoprolol Tartrate 100 MG Tablet PO SCH (09:15)
[2018-09-01 09:31] VITALS: BP 145/75; RESP 18; TEMP 99.9
--- NOTE | 2018-09-01 09:51 | P.PNFP ---
Subjective Interval history: Patient seen and examined today. Patient was unable to go home last night due to home health need to be set up. No acute events overnight. Patient reports 80% better. Significantly improved left-sided weakness. Reports his right eye still blurry, however mildly improved. Denies nausea, vomiting, fever, chills, abdominal pain, chest pain, shortness of breath , lightheadedness, dizziness. No other complaints today. <Aaron Mason - 09/01/18 10:27> Results - Labs Result diagrams: 08/31/18 08:23 08/31/18 08:23 <Rodrick Cain - 09/01/18 13:59> Abnormal lab results 08/31/18 08/31/18 Range/Units 16:59 23:15 POC Glucose 134 H 128 H (68-110) mg/dl <Rodrick Cain - 09/01/18 13:59> Abnormal lab results 08/31/18 08/31/18 08/31/18 Range/Units 11:11 16:59 23:15 POC Glucose 138 H 134 H 128 H (68-110) mg/dl <Aaron Mason - 09/01/18 09:51> Physical Exam Vital signs: Vital Signs 08/31/18 14:00 08/31/18 15:00 08/31/18 19:00 Temperature 98.2 F 98.3 F Pulse Rate 86 98 H 71 Respiratory Rate 16 17 Blood Pressure 162/97 H 162/82 H Pulse Oximetry 97 97 08/31/18 20:00 08/31/18 23:00 09/01/18 03:00 Temperature 97.5 F L 98.5 F Pulse Rate 78 58 L Respiratory Rate 17 17 Blood Pressure 129/70 112/60 Pulse Oximetry 97 96 97 09/01/18 07:00 09/01/18 08:00 09/01/18 09:00 Temperature 99.9 F H Pulse Rate 69 82 66 Respiratory Rate 18 Blood Pressure 145/75 H Pulse Oximetry 97 97 09/01/18 10:07 Temperature Pulse Rate Respiratory Rate Blood Pressure Pulse Oximetry 97 Intake & Output 08/31/18 09/01/18 09/01/18 18:59 06:59 18:59 Intake Total 860 / 860 240 / 240 Output Total 900 / 900 350 / 350 Balance -40 / -40 -110 / -110 Weight 74 kg Intake: Oral 860 / 860 240 / 240 Output: Urine 900 / 900 350 / 350 Other: Date of Last Bowel Movement 08/31/18 <Rodrick Cain - 09/01/18 13:59> Vital Signs 08/31/18 10:00 08/31/18 11:00 08/31/18 12:00 Temperature 98.6 F Pulse Rate 84 86 110 H Respiratory Rate 16 Blood Pressure 163/85 H Pulse Oximetry 96 08/31/18 13:00 08/31/18 14:00 08/31/18 15:00 Temperature 98.2 F Pulse Rate 96 H 86 98 H Respiratory Rate 16 Blood Pressure 162/97 H Pulse Oximetry 97 08/31/18 19:00 08/31/18 20:00 08/31/18 23:00 Temperature 98.3 F 97.5 F L Pulse Rate 71 78 Respiratory Rate 17 17 Blood Pressure 162/82 H 129/70 Pulse Oximetry 97 97 96 09/01/18 03:00 09/01/18 07:00 09/01/18 08:00 Temperature 98.5 F 99.9 F H Pulse Rate 58 L 69 Respiratory Rate 17 18 Blood Pressure 112/60 145/75 H Pulse Oximetry 97 97 97 Intake & Output 08/31/18 09/01/18 09/01/18 18:59 06:59 18:59 Intake Total 860 / 860 240 / 240 Output Total 900 / 900 350 / 350 Balance -40 / -40 -110 / -110 Weight 74 kg Intake: Oral 860 / 860 240 / 240 Output: Urine 900 / 900 350 / 350 Other: Date of Last Bowel Movement 08/31/18 <Aaron Mason - 09/01/18 09:51> Narrative: GENERAL: Laying in bed, no acute distress SKIN: Warm and dry. Circular scar on anterior chest from radiation of skin cancer. HEAD: Atraumatic. Normocephalic. EYES: Pupils equal and round. No scleral icterus. No injection or drainage. ENT: No nasal bleeding or discharge. Mucous membranes pink and moist. NECK: Trachea midline. No JVD. CARDIOVASCULAR: Regular rate and rhythm. RESPIRATORY: No accessory muscle use. Clear to auscultation. Breath sounds equal bilaterally. GASTROINTESTINAL: Abdomen soft, non-tender, nondistended. Hepatic and splenic margins not palpable. MUSCULOSKELETAL: Extremities without clubbing, cyanosis, or edema. No obvious deformities. NEUROLOGICAL: Awake and alert. Peripheral vision intact on the right, reports blurred, 5/5 in left arm and leg improved from the previous day. No facial droop , speech slightly slurred, 5/5 in right arm and leg. Cranial nerves grossly intact. PSYCHIATRIC: Appropriate mood and affect; insight and judgment normal. <Aaron Mason - 09/01/18 10:27> - Urinary Catheter Management Indwelling Urethral Catheter Cath placed during this visit: no <Rodrick Cain - 09/01/18 13:59> yes, but has since been removed by the nurse <Aaron Mason - 09/01/18 10:27> Reason for continuing: Hourly intake/output <Aaron Mason - 09/01/18 09:51 > Insertion date: 08/29/18 <Aaron Mason - 09/01/18 09:51> Insertion time: 10:30 <Aaron Mason - 09/01/18 09:51> Removal date: 08/30/18 <Aaron Mason - 09/01/18 09:51> Removal time: 09:00 <Aaron Mason - 09/01/18 09:51> Assessment and Plan - Assessment (1) Right hemisphere, cerebral infarction Code(s): I63.9 - Cerebral infarction, unspecified Status: Acute (2) Symptomatic stenosis of right carotid artery Code(s): I65.21 - Occlusion and stenosis of right carotid artery Status: Acute (3) GI bleed Code(s): K92.2 - Gastrointestinal hemorrhage, unspecified Status: Acute (4) Crohns disease Code(s): K50.90 - Crohn's disease, unspecified, without complications Status: Acute (5) Diabetes Code(s): E11.9 - Type 2 diabetes mellitus without complications Status: Acute (6) HTN (hypertension) Code(s): I10 - Essential (primary) hypertension Status: Acute (7) Hypokalemia Code(s): E87.6 - Hypokalemia Status: Acute <Rodrick Cain - 09/01/18 13:59> (1) Right hemisphere, cerebral infarction Code(s): I63.9 - Cerebral infarction, unspecified Status: Acute Plan: Patient with right hemisphere stroke. No TPA was administered due to GI bleed. History of Crohn's. Dense calcified plaque at right carotid bulb region with significant stenosis. -Vascular surgery on board * Carotid artery endarterectomy with pericardial patch angioplasty performed 06/2018 -Continue Aspirin 325 mg daily -Lipid panel notable for trig of 172, Total chol 205, LDL 109, HDL 61.5 * Currently on Pravastatin 40mg PO daily * Consider switching to Atorvastatin -Pt eval and treat (2) Symptomatic stenosis of right carotid artery Code(s): I65.21 - Occlusion and stenosis of right carotid artery Status: Acute Plan: -Dense calcified plaque at right carotid bulb region with significant stenosis -Vascular surgery on board * POD2 Carotid artery endarterectomy with pericardial patch angioplasty See plan above for R hemispheric stroke (3) GI bleed Code(s): K92.2 - Gastrointestinal hemorrhage, unspecified Status: Acute Plan: History of Crohn's disease. On sulfasalazine. Hemoccult positive. He takes aspirin 325mg PO BID -Hemoglobin uptrending -GI on board * Follow-up outpatient -Follow H&H (4) Crohns disease Code(s): K50.90 - Crohn's disease, unspecified, without complications Status: Acute Plan: -GI following -Continue sulfasalazine 500 mg p.o. every 6 hours (5) Diabetes Code(s): E11.9 - Type 2 diabetes mellitus without complications Status: Acute Plan: -Hold metformin -Accu-Cheks with low-dose sliding scale (6) HTN (hypertension) Code(s): I10 - Essential (primary) hypertension Status: Acute Plan: History of hypertension. -Metoprolol was restarted in hospital, normotensive, can follow-up with PCP to restart other antihypertensives (7) Hypokalemia Code(s): E87.6 - Hypokalemia Status: Acute Plan: Hypokalemia on admission -Monitor and replete as needed <Aaron Mason - 09/01/18 10:11> - Assessment and Plan 62-year-old male admitted for left-sided weakness found to have a right hemispheric stroke and right symptomatic carotid stenosis on CTA. Neurology consulted. Vascular surgery was consulted and proceeded with right carotid artery endarterectomy performed on 08/29/2018. <Aaron Mason - 09/01/18 10:27> - Attending Attestation See the residents documentation for details. I saw and evaluated the patient regarding the lilly portions of this evaluation and agree with the residents findings and plans as written. Parts of this note were created using [employer] voice recognition software program. While efforts were made to correct any mistakes made by this software, some mistakes, errors, and omissions may remain in the final note that were not caught when the note was originally created. Plan of care was discussed and agreed upon with the patient as specifically documented in the above note. An opportunity to ask questions with explanation was provided. Patient voiced understanding on all information reviewed and discussed. <Rodrick Cain - 09/01/18 13:59>
[2018-09-01] MEDS ORDERED: Morphine Inj 4 MG/ML Vial IV.PUSH PRN (10:10)
[2018-09-01] MEDS ORDERED: Nitroglycerin SL (Override) 0.4 MG Tab SL PRN (10:13)
[2018-09-01 10:14] VITALS: PULSE 66
[2018-09-01] MEDS ORDERED: Heparin - SQ 10,000 UNITS/ML Vial SQ SCH (10:15)
[2018-09-01] MEDS ORDERED: KCL 20 mEq/D5W/NaCl 0.45% Inj 1,000 ML IV.CONT SCH (10:15)
[2018-09-02] MEDS ORDERED: Aspirin 325 MG Tablet PO SCH (09:00)
[2018-09-02] MEDS ORDERED: predniSONE 10 MG Tablet PO SCH (09:00)
== END 2018-09-01 10:26 | disposition home health service (06) ==
LOC: NEPE 16:55 → NEDA 18:11 → HCPC 20:56 → HCVI 08-29 13:44 → HCPC 08-30 18:41
PROVIDERS: ADMIT Family Medicine; ATTEND Family Medicine